=== PATIENT | female | born 1955 | race Caucasian/White ===

== ENCOUNTER → 2018-02-21 14:07 | Outpatient (CLI) | payer BC, SELFPAY ==
--- NOTE | 2018-02-21 14:10 | MM_ITS ---
MM Dig screening mamm BI w/CAD ORDERING PHYSICIAN : Mik Marin MD PATIENT AGE: 62 years GENDER: Female COMPARISON: January 2017, 2015, 2014 and October 2013 distal bowel mammogram studies. The INDICATION: ITS.REASON: SCREENING no hormones. No new complaints. Noncontributory family history. TECHNIQUE: Standard CC and MLO images were obtained. R2 CAD reviewed. FINDINGS: Moderate fibroglandular elements remaining throughout both breast .. Prior films are helpful and supportive stable appearance bilaterally with no significant new findings. Stable mild asymmetry. CAD computer review highlights no areas of significant concern either RIGHT BREAST:No new areas of concern. LEFT BREAST:. No new areas of significant concern. Asymmetric area of density at the far lateral left breast unchanged. IMPRESSION: Stable bilateral mammogram. Bilateral follow-up in one year recommended BI-RADS Category: 1 Negative RECOMMENDED FOLLOW-UP: 1YR 1 YEAR FOLLOW-UP (A letter has been sent to the patient regarding results of the study.)
== END ==
PROVIDERS: PCP Family Medicine; Visit Provider Family Medicine
DX: Z12.31 Encounter for screening mammogram for malignant neoplasm of breast (principal)
CPT/HCPCS: 77067

== ENCOUNTER → 2018-11-14 06:55 | Outpatient (CLI) | payer BC, SELFPAY ==
[2018-11-14 07:44] LABS: Basophils % 0.9 % (0.1-2.0); Eosinophils # 0.1 K/mm3 (0.0-0.4); Eosinophils % 2.4 % (0.1-12.0); Hematocrit 41.6 % (37.0-47.0); Hemoglobin 13.4 g/dL (12.2-16.2); Lymphocytes # 1.3 K/mm3 (0.7-4.5); Lymphocytes % 29.4 % (10-50); Mean Corpuscular HGB Conc 32.1 g/dL (31.8-35.4); Mean Corpuscular Hemoglobin 30.8 pg (27.0-31.2); Mean Corpuscular Volume 95.7 fl (81-99); Mean Platelet Volume 7.7 fl (7.4-10.4); Monocytes # 0.2 K/mm3 (0.1-1.0); Monocytes % 4.3 % (1.7-9.3); Neutrophils # 2.9 K/mm3 (1.8-7.8); Platelet Count 174 K/mm3 (142-424); Red Blood Count 4.35 M/mm3 (4.20-5.40); Red Cell Distribution Width 13.9 % (11.5-17.5); White Blood Count 4.6 K/mm3 (4.8-10.8)
[2018-11-14 08:46] LABS: Alanine Aminotransferase 20 U/L (12-78); Albumin Level 3.7 gm/dL (3.4-5.0); Albumin/Globulin Ratio 1.2 (1.1-1.8); Alkaline Phosphatase 57 U/L (46-116); Aspartate Amino Transferase 15 U/L (15-37); Bilirubin,Total 0.4 mg/dL (0.2-1.0); Blood Urea Nitrogen 13 mg/dL (7-18); Carbon Dioxide 31 mmol/L (21.0-32.0); Chloride 103 mmol/L (98-107); Chol/HDL Ratio 3.2 (1-3.5); Cholesterol 208 mg/dL (140-200); Estimated Glomerular Filt Rate 84 ml/min (>60); Ferritin 54 ng/mL (8-388); Free T4 (Free Thyroxine) 1.14 ng/dl (0.76-1.46); GFR (African American) 102 ML/MIN (>60); Globulin 3.2 gm/dl (1.3-3.2); Glucose 85 mg/dL (74-106); HDL Cholesterol 66 mg/dL (29-89); LDL Cholesterol 131 mg/dL (0-130); Sodium 141 mmol/L (136-145); Thyroid Stimulating Hormone 2.68 uIU/ml (0.358-3.740); Total Protein,Serum 6.9 gm/dL (6.4-8.2); Triglycerides 56 mg/dL (30-200); VLDL Cholesterol 11 mg/dL (0-40)
[2018-11-15 08:31] LABS: Iron 59 ug/dL (27-139); UIBC 209 ug/dL (118-369)
[2018-11-15 22:28] LABS: Iron Saturation 22 % (15-55)
== END ==
PROVIDERS: PCP Family Medicine; Visit Provider Family Medicine
DX: E03.9 Hypothyroidism, unspecified (principal); E78.5 Hyperlipidemia, unspecified; D50.8 Other iron deficiency anemias
CPT/HCPCS: 36415; 80053; 80061; 82728; 83540; 83550; 84439; 84443; 85025

== ENCOUNTER → 2019-01-13 10:10 | Outpatient (CLI) | payer BC, SELFPAY ==
--- NOTE | 2019-01-13 10:16 | XR_ITS ---
PROCEDURE: XR LUMBAR SPINE MIN 4V CLINICAL INDICATION: RT SIDED SCIATICA COMPARISON: No exams were available for comparison FINDINGS: There is severe degenerative disc disease at L4-5 with grade 2 spondylolisthesis of L4 of 17 mm with facet hypertrophic changes. No acute fracture or dislocation is evident. IMPRESSION: Grade 2 spondylolisthesis of L4 on L5 with severe degenerative disc disease at that level Dictated by: Delonte Mukherjee MD 01/13/2019 17:47 Electronically signed by Delonte Mukherjee MD in [place] 01/13/2019 17:47
--- NOTE | 2019-01-13 10:16 | XR_ITS ---
PROCEDURE: XR HIP RT 2-3V W/PELVIS CLINICAL INDICATION: RT HIP PAIN COMPARISON: No exams were available for comparison FINDINGS: There are mild osteoarthritic changes involving both hips with decrease in the joint space, osteosclerosis, and osteophyte formation along the inferior aspect of the acetabulum. No fracture or dislocation. No lytic or blastic change. IMPRESSION: Osteoarthritis of the hips Dictated by: Delonte Mukherjee MD 01/13/2019 17:48 Electronically signed by Delonte Mukherjee MD in [place] 01/13/2019 17:48
== END ==
PROVIDERS: PCP Family Medicine; Visit Provider Family Medicine
DX: M25.551 Pain in right hip (principal); M54.31 Sciatica, right side
CPT/HCPCS: 72110; 73502

== ENCOUNTER → 2019-01-30 13:23 | Outpatient (CLI) | payer BC, SELFPAY ==
--- NOTE | 2019-01-30 13:31 | MR_ITS ---
PROCEDURE: MR LUMBAR SPINE WO CON CLINICAL INDICATION: RIGHT SIDED SCIATICA, LUMBAR DDD Right lower extremity and right buttock pain, prior surgery COMPARISON: XR LUMBAR SPINE MIN 4V from 01/13/2019 TECHNIQUE: Standard multiplanar multiecho sequences are performed without contrast. 3-D MIP and myelographic images are also rendered and reviewed FINDINGS: The spinal cord ends at the L1 level. T11-T12: Degenerative disc disease. T12-L1: Mild degenerative disc disease. L1-L2: Unremarkable. L2-L3: Minimal bulging disc. L3-L4: Minimal bulging disc with mild facet and ligamentum hypertrophy with mild bilateral lateral recess narrowing from the facet and ligamentum hypertrophy. L4-5: There is 12 mm spondylolisthesis of L4 on L5 with severe degenerative disc disease at that level. A definite pars defect is not appreciated. There are facet arthritic changes at L4-L5 with severe canal stenosis at this level with the canal measuring approximately 5-6 mm. There is severe bilateral lateral recess and foraminal narrowing. At T1 and T2 hyperintensities noted in the L5 vertebral body at 16 mm. This remains hyperintense on the STIR images and is consistent with a hemangioma with only slight increased signal on the T1 weighted images. L5-S1: Facet ligamentum hypertrophy with mild left-sided foraminal narrowing No extruded herniated disc are evident. No acute fracture IMPRESSION: 1. L4-5: There is 12 mm spondylolisthesis of L4 on L5 with severe degenerative disc disease at that level. There are facet arthritic changes at L4-L5 with severe canal stenosis at this level with the canal measuring approximately 5-6 mm. There is severe bilateral lateral recess and foraminal narrowing. Hemangioma at L5. The 2. Other degenerative changes as described above. 3. No extruded herniated disc evident Dictated by: Delonte Mukherjee MD 01/31/2019 05:51 Electronically signed by Delonte Mukherjee MD in [place] 01/31/2019 05:51
== END ==
PROVIDERS: PCP Family Medicine; Visit Provider Family Medicine
DX: M54.31 Sciatica, right side (principal); M51.36 Other intervertebral disc degeneration, lumbar region; M43.16 Spondylolisthesis, lumbar region
CPT/HCPCS: 72148; 76376

== ENCOUNTER → 2019-03-02 13:43 | Outpatient (POV) | payer BC, SELFPAY ==
[2019-03-02 13:52] VITALS: BP 146/78; PULSE 78; RESP 18; O2SAT 99; BMI 25.8
--- NOTE | 2019-03-02 14:36 | HMH.PMCON ---
Assessment and Plan (1) Sacroiliitis Current visit: Yes Status: Chronic Category: Medical Code(s): M46.1 - Sacroiliitis, not elsewhere classified (2) Low back pain Current visit: Yes Status: Chronic Qualifiers: Chronicity: chronic Back pain laterality: bilateral Sciatica presence: with sciatica Category: Medical Code(s): M54.5 - Low back pain (3) Degenerative joint disease (DJD) of lumbar spine Current visit: Yes Status: Chronic Qualifiers: Spinal osteoarthritis complication: with radiculopathy Qualified Code(s): M47.26 - Other spondylosis with radiculopathy, lumbar region Category: Medical Code(s): M47.816 - Spondylosis without myelopathy or radiculopathy, lumbar region (4) Spinal stenosis Current visit: Yes Status: Chronic Qualifiers: Spinal region: lumbar Category: Medical Code(s): M48.00 - Spinal stenosis, site unspecified (5) Lumbar radiculopathy Current visit: Yes Status: Chronic Category: Medical Code(s): M54.16 - Radiculopathy, lumbar region (6) Facet arthropathy Current visit: Yes Status: Chronic Category: Medical Code(s): M47.819 - Spondylosis without myelopathy or radiculopathy, site unspecified - Assessment and plan all Dx Assessment and Plan for all problems:: The patient does have notable point tenderness over her right SI joint. She also has point tenderness over her right trochanteric bursa. Her symptoms and positive Ghada, Griffin's, compression, and distraction test, the patient would benefit from a right SI joint injection and a right trochanteric bursa injection. We will schedule her for the injections. The patient and I did discuss diclofenac gel, however, the patient says that she has not met her deductible and will not be able to afford medication at this time. She will continue, however, with a home stretching program. She is not interested in taking any type of oral anti-inflammatories. Patient's been instructed to contact clinic if she has any concerns before next point. Dr. Alcantara has reviewed this note and agrees with this plan of care. This note was dictated using voice recognition software and make contain errors or omissions. HPI - Data of Consult Patient: new to practice Consult date: 03/02/19 Requesting Physician: Carolina Lamb APRN Primary Care Provider: Mik Marin MD - Consult Narrative Reason for consult: Low back pain, right groin pain, right hip pain, right leg pain History of present illness: Ms. Leslie is a 63 year old female Patient is a pleasant 63-year-old white female who presents today for consultation for low back pain with lumbar radiculopathy symptoms, as well right groin pain and right hip pain. Patient reports that her pain has been ongoing for the last 3 months. She says the pain is worse with movement. The pain does improve with sitting. Patient says that her pain begins in her low back with radiation into her right groin area and right hip area. The pain does radiate to the medial thigh area and stops her knee. She rates her pain a 6 out of 10 today. She does admit that she does not take any type of oral medications. She does not like taking ibuprofen or any [id number] oral medications. Patient says that her mother developed severe reactions to oral medications and she will not take them as a result. She does, however, continue with home stretching program. Patient says that she exercises approximately 45 minutes every morning. Patient has undergone physical therapy as well. She tries ice and heat therapies but is gotten little to no relief. Patient says that she has had recent imaging of her lumbar spine. CC: Carolina Lamb APRN [facility] History I have reviewed the patient's past medical history: Yes Medical History: Denies:: Diabetes Mellitus Type 1, Diabetes Mellitus Type 2 *Have you ever received a pneumonia vaccine?: Yes *Have you received a flu vaccine this s
== END ==
PROVIDERS: PCP Family Medicine; Visit Provider Clinical Nurse Specialist Family Health
DX: M46.1 Sacroiliitis, not elsewhere classified (principal); M47.816 Spondylosis without myelopathy or radiculopathy, lumbar region; M48.00 Spinal stenosis, site unspecified; M54.16 Radiculopathy, lumbar region
CPT/HCPCS: 99202

== ENCOUNTER → 2019-03-05 10:08 | Outpatient (CLI) | payer BC, SELFPAY ==
--- NOTE | 2019-03-05 10:12 | MM_ITS ---
PROCEDURE: MM DIG SCREENING MAMM BI W/CAD Patient Age:63Y CLINICAL INDICATION: SCREENING 63-year-old no hormones previous total hysterectomy. No new complaints. No family history (patient adopted) COMPARISON: [facility] DIGITAL MAMM-SCREEN BILATERAL from 10/02/2010 [facility] DIGITAL MAMM-SCREEN BILATERAL from 10/03/2011 [id number] DIG MAMM-DX UNIL ADD VIEWS-RT from 10/26/2011 [facility] DIG MAMM-SCREEN [place] from 10/28/2012 [facility] DIG MAMM-SCREEN [place] from 11/10/2013 [facility] DIG MAMM-SCREEN [place] from 01/27/2015 [facility] DIG MAMM-SCREEN [place] from 01/30/2016 [facility] DIG MAMM-SCREEN [place] W/CAD from 01/31/2017 [facility] MM Dig screening mamm BI w/CAD from 02/21/2018 TECHNIQUE: . Standard CC and MLO images were obtained. R2 CAD reviewed. FINDINGS: Moderate density breast but no new suspicious or dominant mass but no suspicious calcifications. CAD highlights no areas of significant concern. No significant change since prior studies-stable mild asymmetry. Right breast stable with no new areas of concern. Small stable focal area of density, possible dilated duct vs overlapping tissue, lateral retroareolar region on CC view and again seen towards superior breast but this unchanged since 2016 and 2014. Can be followed safely. Left mammogram stable no new areas of concern . Left breast bilateral follow-up 1 year recommended IMPRESSION: Stable bilateral mammogram No new areas of of concern Bilateral follow-up 1 year recommended BI-RAD Category: 2 Benign Finding(s) FOLLOW-UP: 1YR 1 Year Follow-up (A letter has been sent to the patient regarding results of the study.) Complete Dictated by: Frank Vazquez MD 03/06/2019 09:03 Electronically signed by Frank Vazquez MD in [place] 03/06/2019 09:03
== END ==
PROVIDERS: PCP Family Medicine; Visit Provider Family Medicine
DX: Z12.31 Encounter for screening mammogram for malignant neoplasm of breast (principal)
CPT/HCPCS: 77067

== ENCOUNTER → 2019-04-14 10:41 | Outpatient (POV) | payer BC, SELFPAY ==
[2019-04-14 11:21] VITALS: BP 165/63; PULSE 70; RESP 18; O2SAT 98; BMI 25.8
--- NOTE | 2019-04-14 12:34 | P.CONS_ITS ---
[facility] Pain Management SOAP Note Subjective:: Patient is a pleasant 64-year-old white female who presents today for follow-up after a sacroiliac joint injection and a piriformis injection. Patient was doing well until recently but her pain pattern has changed. She is now having radiation down her legs along with muscle cramps. She rates her pain a 9 out of 10. Patient and I had discussed the potential epidural steroid injection I do believe this would be beneficial she is having low back and radiation now into her feet. Patient is not on any anticoagulation therapy. She is continuing a home stretching program. Patient is on anti-inflammatories. She has had pain for over 6 months. ROS General: no recent weight change, no fever, no sleep disturbances Respiratory: no cough, no shortness of air, no recurring pulmonary infections Cardiovascular/Peripheral Vascular: No chest pain, No palpitations, no edema, no shortness of breath. Gastrointestinal: no new onset incontinence, normal bowel movements reported Genitourinary: no new onset incontinence Musculoskeletal: Back pain, leg pain Psychiatric: normal mood/ affect, Neurological: [denies new onset weakness in extremities], [denies new onset balance issues] Objective:: Physical Exam General: Alert and oriented x3, no acute distress, pleasant and cooperative, [on room air] Lungs: Resps E/U, Symmetrical chest expansion, Eyes: PERRL Musculoskeletal: Flexion and extension of lumbar spine somewhat guarded secondary to pain, deep tendon reflexes normal, strength in upper and lower extremities [5/5], [abnormal gait noted] Neurological: speech clear, guest relations representative equal, no gross sensory deficits Assessment:: Degenerative disc disease lumbar spine with lumbar radiculopathy Plan:: We will plan L4-L5 lumbar epidural steroid injection for the patient given the symptomology I do believe it would be beneficial. She is been instructed to call the office if she has any issues prior to her next appointment. Patient will be reassessed after injection. Dr. Alcantara has reviewed this note and agrees with this plan of care. This note was dictated using voice recognition software and may contain errors or omissions [facility] History I have reviewed the patient's past medical history: Yes Medical History: Denies:: Cancer, Diabetes Mellitus Type 1, Diabetes Mellitus Type 2, MRSA, Seizures *Have you ever received a pneumonia vaccine?: Yes *Have you received a flu vaccine this season?: Yes Other Medical History: Reports: Thyroid Disease Laterality Cases: Right: Arthroscopy Knee, Bilateral: Tonsillectomy Other Surgeries: Yes: (X2), Hysterectomy-Total, Ureter Stent, Other (BUNION SURGERY) Amputation: No Fractures: No - *Social History Smoking Status: Never smoker Alcohol Intake: never *Occupational Status:: other Housing: house Household Members: spouse *Travel in the last 8 weeks: None Family Hx:: No significant family history
== END ==
PROVIDERS: PCP Family Medicine; Visit Provider Clinical Nurse Specialist Family Health
DX: M46.1 Sacroiliitis, not elsewhere classified (principal); M51.16 Intervertebral disc disorders with radiculopathy, lumbar region; Z87.39 Personal history of other diseases of the musculoskeletal system and connective tissue
CPT/HCPCS: 99212

== ENCOUNTER → 2019-05-11 08:45 | Outpatient (POV) | payer BC, SELFPAY ==
[2019-05-11 08:55] VITALS: BP 135/92; PULSE 70; RESP 18; O2SAT 99; BMI 25.8
--- NOTE | 2019-05-11 09:03 | HMH.PAINSOAP ---
[facility] Pain Management SOAP Note Subjective:: Patient is a very pleasant 64-year-old white female who presents today for follow-up after lumbar epidural steroid injection. She has had improved pain control since then. Patient rates her pain a 5 out of 10 today. She is also on vitamin C and D however she is weaning down on these doses. She is able to walk on the treadmill longer and at a higher incline. Patient I discussed an SI joint belt as well just to help her during her activity. She is quite active and works at her house and also works out at the gym. She is not on any anticoagulation therapy. She is continuing a stretching program. ROS General: no recent weight change, no fever, no sleep disturbances Respiratory: no cough, no shortness of air, no recurring pulmonary infections Cardiovascular/Peripheral Vascular: No chest pain, No palpitations, no edema, no shortness of breath. Gastrointestinal: no new onset incontinence, normal bowel movements reported Genitourinary: no new onset incontinence Musculoskeletal: Back pain, leg pain Psychiatric: normal mood/ affect Neurological: [denies new onset weakness in extremities], [denies new onset balance issues] Objective:: Physical Exam General: Alert and oriented x3, no acute distress, pleasant and cooperative, [on room air] Lungs: Resps E/U, Symmetrical chest expansion, Eyes: PERRL Musculoskeletal: Flexion and extension of lumbar spine somewhat guarded secondary to pain, deep tendon reflexes normal, strength in upper and lower extremities [5/5], normal gait noted Neurological: speech clear, line palletizer equal, no gross sensory deficits Assessment:: Degenerative disc disease lumbar spine with lumbar radiculopathy symptoms Plan:: We will do the patient for repeat L4-L5 lumbar epidural steroid injection given the efficacy of the last one. I will follow-up with the patient after this reassess her symptoms at that time she has been instructed to call the office if she has any issues prior to her next appointment. Dr. Alcantara has reviewed this note and agrees with this plan of care. This note was dictated using voice recognition software and may contain errors or omissions [facility] History I have reviewed the patient's past medical history: Yes Medical History: Denies:: Cancer, Diabetes Mellitus Type 1, Diabetes Mellitus Type 2, MRSA, Seizures *Have you ever received a pneumonia vaccine?: Yes *Have you received a flu vaccine this season?: Yes Other Medical History: Reports: Thyroid Disease Laterality Cases: Right: Arthroscopy Knee, Bilateral: Tonsillectomy Other Surgeries: Yes: (X2), Hysterectomy-Total, Ureter Stent, Other (BUNION SURGERY) Amputation: No Fractures: No - *Social History Smoking Status: Never smoker Alcohol Intake: never *Occupational Status:: other Housing: house Household Members: spouse *Travel in the last 8 weeks: None Family Hx:: No significant family history
== END ==
PROVIDERS: PCP Family Medicine; Visit Provider Clinical Nurse Specialist Family Health
DX: M51.16 Intervertebral disc disorders with radiculopathy, lumbar region (principal)
CPT/HCPCS: 99212

== ENCOUNTER → 2019-06-08 11:10 | Outpatient (POV) | payer BC, SELFPAY ==
[2019-06-08 12:13] VITALS: BP 129/78; PULSE 66; RESP 18; O2SAT 99; BMI 25.8
--- NOTE | 2019-06-08 12:22 | P.CONS_ITS ---
[facility] Pain Management SOAP Note Subjective:: Patient is a pleasant 64-year-old white female who we are treating for low back pain and leg pain. Patient is doing extremely well rating her pain a 3 out of 10. She is following up after lumbar epidural steroid injection. at this point patient is going to continue her stretching and her physical activity. ROS General: no recent weight change, no fever, no sleep disturbances Respiratory: no cough, no shortness of air, no recurring pulmonary infections Cardiovascular/Peripheral Vascular: No chest pain, No palpitations, no edema, no shortness of breath. Gastrointestinal: no new onset incontinence, normal bowel movements reported Genitourinary: no new onset incontinence Musculoskeletal: Back pain, leg pain Psychiatric: normal mood/ affect Neurological: [denies new onset weakness in extremities], [denies new onset balance issues] Objective:: Physical Exam General: Alert and oriented x3, no acute distress, pleasant and cooperative, [on room air] Lungs: Resps E/U, Symmetrical chest expansion, Eyes: PERRL Musculoskeletal: Flexion and extension of lumbar spine somewhat guarded secondary to pain, deep tendon reflexes normal, strength in upper and lower extremities [5/5], slightly antalgic gait noted Neurological: speech clear, community health planning director equal, no gross sensory deficits Assessment:: Degenerative disc disease lumbar spine with lumbar radiculopathy symptoms Plan:: We will see the patient back in 3 months reassess her symptoms at that time she has been instructed to call the office if she has any issues prior to her next appointment. Dr. Alcantara has reviewed this note and agrees with this plan of care. This note was dictated using voice recognition software and may contain errors or omissions [facility] History I have reviewed the patient's past medical history: Yes Medical History: Denies:: Cancer, Diabetes Mellitus Type 1, Diabetes Mellitus Type 2, MRSA, Seizures *Have you ever received a pneumonia vaccine?: Yes *Have you received a flu vaccine this season?: Yes Other Medical History: Reports: Thyroid Disease Laterality Cases: Right: Arthroscopy Knee, Bilateral: Tonsillectomy Other Surgeries: Yes: (X2), Hysterectomy-Total, Ureter Stent, Other (BUNION SURGERY) Amputation: No Fractures: No - *Social History Smoking Status: Never smoker Alcohol Intake: never *Occupational Status:: other Housing: house Household Members: spouse *Travel in the last 8 weeks: None Family Hx:: No significant family history
== END ==
PROVIDERS: PCP Family Medicine; Visit Provider Clinical Nurse Specialist Family Health
DX: M51.16 Intervertebral disc disorders with radiculopathy, lumbar region (principal)
CPT/HCPCS: 99212

== ENCOUNTER 2019-07-10 09:50 | Day surgery (SDC) | payer BC, SELFPAY ==
[2019-07-10 10:20] VITALS: BP 141/74; PULSE 84; RESP 18; TEMP 36.6; O2SAT 97; BMI 25.8
[2019-07-10 10:38] VITALS: BP 141/74; PULSE 84; RESP 18; TEMP 36.6; O2SAT 97; BMI 25.8
[2019-07-10 10:43] VITALS: BP 119/75; PULSE 76; RESP 18; TEMP 36.4; O2SAT 99
[2019-07-10 10:44] VITALS: BP 120/75; PULSE 77; RESP 18; TEMP 36.8; O2SAT 99
--- NOTE | 2019-07-10 10:52 | HMH.PMPROC ---
- Procedure Date: 07/10/19 Time: 10:52 Anesthesiologist:: Demar Alcantara MD Complications:: None Pre-procedure Diagnosis:: Degenerative disc disease of lumbar spine with lumbar radiculopathy symptoms Post-procedure Diagnosis:: Same Indications for Procedure:: This patient is a pleasant 64-year-old white female who we have been treating for low back pain with lumbar radiculopathy symptoms. She is done well with epidural steroid injections in the past. Her right side is much better. Now she is having some symptoms down her left side. She has difficulty with lifting her left leg. She is having some pain all the way down into her anterior thigh and foot. I believe she would benefit from a repeat lumbar epidural steroid injection concentrating on the left L4-L5 region. We will do this today. This pain is starting to affect her activities of daily living and functionality. We will do an injection today to keep her off oral opioids and out of the emergency room. Procedure Details:: Lumbar epidural steroid injection under fluoroscopy Informed consent was obtained and the risk and benefits of the procedure was explained to the patient. The patient was taken to the procedure room. The patient was placed prone on the procedure table. The patient was prepped and draped in sterile fashion. C-arm fluoroscopy was used to view the lumbar spine. Skin and subcutaneous tissues were anesthetized using lidocaine. I placed an 18-gauge epidural needle and advanced into the L4-L5 interspace using fluoroscopic guidance and [id number] to air. After confirmation of needle placement in the epidural space with dye I injected 2 mL of lidocaine 1.5% with Depo-Medrol 80 mg. Patient tolerated the procedure well with no complications. Plan and Disposition:: We will follow-up with her in 2 weeks. Will reevaluate her symptoms at that time. We will plan on a repeat lumbar epidural steroid injection if this helps. If this does not help she may benefit from facet joint injections to that side.
[2019-07-10 10:59] VITALS: BP 138/83; PULSE 71; RESP 18; O2SAT 97
== END 2019-07-10 11:01 | disposition home or self-care (01) ==
LOC: SC.PAINP 07-13 20:35
PROVIDERS: PCP Family Medicine; Visit Provider Anesthesiology
DX: M51.16 Intervertebral disc disorders with radiculopathy, lumbar region (principal)
CPT/HCPCS: 62323; 99212; J1040; Q9966

== ENCOUNTER → 2019-07-27 08:50 | Outpatient (POV) | payer BC, SELFPAY ==
--- NOTE | 2019-07-27 09:06 | HMH.VVPMSO ---
[facility] Virtual Visit SOAP Consent for virtual visit:: With the recent concerns about the COVID-19, we are trying to minimize exposure to you by shifting to telehealth appointments whenever possible. It restricts me from seeing you in person, but the trade off is protecting you during this pandemic. Can you see and hear me okay, and do you consent to this option? If not, I would be happy to see if we can reschedule your appointment in the future, when feasible. Has patient consented to this virtual visit?: Yes Subjective:: Patient is a 64-year-old white female we been treating for low back pain lumbar radiculopathy. She status post a lumbar epidural steroid injection which she has had 90% relief of her symptoms. Patient rates her pain a 1 out of 10. Patient's only complaint today is right sided knee pain. She like to see the orthopedic surgeon in regards to this. We will send her to the see if she potentially could do some injective therapy. ROS General: no recent weight change, no fever, no sleep disturbances Respiratory: no cough, no shortness of air, no recurring pulmonary infections Cardiovascular/Peripheral Vascular: No chest pain, No palpitations, no edema, no shortness of breath. Gastrointestinal: no new onset incontinence, normal bowel movements reported Genitourinary: no new onset incontinence Musculoskeletal: Back pain at times, right knee pain Psychiatric: normal mood/ affect, Neurological: [denies new onset weakness in extremities], [denies new onset balance issues] Objective:: Physical exam: Constitutional: Healthy appearing, well-developed, alert, in no acute distress Psychiatric: Judgment and insight intact, Alert and oriented x4 Mood and affect: Mood normal, affect appropriate Head and face: Inspection: Normocephalic atraumatic, extraocular movement intact Respiratory: Breathing nonlabored, nondyspneic Cardiovascular: No cyanosis, clubbing, or edema observed Skin: Head and neck: Skin with no lesions or rash observed Gait: Able to walk without assistive device: Able to heel and toe walk Neurologic: Sensation grossly intact per patient Musculoskeletal: Decreased range of motion right knee Assessment:: Degenerative disc disease lumbar spine with lumbar radiculopathy and right knee pain Plan:: We will see the patient back in 2 months reassess her symptoms at that time. This encounter was performed as a telemedicine visit via secure 2 way video and audio to minimize risk and transmission of Covid-19. The patient and we understand the limitations of a telemedicine visit including inability to check reflexes, possibly missing subtle findings on physical exam. Alternative options were presented to the patient and the patient elected to proceed with the visit. We specifically discussed risk factors for Covid-19 including age, heart or lung disease, diabetes, immunosuppression and travel. We also discussed that NSAIDs may worsen Covid-19 infection symptoms and that they should not be used to treat Covid-19 symptoms. Patient was also informed that corticosteroids in any form oral or injectable will decrease immune response and may increase risk of Covid-[address] Alcantara has reviewed this patient's chart and this note and agrees with plan of care. Patient has been instructed to call the office if they have any issues prior to the next appointment. Time In:: 09:00 Time Out:: 09:10 [facility] History I have reviewed the patient's past medical history: Yes Medical History: Denies:: Cancer, Diabetes Mellitus Type 1, Diabetes Mellitus Type 2, MRSA, Seizures *Have you ever received a pneumonia vaccine?: Yes *Have you received a flu vaccine this season?: Yes Other Medical History: Reports: Hypothyroidism, Thyroid Disease Laterality Cases: Right: Arthroscopy Knee, Bilateral: Tonsillectomy Other Surgeries: Yes: (X2), Hysterectomy-Total, Ureter Stent, Other (BUNION SURGERY) Amputation: No Fractures:
== END ==
PROVIDERS: Visit Provider Clinical Nurse Specialist Family Health
DX: M51.16 Intervertebral disc disorders with radiculopathy, lumbar region (principal); M25.561 Pain in right knee
CPT/HCPCS: 99212

== ENCOUNTER → 2019-08-07 09:03 | Outpatient (POV) | payer BC, SELFPAY ==
[2019-08-07 09:11] VITALS: BP 144/86; PULSE 80; RESP 18; TEMP 36.7; O2SAT 99; BMI 25.8
--- NOTE | 2019-08-07 09:58 | HMH.PAINSOAP ---
[facility] Pain Management SOAP Note Subjective:: This patient is a pleasant 64-year-old white female who we have been treating for low back pain with lumbar radiculopathy symptoms. She is done very well with all her previous injections. Now she has some residual pain in her right knee. She is scheduled to see Dr. Bojorquez next week. She may be a candidate for [employer] PCS stimulation. We will follow-up with her after she sees Dr. Bojorquez to go over her treatment plan and see if she may benefit from [employer] PCS stimulation of the femoral nerve. Objective:: Alert and oriented x3 in no acute distress. Patient does have an antalgic gait. There is some swelling of the right knee. Motor strength of the lower extremities is 5/5. There is no gross sensory deficit. Assessment:: Degenerative disc disease of lumbar spine with lumbar radiculopathy symptoms with chronic right knee pain. Plan:: She is scheduled to see Dr. Bojorquez next week. We will follow-up with her after her appointment Dr. Bojorquez. We will go over her treatment plan. And she may be a candidate for [employer] PCS stimulation of the femoral nerve if she is not an operative candidate. [facility] History Medical History: Denies:: Cancer, Diabetes Mellitus Type 1, Diabetes Mellitus Type 2, MRSA, Seizures *Have you ever received a pneumonia vaccine?: No *Have you received a flu vaccine this season?: No Other Medical History: Reports: Hypothyroidism, Thyroid Disease Laterality Cases: Right: Arthroscopy Knee, Bilateral: Tonsillectomy Other Surgeries: Yes: (X2), Hysterectomy-Total, Ureter Stent, Other (BUNION SURGERY) Amputation: No Fractures: No - *Social History Smoking Status: Never smoker Alcohol Intake: never *Occupational Status:: retired Housing: house Household Members: spouse *Travel in the last 8 weeks: None Family Hx:: No significant family history
[2019-08-07 10:13] VITALS: BP 144/86; PULSE 80; RESP 20; TEMP 36.7; O2SAT 99; BMI 25.8
== END ==
PROVIDERS: PCP Family Medicine; Visit Provider Anesthesiology
DX: M51.16 Intervertebral disc disorders with radiculopathy, lumbar region (principal); M25.561 Pain in right knee; G89.29 Other chronic pain
CPT/HCPCS: 99212

== ENCOUNTER → 2019-08-13 09:50 | Outpatient (CLI) | payer BC, SELFPAY ==
--- NOTE | 2019-08-13 09:58 | XR_ITS ---
PROCEDURE: XR KNEE RT 4V CLINICAL INDICATION: knee pain COMPARISON: No exams were available for comparison FINDINGS: No fracture or dislocation. No lytic or blastic change. There is normal mineralization. Moderate to severe osteoarthritic changes are present at the medial compartment and patellofemoral joint. There are numerous rounded areas of calcification in the popliteal region, suprapatellar region, and anterior knee joint consistent with synovial osteochondromatosis. Suprapatellar effusion is noted. Other findings:None. 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
== END ==
PROVIDERS: PCP Family Medicine; Visit Provider Orthopaedic Surgery
DX: M25.561 Pain in right knee (principal)
CPT/HCPCS: 73564

== ENCOUNTER → 2019-09-21 12:48 | Outpatient (CLI) | payer BC, SELFPAY ==
--- NOTE | 2019-09-21 12:50 | XR_ITS ---
PROCEDURE: XR KNEE LT 4V CLINICAL INDICATION: left knee pain COMPARISON: XR KNEE RT 4V from 08/13/2019 FINDINGS: There are [id number] osteoarthritic changes of the left knee involving all 3 compartments greatest at the medial compartment and patellofemoral joint. There is decrease in the joint space along with osteophyte formation. Osteophytes are present at the intercondylar region of the distal femur and at the tibial spines. Suspect small suprapatellar effusion. Other findings:None. IMPRESSION: Osteoarthritis Dictated by: Delonte Mukherjee MD 09/21/2019 13:30 Electronically signed by Delonte Mukherjee MD in [place] 09/21/2019 13:30
== END ==
PROVIDERS: PCP Family Medicine; Visit Provider Orthopaedic Surgery
DX: M25.562 Pain in left knee (principal)
CPT/HCPCS: 73564

== ENCOUNTER → 2019-11-18 09:23 | Outpatient (CLI) | payer BC, SELFPAY ==
--- NOTE | 2019-11-18 09:26 | XR_ITS ---
PROCEDURE: XR DEXA AXIAL SKELETON CLINICAL HISTORY: POST MENOPAPUSAL COMPARISON: No exams were available for comparison FINDINGS: The right hip BMD is 0.784 with a T-score of -1.3. The left hip BMD is 0.803 with a T-score of -1.1. The lumbar spine BMD is 1.000 with a T-score of -0.4. IMPRESSION: This patient is considered osteopenic according to the World Health Organization criteria. Bone density is between 10 and 25 percent below young normal. Fracture risk is moderate. Treatment is advised. Based on these results a follow-up exam is recommended in 2 year. Dictated by: Delonte Mukherjee MD 11/18/2019 21:14 Delonte Mukherjee MD in [place] 11/19/2019 06:47
== END ==
PROVIDERS: PCP Family Medicine; Visit Provider Family Medicine
DX: Z13.820 Encounter for screening for osteoporosis (principal)
CPT/HCPCS: 77080

== ENCOUNTER → 2020-03-22 09:13 | Outpatient (CLI) | payer BC, SELFPAY ==
--- NOTE | 2020-03-22 09:19 | MM_ITS ---
PROCEDURE: MM DIG SCREENING MAMM BI W/CAD Digital Breast Tomosynthesis Included CLINICAL INDICATION: SCREENING There is no personal or family history of breast cancer. COMPARISON: MG DMSB DIG MAMM-SCREEN [place] W/CAD from 01/31/2017 MG SCBI MM Dig screening mamm BI w/CAD from 02/21/2018 MG MM DIG SCREENING MAMM BI W/CAD from 03/05/2019 TECHNIQUE: Standard CC and MLO images and 3D Tomosynthesis was obtained. R2 CAD reviewed. FINDINGS: Moderate diffuse fibroglandular densities are seen throughout both breasts and the findings are fairly symmetrical bilaterally. There is a mole marker right breast and there is a benign-appearing calcification right breast. There is no suspicious lesion in either breast and no suspicious microcalcifications. IMPRESSION: Stable exam with moderate breast density BI-RAD Category: 2 Benign Finding(s) FOLLOW-UP: 1YR 1 Year Follow-up (A letter has been sent to the patient regarding results of the study.) Dictated by: Dr. Teo Mcelroy MD 03/26/2020 09:36 Dr. Teo Mcelroy MD in [place] 03/26/2020 09:36
== END ==
PROVIDERS: PCP Family Medicine; Visit Provider Family Medicine
DX: Z12.31 Encounter for screening mammogram for malignant neoplasm of breast (principal)
CPT/HCPCS: 77063; 77067

== ENCOUNTER → 2020-04-04 10:31 | Outpatient (POV) | payer BC, SELFPAY ==
--- NOTE | 2020-04-04 11:06 | P.CONS_ITS ---
[facility] Pain Management SOAP Note Subjective:: Patient is a 65-year-old white female who we have been treating for low back pain with lumbar radiculopathy symptoms. She is done well in the past with lumbar epidural steroid injections. Patient rates her pain today a 5 out of 10. Patient has not been seen in our office for 8 months. Her pain is beginning to return. She would like to move forward with another lumbar epidural steroid injection. She is not on any anticoagulation therapy. She got up to 80% relief of her symptomology for several months. ROS General: no recent weight change, no fever, no sleep disturbances Respiratory: no cough, no shortness of air, no recurring pulmonary infections Cardiovascular/Peripheral Vascular: No chest pain, No palpitations, no edema, no shortness of breath. Gastrointestinal: no new onset incontinence, normal bowel movements reported Genitourinary: no new onset incontinence Musculoskeletal: Back pain, leg pain Psychiatric: normal mood/ affect Neurological: [denies new onset weakness in extremities], [denies new onset balance issues] Objective:: Physical Exam General: Alert and oriented x3, no acute distress, pleasant and cooperative, [on room air] Lungs: Resps E/U, Symmetrical chest expansion, Eyes: PERRL Musculoskeletal: Flexion and extension of lumbar spine somewhat guarded secondary to pain, deep tendon reflexes normal, strength in upper and lower extremities [5/5], slightly antalgic gait noted Neurological: speech clear, machine striper equal, no gross sensory deficits Assessment:: Degenerative disc disease lumbar spine lumbar radiculopathy Plan:: We will schedule an L4-L5 lumbar epidural steroid injection for the patient. Given the efficacy of this in the past I do believe it would benefit her. Patient's been instructed to call the office if she has any issues prior to her next appointment. She is continuing heat and ice therapy along with home stretching program. She has failed anti-inflammatories. I will follow-up with her after her injection reassess her symptoms at that time she has been instructed to call the office if she has any issues prior to her next appointment. Dr. Alcantara has reviewed this note and agrees with this plan of care. This note was dictated using voice recognition software and may contain errors or omissions [facility] History I have reviewed the patient's past medical history: Yes Medical History: Denies:: Cancer, Diabetes Mellitus Type 1, Diabetes Mellitus Type 2, MRSA, Seizures *Have you ever received a pneumonia vaccine?: Yes *Have you received a flu vaccine this season?: Yes Other Medical History: Reports: Hypothyroidism, Thyroid Disease Laterality Cases: Right: Arthroscopy Knee, Bilateral: Tonsillectomy Other Surgeries: Yes: Appendectomy, Colonoscopy, , Hysterectomy-Total, Ureter Stent, Other Amputation: No Fractures: No - *Social History Smoking Status: Never smoker Alcohol Intake: never *Occupational Status:: employed Housing: house Household Members: spouse *Travel in the last 8 weeks: None Family Hx:: No significant family history
[2020-04-04 11:10] VITALS: BP 138/85; PULSE 74; RESP 18; TEMP 36.8; O2SAT 99; BMI 25.8
== END ==
PROVIDERS: PCP Family Medicine; Visit Provider Clinical Nurse Specialist Family Health
DX: M51.16 Intervertebral disc disorders with radiculopathy, lumbar region (principal)
CPT/HCPCS: 99212; G0463

== ENCOUNTER 2020-04-08 10:55 | Day surgery (SDC) | payer BC, SELFPAY ==
[2020-04-08 11:24] VITALS: BP 153/69; PULSE 70; RESP 18; TEMP 36; O2SAT 99; BMI 25.8
[2020-04-08 11:41] VITALS: BP 159/69; PULSE 72; RESP 18; O2SAT 99
[2020-04-08 11:42] VITALS: BP 160/70; PULSE 74; RESP 18; O2SAT 99
--- NOTE | 2020-04-08 11:58 | HMH.PMPROC ---
- Procedure Date: 04/08/20 Time: 11:58 Anesthesiologist:: Demar Alcantara MD Complications:: None Pre-procedure Diagnosis:: Degenerative disc disease of lumbar spine with lumbar radiculopathy symptoms Post-procedure Diagnosis:: Same Indications for Procedure:: This patient pleasant 65-year-old white female who we are treating for low back pain with lumbar radiculopathy symptoms. She is done well in the past with previous lumbar epidural steroid injections. Pain is starting to return. Her last injection was approximately a month ago she was 80% better. We will do a repeat lumbar epidural steroid injections today to help her with her returning pain symptoms. Procedure Details:: Lumbar epidural steroid injection under fluoroscopy Informed consent was obtained and the risk and benefits of the procedure was explained to the patient. The patient was taken to the procedure room. The patient was placed prone on the procedure table. The patient was prepped and draped in sterile fashion. C-arm fluoroscopy was used to view the lumbar spine. Skin and subcutaneous tissues were anesthetized using lidocaine. I placed an 18-gauge epidural needle and advanced into the L4-L5 interspace using fluoroscopic guidance and [id number] to air. After confirmation of needle placement in the epidural space with dye I injected 2 mL of lidocaine 1.5% with Depo-Medrol 80 mg. Patient tolerated the procedure well with no complications. Plan and Disposition:: We will follow-up with her in 2 weeks. Will reevaluate her symptoms at that time.
[2020-04-08 12:19] VITALS: BP 125/76; PULSE 70; RESP 20; O2SAT 99
== END 2020-04-08 12:20 | disposition home or self-care (01) ==
LOC: SC.PAINP 10:56
PROVIDERS: PCP Family Medicine; Visit Provider Anesthesiology
DX: M51.16 Intervertebral disc disorders with radiculopathy, lumbar region (principal); E03.9 Hypothyroidism, unspecified
CPT/HCPCS: 62323; J1040; Q9966

== ENCOUNTER → 2020-04-11 14:05 | Outpatient (CLI) | payer BC, SELFPAY ==
--- NOTE | 2020-04-11 14:08 | XR_ITS ---
PROCEDURE: XR HIP RT 2-3V W/PELVIS CLINICAL INDICATION: RT hip Right hip pain COMPARISON: CR XR HIP RT 2-3V W/PELVIS from 01/13/2019 FINDINGS: [id number] osteoarthritic changes are present involving the right hip. Subchondral cystic changes are present involving the femoral head. Osteophyte is present along the inferior aspect of the acetabulum with a separate calcific density at this region measuring 12 mm and may be due to a osteophyte or loose body. IMPRESSION: Moderate osteoarthritic changes of the right hip with subchondral cystic changes with osteophyte versus loose body along the inferior and lateral aspect of the acetabulum CT may better differentiate between the 2 if clinically desired Dictated by: Delonte Mukherjee MD 04/11/2020 16:32 Delonte Mukherjee MD in [place] 04/11/2020 16:32
== END ==
PROVIDERS: PCP Family Medicine; Visit Provider Orthopaedic Surgery
DX: M25.551 Pain in right hip (principal)
CPT/HCPCS: 73502

== ENCOUNTER → 2020-04-18 12:31 | Outpatient (CLI) | payer BC, SELFPAY ==
--- NOTE | 2020-04-18 12:36 | XR_ITS ---
PROCEDURE: XR FOOT WT BEARING RT 3V CLINICAL INDICATION: pain COMPARISON: No exams were available for comparison FINDINGS: There is a cortical screw in the mid to distal shaft of the 1st metatarsal. Severe osteoarthritic changes are present at the 1st metatarsophalangeal joint. There is 5 mm medial displacement of the proximal phalanx of the great toe. There also appears to be postsurgical changes with surgical defect along the medial aspect of the 1st interphalangeal joint. There are mild osteoarthritic changes of the tarsometatarsal junction and midfoot with mild pes planus. Small calcaneal spur noted. IMPRESSION: Postsurgical and degenerative changes as described above Dictated by: Delonte Mukherjee MD 04/18/2020 14:56 Delonte Mukherjee MD in [facility] 04/18/2020 14:56
--- NOTE | 2020-04-18 12:36 | XR_ITS ---
PROCEDURE: XR FOOT WT BEARING LT 3V CLINICAL INDICATION: Pain COMPARISON: No exams were available for comparison FINDINGS: There has been prior fusion at the 2nd PIP joint. There is a cortical screw in the mid to distal shaft of the 1st metatarsal and a pin in the midshaft of the 1st metatarsal. There has been prior bunionectomy of the distal aspect of the 1st metatarsal. Osteoarthritic changes are present at the 1st 2nd 3rd and 4th metatarsal tarsal junction. There is pes planus. Small calcaneal spurs noted. There are mild osteoarthritic changes at the talonavicular and navicular cuneiform joint. IMPRESSION: Postsurgical and degenerative changes with pes planus as described above Dictated by: Delonte Mukherjee MD 04/18/2020 14:55 Delonte Mukherjee MD in [place] 04/18/2020 14:55
== END ==
PROVIDERS: PCP Family Medicine; Visit Provider Podiatrist
DX: M79.672 Pain in left foot (principal); M79.671 Pain in right foot
CPT/HCPCS: 73630

== ENCOUNTER → 2020-05-12 09:50 | Outpatient (POV) | payer BC, SELFPAY ==
[2020-05-12 12:37] VITALS: BP 125/55; PULSE 72; RESP 18; O2SAT 98; BMI 25.8
--- NOTE | 2020-05-12 12:58 | HMH.PAINSOAP ---
[facility] Pain Management SOAP Note Subjective:: Patient is a pleasant 65-year-old white female who presents today for follow-up after a lumbar epidural steroid injection. Patient is complaining of right low back pain with radiation into her right buttock, right groin and right hip. She also says the pain is radiating into her right knee. Patient says that she is scheduled for an appointment with Dr. Bojorquez tomorrow. She says that it is likely she will need to have surgery with Dr. Bojorquez. She does have tenderness noted over her right SI joint as well as pain into her hip and groin, however, she and I did discuss we would need to postpone any type of injective therapy at this time until the patient discusses possibility of surgery with Dr. Bojorquez. She is in agreement. She does rate her pain a 5 out of 10 today. Review of Systems General: No recent weight changes, no fever, no sleep disturbances Respiratory: No cough, no shortness of air, no recurring pulmonary infections Cardiovascular/peripheral vascular: No chest pain, no palpitations, no edema, no shortness of breath Gastrointestinal: No new onset incontinence, normal bowel movements reported Genitourinary: No new onset incontinence Musculoskeletal: Low back pain right side radiating into the right groin right buttock and right hip. Pain also radiating to right knee Psychiatric: Normal mood/affect Neurological: [Denies weakness in extremities], [denies balance issues] Objective:: Physical exam General: Alert and oriented x3, no acute distress, pleasant and cooperative, [on room air] Lungs: Respirations even and unlabored, symmetrical chest expansion Eyes: PERRL Musculoskeletal: Flexion and extension of lumbar spine somewhat guarded secondary to pain, deep tendon reflexes normal, strength in upper and lower extremities [5/5], [abnormal gait note, positive distraction test, positive compression test, positive Griffin's test Neurological: Speech clear, sewer head equal, no gross sensory deficit Assessment:: Sacroiliitis right side Plan:: Patient I did discuss a right SI joint injection. She is tender over her right SI joint. She is, however, scheduled for an appointment with Dr. Bojorquez tomorrow. We will postpone any type of injective therapy until she discusses plan of care with Dr. Bojorquez. If she does not plan on surgical intervention with Dr. Bojorquez, we can plan for a right SI joint injection. She will contact the clinic to let us know. The patient and I specifically discussed risk factors for COVID19. These risks include, but are not limited to age greater than 60, heart or lung disease, diabetes, immunosuppression, and travel. We also discussed NSAIDs may worsen COVID19 infection or symptoms. Patient should not use NSAIDs to treat COVID19 signs or symptoms. Patient was also informed that any type of corticosteroid of any form (oral or injection) will decrease the patient's immune system response and may increase the likelihood of COVID19 [address] Alcantara has reviewed this note and agrees with this plan of care. This note was dictated using voice recognition software and make contain errors or omissions. [facility] History I have reviewed the patient's past medical history: Yes Medical History: Denies:: Cancer, Diabetes Mellitus Type 1, Diabetes Mellitus Type 2, MRSA, Seizures *Have you ever received a pneumonia vaccine?: Yes *Have you received a flu vaccine this season?: Yes Other Medical History: Reports: Hypothyroidism, Thyroid Disease Laterality Cases: Right: Arthroscopy Knee, Bilateral: Tonsillectomy Other Surgeries: Yes: Appendectomy, Colonoscopy, , Hysterectomy-Total, Ureter Stent, Other Amputation: No Fractures: No - *Social History Smoking Status: Never smoker Alcohol Intake: never *Occupational Status:: employed Housing: house Household Members: spouse *Travel in the last 8 weeks: None Family Hx:: No significant family h
== END ==
PROVIDERS: PCP Family Medicine; Visit Provider Clinical Nurse Specialist Family Health
DX: M46.1 Sacroiliitis, not elsewhere classified (principal)
CPT/HCPCS: 99212; G0463

== ENCOUNTER 2020-05-20 09:04 | Day surgery (SDC) | payer BC, SELFPAY ==
[2020-05-20 09:28] VITALS: BP 136/66; BP 143/70; PULSE 65; PULSE 72; RESP 12; RESP 14; TEMP 36.9; TEMP 37.1; O2SAT 100; O2SAT 99; BMI 25.8
[2020-05-20 09:48] VITALS: BP 135/74; PULSE 74; RESP 18
[2020-05-20 09:49] VITALS: BP 138/74; PULSE 71; RESP 18; O2SAT 98
--- NOTE | 2020-05-20 09:52 | P.PCN_ITS ---
- Procedure Date: 05/20/20 Time: 09:52 Anesthesiologist:: Demar Alcantara MD Complications:: None Pre-procedure Diagnosis:: Sacroiliitis Post-procedure Diagnosis:: Same Indications for Procedure:: This patient is a pleasant 65-year-old white female who we are treating for bilateral hip pain. More pain is on the right side. She says Dr. Bojorquez is good to hold off on surgery to see if she responds to our injections. She is tender over both SI joints. She does have a positive Griffin's test bilaterally. She has a positive Ghada test bilaterally. She does have a positive SI joint compression test bilaterally. She has a positive distraction test bilaterally. We will plan on bilateral SI joint injections under fluoroscopy today to see if this will help with her pain symptoms. Procedure Details:: B/L SI joint injection under fluoroscopy Informed consent was obtained and the risks and benefits of the procedure was explained to the patient. The patient was taken to the procedure room and placed prone on the procedure table. The patient was prepped using ChloraPrep. The skin and subcutaneous tissues overlying the SI joints were anesthetized us ing lidocaine. I placed a 22-gauge needle first in the left SI joint and second in the right SI joint. Needle placement was confirmed with dye. After this we injected 5 mL bupivacaine 0.25% and Depo-Medrol 40 mg into each SI joint. Patient tolerated the procedure well with no complication. Plan and Disposition:: We will follow-up with her in 2 weeks. Will reevaluate symptoms at that time.
== END 2020-05-20 09:55 | disposition home or self-care (01) ==
LOC: SC.PAINP 09:05
PROVIDERS: PCP Family Medicine; Visit Provider Anesthesiology
DX: M46.1 Sacroiliitis, not elsewhere classified (principal); E03.9 Hypothyroidism, unspecified; Z88.5 Allergy status to narcotic agent; Z88.0 Allergy status to penicillin; Z87.59 Personal history of other complications of pregnancy, childbirth and the puerperium
CPT/HCPCS: 27096; G0260; J1030; Q9966

== ENCOUNTER → 2020-06-06 10:06 | Outpatient (POV) | payer BC, SELFPAY ==
[2020-06-06 10:44] VITALS: BP 121/74; PULSE 69; RESP 18; O2SAT 98; BMI 25.8
--- NOTE | 2020-06-06 12:41 | P.CONS_ITS ---
[facility] Pain Management SOAP Note Subjective:: Patient is a pleasant 65-year-old white female presents today for follow-up after bilateral SI joint injections. Patient is doing extremely well. Patient rates her pain a 2 out of 10. At this time she feels she is in a good place and does not need any additional injection therapy. She would like to return on an as-needed basis. ROS General: no recent weight change, no fever, no sleep disturbances Respiratory: no cough, no shortness of air, no recurring pulmonary infections Cardiovascular/Peripheral Vascular: No chest pain, No palpitations, no edema, no shortness of breath. Gastrointestinal: no new onset incontinence, normal bowel movements reported Genitourinary: no new onset incontinence Musculoskeletal: SI joint pain at times, knee pain Psychiatric: normal mood/ affect Neurological: [denies new onset weakness in extremities], [denies new onset balance issues] Objective:: Physical Exam General: Alert and oriented x3, no acute distress, pleasant and cooperative, [on room air] Lungs: Resps E/U, Symmetrical chest expansion, Eyes: PERRL Musculoskeletal: Flexion and extension of lumbar spine somewhat guarded secondary to pain, deep tendon reflexes normal, strength in upper and lower extremities [5/5], antalgic gait noted Neurological: speech clear, sample stitcher equal, no gross sensory deficits Assessment:: Sacroiliitis, knee pain Plan:: We will see the patient back on an as-needed basis she has been instructed to call the office if she begins to have pain return. Dr. Alcantara has reviewed this note and agrees with this plan of care. This note was dictated using voice recognition software and may contain errors or omissions [facility] History I have reviewed the patient's past medical history: Yes Medical History: Denies:: Cancer, Diabetes Mellitus Type 1, Diabetes Mellitus Type 2, MRSA, Seizures *Have you ever received a pneumonia vaccine?: No *Have you received a flu vaccine this season?: No Other Medical History: Reports: Hypothyroidism, Thyroid Disease. Denies: Blood Transfusion Reaction Laterality Cases: Right: Arthroscopy Knee, Bilateral: Tonsillectomy Other Surgeries: Yes: Appendectomy, Colonoscopy, , Hysterectomy-Total, Ureter Stent, Other (bladder surgery) Amputation: No Fractures: No - *Social History Smoking Status: Never smoker Alcohol Intake: never *Occupational Status:: other Housing: house Household Members: spouse *Travel in the last 8 weeks: None Family Hx:: No significant family history
== END ==
PROVIDERS: PCP Family Medicine; Visit Provider Clinical Nurse Specialist Family Health
DX: M46.1 Sacroiliitis, not elsewhere classified (principal); M25.569 Pain in unspecified knee
CPT/HCPCS: 99212; G0463

== ENCOUNTER → 2020-07-05 10:55 | Outpatient (CLI) | payer BC, SELFPAY ==
[2020-07-05 11:00] LABS: Microscopic, Urine URINE MICROSCOPIC (MICROSCOPIC)
--- NOTE | 2020-07-05 11:17 | XR_ITS ---
PROCEDURE: XR CHEST 2V CLINICAL HISTORY: PREOPERTATIVE COMPARISON: CT CTAC CTA-CHEST from 04/16/2016 CR CXR1 CHEST-PORTABLE from 04/16/2016 FINDINGS: The cardiomediastinal silhouette and pulmonary vascularity are within normal limits. The lungs are clear without infiltrates, suspicious nodules, or pleural effusions. No acute bony abnormalities. There are mild degenerate changes lower thoracic spine. IMPRESSION: No acute findings. Dictated by: Dr. Teo Mcelroy MD 07/05/2020 11:32 Dr. Teo Mcelroy MD in [place] 07/05/2020 11:32
[2020-07-05 11:26] LABS: Appearance,Urine CLEAR (Clear); Bilirubin,Urine Negative (Negative); Blood, Urine TRACE-L (Negative); Color,Urine YELLOW (Yellow); Glucose,Urine (UA) Negative (Negative); Ketones,Urine Negative (Negative); Leukocyte Esterase,Urine Negative (Negative); Nitrate,Urine Negative (Negative); Protein,Urine Negative (Negative); Specific Gravity, Urine <= 1.005 (1.005-1.030); Urobilinogen,Urine 0.2 EU/dl (0.2)
[2020-07-05 11:33] LABS: Basophils % 0.7 % (0.1-2.0); Eosinophils # 0.1 K/mm3 (0.0-0.4); Eosinophils % 0.8 % (0.1-12.0); Hematocrit 38.4 % (37.0-47.0); Hemoglobin 12.7 g/dL (12.2-16.2); Lymphocytes # 1.5 K/mm3 (0.7-4.5); Lymphocytes % 25.4 % (10-50); Mean Corpuscular HGB Conc 33.1 g/dL (31.8-35.4); Mean Corpuscular Hemoglobin 30.2 pg (27.0-31.2); Mean Corpuscular Volume 91.3 fl (81-99); Mean Platelet Volume 7.8 fl (7.4-10.4); Monocytes # 0.3 K/mm3 (0.1-1.0); Monocytes % 5.4 % (1.7-9.3); Neutrophils # 3.9 K/mm3 (1.8-7.8); Neutrophils % 67.6 % (37.0-80.0); Platelet Count 224 K/mm3 (142-424); Red Cell Distribution Width 13.3 % (11.5-17.5); White Blood Count 5.7 K/mm3 (4.8-10.8)
[2020-07-05 11:48] LABS: Chloride 101 mmol/L (98-107); Potassium 3.6 mmoL/L (3.5-5.1); Sodium 137 mmol/L (136-145)
[2020-07-05 11:50] LABS: Blood Urea Nitrogen 7 mg/dl (7-17); Estimated Glomerular Filt Rate 123 ml/min (>60); GFR (African American) 149 ML/MIN (>60)
[2020-07-05 11:51] LABS: Alanine Aminotransferase 13 U/L (12-78); Albumin Level 4.3 g/dl (3.5-5.0); Albumin/Globulin Ratio 1.5 (1.1-1.8); Alkaline Phosphatase 58 U/L (38-126); Anion Gap 10.6 mEq/L (5-15); Aspartate Amino Transferase 21 U/L (14-36); Bilirubin,Total 0.7 mg/dl (0.2-1.3); Calcium 9.5 mg/dl (8.4-10.2); Carbon Dioxide 29 mmol/L (22.0-30.0); Globulin 2.8 g/dL (1.3-3.2); Glucose 102 mg/dl (74-100); Total Protein,Serum 7.1 g/dl (6.3-8.2)
[2020-07-05 12:07] LABS: Activated Partial Thrombo Time 27.1 seconds (22.8-30.6); INR 0.93 (0.9-1.1)
== END ==
PROVIDERS: Visit Provider Family Medicine
DX: Z01.818 Encounter for other preprocedural examination (principal)
CPT/HCPCS: 36415; 71046; 80053; 81001; 83036; 85025; 85610; 85730

== ENCOUNTER → 2020-07-06 10:39 | Outpatient (CLI) | payer BC, SELFPAY ==
[2020-07-06 10:46] LABS: Adenovirus F 40/41, stool Not Detected (NotDetected); Astrovirus Not Detected (NotDetected); Campylobacter Not Detected (NotDetected); Clostridium Difficile A/B, PCR Not Detected (NotDetected); Cryptosporidium Not Detected (NotDetected); Cyclospora Cayetanesis Not Detected (NotDetected); Entamoeba histolytica Not Detected (NotDetected); Enteroaggregative E coli Not Detected (NotDetected); Enteropathogenic E coli Not Detected (NotDetected); Enterotoxigenic E coli Not Detected (NotDetected); Giardia lamblia Not Detected (NotDetected); Norovirus Not Detected (NotDetected); Plesimonas Shigalloides, PCR Not Detected (NotDetected); Rotavirus A Not Detected (NotDetected); Salmonella, PCR Not Detected (NotDetected); Sapovirus Not Detected (NotDetected); Shiga-like toxin E coli Not Detected (NotDetected); Shigella Enterovasive E coli Not Detected (NotDetected); Vibrio Cholerae Not Detected (NotDetected); Vibrio, PCR Not Detected (NotDetected); Yersinia Entercolitica, PCR Not Detected (NotDetected)
== END ==
PROVIDERS: Visit Provider Family Medicine
DX: R19.7 Diarrhea, unspecified (principal)
CPT/HCPCS: 87507

== ENCOUNTER → 2020-07-13 14:05 | Outpatient (CLI) | payer BC, SELFPAY ==
--- NOTE | 2020-07-13 14:20 | ECG_ITS ---
APPROVED REPORT Exam: Resting ECG HR:74 bpm ECG Measurements Heart Rate 74 AXES [place] 150 P 77 QRSd 82 QRS 54 QT 392 T 56 QTc 435 Conclusion Normal sinus rhythm Cannot rule out Anterior infarct, age undetermined Abnormal ECG Electronically signed by : Jacky Tadeo, 07/14/2020 21:18:49
== END ==
PROVIDERS: PCP Family Medicine; Visit Provider Family Medicine
DX: Z01.818 Encounter for other preprocedural examination (principal)
CPT/HCPCS: 93005

== ENCOUNTER 2020-07-17 18:00 | Emergency (ER) | payer BC, SELFPAY ==
[2020-07-17 18:01] VITALS: BP 152/94; PULSE 77; RESP 18; TEMP 36.7; O2SAT 96; BMI 25.0
--- NOTE | 2020-07-17 18:04 | PC.NURSE ---
Poison control contacted and advised of the pt ingestion of tylenol and benadryl. PC states for the tylenol that pt can develop wide QRS complex, agitation, tachycardia, seizures the management of this is supportive care for 6 hours, ekg, charcoal, post ingestion tylenol level 4 hours post ingestion. For the benadryl just to watch the pt for 6 hours for drowsiness and if ok after 6 hours is ok to DC home. If she still had symptoms after the 6 hours it was advised to admit pt for observation overnight. aware.
--- NOTE | 2020-07-17 18:04 | PC.NURSE ---
Ryan Fuller RN calling poison control
--- NOTE | 2020-07-17 18:12 | ECG_ITS ---
APPROVED REPORT Exam: Resting ECG HR:78 bpm ECG Measurements Heart Rate 78 AXES [place] 164 P 54 QRSd 82 QRS -21 QT 400 T 47 QTc 456 Conclusion Normal sinus rhythm Nonspecific ST abnormality Abnormal ECG Electronically signed by : Jacky Tadeo, 07/19/2020 08:51:04
--- NOTE | 2020-07-17 18:17 | XR_ITS ---
PROCEDURE INFORMATION: Exam: XR Chest Exam date and time: 07/17/2020 6:17 PM Age: 65 years old Clinical indication: Patient HX: PT took too much tylenol and benadryl. Dizzy; Additional info: Cough TECHNIQUE: Imaging protocol: XR of the chest. Views: 1 view. COMPARISON: CR XR CHEST 2V 07/05/2020 11:19 AM FINDINGS: Lungs: Ground-glass and patchy airspace opacities in the right lung base/right infrahilar region. Remainder of the lungs are clear. Pleural spaces: Unremarkable. No pleural effusion. No pneumothorax. Heart/Mediastinum: Unremarkable. No cardiomegaly. Bones/joints: No acute skeletal abnormality or aggressive osseous lesion. IMPRESSION: 1. Findings in the right lung base/right infrahilar region may be related to crowding of structures versus acute developing airspace disease. 2. No other acute thoracic pathology is identified. 3. Negative for acute thoracic pathology.
[2020-07-17 18:30] VITALS: BP 147/91; PULSE 83; RESP 15; O2SAT 100
[2020-07-17 18:34] LABS: Basophils # 0.1 K/mm3 (0-0.2); Basophils % 0.9 % (0.1-2.0); Eosinophils # 0.1 K/mm3 (0.0-0.4); Eosinophils % 0.8 % (0.1-12.0); Hematocrit 38.1 % (37.0-47.0); Hemoglobin 12.5 g/dL (12.2-16.2); Lymphocytes # 1.5 K/mm3 (0.7-4.5); Lymphocytes % 26.1 % (10-50); Mean Corpuscular HGB Conc 32.9 g/dL (31.8-35.4); Mean Corpuscular Hemoglobin 29.6 pg (27.0-31.2); Mean Corpuscular Volume 89.8 fl (81-99); Mean Platelet Volume 7.2 fl (7.4-10.4); Monocytes # 0.3 K/mm3 (0.1-1.0); Neutrophils # 3.8 K/mm3 (1.8-7.8); Neutrophils % 67.2 % (37.0-80.0); Platelet Count 219 K/mm3 (142-424); Red Blood Count 4.24 M/mm3 (4.20-5.40); Red Cell Distribution Width 13.4 % (11.5-17.5); White Blood Count 5.7 K/mm3 (4.8-10.8)
--- NOTE | 2020-07-17 18:39 | PC.NURSE ---
PT FINISHED HER CHARCOAL AT BEDSIDE
[2020-07-17 18:40] LABS: Acetaminophen 101 ug/ml (10-30); Alanine Aminotransferase 11 U/L (12-78); Albumin Level 4.3 g/dl (3.5-5.0); Albumin/Globulin Ratio 1.4 (1.1-1.8); Alkaline Phosphatase 90 U/L (38-126); Aspartate Amino Transferase 22 U/L (14-36); Bilirubin,Total 0.5 mg/dl (0.2-1.3); Blood Urea Nitrogen 7 mg/dl (7-17); Calcium 9.2 mg/dl (8.4-10.2); Carbon Dioxide 27 mmol/L (22.0-30.0); Chloride 100 mmol/L (98-107); Creatinine Clearance Estimated 63 mL/min (50-200); Estimated Glomerular Filt Rate 123 ml/min (>60); GFR (African American) 149 ML/MIN (>60); Globulin 3.1 g/dL (1.3-3.2); Glucose 90 mg/dl (74-100); Lipase 59 U/L (23-300); Sodium 135 mmol/L (136-145); Total Protein,Serum 7.4 g/dl (6.3-8.2)
[2020-07-17 18:42] LABS: Ethyl Alcohol < 10 mg/dl (0-10); Salicylate < 1.0 mg/dL (2.0-20.0)
[2020-07-17 18:53] LABS: VBG Base Excess 2.5 mmol/L (-2.4-2.3); VBG HCO3 26.8 mmol/L (23-30); VBG Oxygen Saturation 95.4 % (50-70); VBG PCO2 41.5 mmol/L (35-51); VBG PH 7.43 mmol/L (7.31-7.41); VBG PO2 73.8 mmol/L (28-40); VBG Total CO2 28.1 mmol/L (23-27)
[2020-07-17 19:00] VITALS: BP 139/81; PULSE 69; RESP 17; O2SAT 99
[2020-07-17 19:10] LABS: Thyroid Stimulating Hormone 2.59 uIU/mL (0.465-4.68)
--- NOTE | 2020-07-17 19:10 | HMH.EDGENADL ---
ED Disposition Condition on Discharge: Fair - Critical Care Critical Care Time: No <Cristopher Collins - Last Filed: 07/17/20 19:40> <Oumar Wilson - Last Filed: 07/17/20 22:04> Clinical Impression: Accidental acetaminophen overdose Qualifiers: Encounter type: initial encounter Qualified Code(s): T39.1X1A - Poisoning by 4-Aminophenol derivatives, accidental (unintentional), initial encounter Disposition: Home, Self-Care Instructions: DI for Acetaminophen Poisoning Additional Instructions: resume prev orders Referrals: Mik Marin MD [Primary Care Provider] - Attestation: On 07/17/20, the high probability of a clinically significant, sudden or life threatening deterioration of the following system(s) required my full and direct attention, intervention and personal management. The time I documented below is in addition to time spent performing reported procedures but includes the following listed in this critical care notation. Medical Decision Making - Medical Records Medical records reviewed: Yes: I reviewed the patient's medical records. - Kulwinder Inquiry Pt receiving controlled substance: No - Lab Data Result diagrams: 07/17/20 18:15 07/17/20 18:15 - Radiology Data #1 Image(s): Chest Image Reviewed: Yes I reviewed the patient's radiology results, Yes I reviewed the patient's radiology image, Yes I discussed the image results w/the radiologist - ECG Data Tracing #1 ECG initial impression date: 07/17/20 ECG initial impression time: 18:14 - Reevaluation(s) Time: 19:40 <Cristopher Collins - Last Filed: 07/17/20 19:40> - Lab Data Lab results reviewed: Yes: I reviewed the patient's lab results. Result diagrams: 07/17/20 18:15 07/17/20 18:15 <Oumar Wilson - Last Filed: 07/17/20 22:04> Vital Signs: 07/17/20 18:01 07/17/20 18:30 07/17/20 19:00 Temperature 98.0 F Temperature Source Oral Pulse Rate 83 69 Pulse Rate [Left Radial] 77 Respiratory Rate 18 15 17 Blood Pressure 147/91 H 139/81 Blood Pressure [Right Arm] 152/94 H Blood Pressure Mean [Right Arm] 113 Blood Pressure Source [Right Arm] Automatic Cuff Blood Pressure Position [Right Arm] Sitting 02 Sat by Pulse Oximetry 96 100 99 Oxygen Delivery Method Room Air - Lab Data Lab Results 07/17/20 18:15: WBC 5.7, RBC 4.24, Hgb 12.5, Hct 38.1, MCV 89.8, MCH 29.6, MCHC 32.9, RDW 13.4, Plt Count 219, MPV 7.2 L, Neut % (Auto) 67.2, Lymph % (Auto) 26.1, Yancey % (Auto) 5.0, Eos % (Auto) 0.8, Baso % (Auto) 0.9, Neut # (Auto) 3.8, Lymph # (Auto) 1.5, Yancey # (Auto) 0.3, Eos # (Auto) 0.1, Baso # (Auto) 0.1 07/17/20 18:15: Sodium 135 L, Potassium 3.0 L, Chloride 100, Carbon Dioxide 27, Anion Gap 11.0, BUN 7, Creatinine 0.50 L, Estimated Creat Clear 63, Estimated GFR 123, Est GFR ( Amer) 149, Glucose 90, Calcium 9.2, Total Bilirubin 0.5, AST 22, ALT 11 L, Alkaline Phosphatase 90, Total Protein 7.4, Albumin 4.3, Globulin 3.1, Albumin/Globulin Ratio 1.4, TSH 2.59, Salicylates < 1.0 L, Acetaminophen 101 H 07/17/20 18:15: Lipase 59 07/17/20 18:15: Plasma/Serum Alcohol < 10 07/17/20 18:17: VBG pH 7.43 H, VBG pCO2 41.5, VBG pO2 73.8 H, VBG HCO3 26.8, VBG Total CO2 28.1 H, VBG O2 Saturation 95.4 H, VBG Base Excess 2.5 H 07/17/20 19:19: Urine Color Yellow, Urine Appearance Clear, Urine pH 7.0, Ur Specific [place] 1.010, Urine Protein Negative, Urine Glucose (UA) Negative, Urine Ketones Negative, Urine Blood Negative, Urine Nitrate Negative, Urine Bilirubin Negative, Urine Urobilinogen 0.2, Ur Leukocyte Esterase Negative, Urine RBC None, Urine WBC 3-5, Ur Squamous Epith Cells None, Urine Bacteria None 07/17/20 19:19: Urine Opiates Screen Negative, Urine Methadone Screen Negative, Ur Barbituates Screen Negative, Ur Phencyclidine Scrn Negative, Ur Amphetamines Screen Negative, U Benzodiazepines Scrn Negative, Urine Cocaine Screen Negative, U Marijuana (THC) Screen Negative 07/17/20 20:52: Acetaminophen 57 H Orders (T
--- NOTE | 2020-07-17 19:16 | PC.NURSE ---
pt up to restroom with assistance from
[2020-07-17 19:25] LABS: Microscopic, Urine URINE MICROSCOPIC (MICROSCOPIC)
[2020-07-17 19:29] LABS: Appearance,Urine CLEAR (Clear); Bilirubin,Urine Negative (Negative); Blood, Urine Negative (Negative); Color,Urine YELLOW (Yellow); Glucose,Urine (UA) Negative (Negative); Ketones,Urine Negative (Negative); Leukocyte Esterase,Urine Negative (Negative); Nitrate,Urine Negative (Negative); Protein,Urine Negative (Negative); Urobilinogen,Urine 0.2 EU/dl (0.2)
[2020-07-17 19:38] LABS: Amphetamine/Metha Screen,Urine Negative ng/ml (<1000); Barbiturates Screen,Urine Negative ng/ml (<200)
[2020-07-17 19:39] LABS: Benzodiazepines Screen,Urine Negative ng/ml (<200)
[2020-07-17 19:40] LABS: Cocaine Screen,Urine Negative ng/ml (<300)
[2020-07-17 19:41] LABS: Methadone Screen,Urine Negative ng/ml (<300); Phencyclidine Screen,Urine Negative ng/ml (<25)
[2020-07-17 19:42] LABS: Opiate Screen,Urine Negative ng/ml (<300)
[2020-07-17 19:51] LABS: Cannabinoid Screen,Urine Negative ng/ml (<50)
--- NOTE | 2020-07-17 20:39 | PC.NURSE ---
Addendum entered by Flori Servin RN 07/17/20 22:05: Sigrid reported that is the level was < 150 and pt VS still stable, pt could be d/c. Original Note: s/w Sigrid at Poison Control, updated on pt labs and VS. She suggested a 4hr post ingestion Acetaminophen level (9pm) to be drawn.
[2020-07-17 21:14] LABS: Acetaminophen 57 ug/ml (10-30)
[2020-07-17 22:27] VITALS: BP 134/66; PULSE 80; RESP 18; TEMP 36.7; O2SAT 100
--- NOTE | 2020-07-17 23:06 | PC.NURSE ---
s/w Diya with Poison control and updated on 4hr post Acetaminophen level result.
== END 2020-07-17 22:30 | disposition home or self-care (01) ==
PROVIDERS: Emergency Medicine; Emergency Provider Emergency Medicine; PCP Family Medicine
DX: T39.1X1A Poisoning by 4-Aminophenol derivatives, accidental (unintentional), initial encounter (principal); E03.9 Hypothyroidism, unspecified; Z79.899 Other long term (current) drug therapy; Z88.0 Allergy status to penicillin; Z88.5 Allergy status to narcotic agent
CPT/HCPCS: 36415; 71045; 80053; 80305; 80329; 81001; 82803; 83690; 84443; 85025; 93005; 96365; 99283

== ENCOUNTER → 2020-09-09 10:29 | Outpatient (CLI) | payer BC, SELFPAY ==
[2020-09-09 11:13] LABS: Blood Urea Nitrogen 10 mg/dl (7-17); Estimated Glomerular Filt Rate 123 ml/min (>60); GFR (African American) 149 ML/MIN (>60)
== END ==
PROVIDERS: PCP Family Medicine; Visit Provider Family Medicine
DX: R41.3 Other amnesia (principal)
CPT/HCPCS: 36415; 82565; 84520

== ENCOUNTER → 2020-10-07 09:42 | Outpatient (CLI) | payer BC, SELFPAY ==
[2020-10-07 10:14] LABS: Blood Urea Nitrogen 8 mg/dl (7-17); Estimated Glomerular Filt Rate 123 ml/min (>60); GFR (African American) 149 ML/MIN (>60)
[2020-10-07 10:31] LABS: Uric Acid 4.8 mg/dl (2.5-6.2)
[2020-10-07 10:36] LABS: C-Reactive Protein 1.2 mg/L (0-4)
[2020-10-07 12:12] LABS: Erythrocyte Sedimentation Rate 35 mm/hr (0-30)
--- NOTE | 2020-10-07 13:01 | MR_ITS ---
PROCEDURE: MR HEAD/BRAIN WO/W CON CLINICAL INDICATION: MEMORY LOSS COMPARISON: No exams were available for comparison TECHNIQUE: Multiplanar, multisequence MRI brain performed with both pre- and post-contrast imaging. Contrast: 14 mL of ProHance. FINDINGS: No restricted diffusion is present to suggest an acute infarct.There is no space-occupying or enhancing mass lesion and no abnormal fluid collection.There is no abnormal post-contrast enhancement.There is no evidence of hemorrhage. Ventricles: The Ventricles are within noraml limits for size, configuration, and symmetry. Volume: There is mild parenchymal volume loss. Multiple periventricular and deep white matter signal changes are present bilaterally, which likely represent chronic microvascular ischemic diasease. There is extensive periventricular and subcortical confluent and non confluent T2 and FLAIR hyperintensities are noted, worse in the bilateral parieto-occipital subcortical white matter. There are some pericallosal T2 and FLAIR hyperintensities. No abnormal enhancement is noted. No focal enhancing lesions. There is minor asymmetry with prominence of the temporal horn of the right lateral ventricle. Mild atrophy of the medial temporal lobe is noted on the right. No abnormal signal intensity is noted. Osseous: Osseous structures are unremarkable. Sinuses: The paranasal sinuses are clear bilaterally. Mastoids: Mastoid air cells are clear. IMPRESSION: Extensive confluent non confluent periventricular and subcortical white matter T2 and FLAIR hyperintensities are noted bilaterally, worse in the posterior parietal/occipital lobes. The differential diagnosis would demyelinating and dysmyelinating disorders including multiple sclerosis, progressive reversible encephalopathy syndrome, other metabolic causes. Microvascular changes should be considered. No abnormal enhancement is noted. Close follow-up is recommended. Minor asymmetry of the right medial temporal lobe. No abnormal signal intensity or enhancement is noted Dictated by: Milana Boyer 10/07/2020 15:41 Milana Boyer in [place] 10/07/2020 15:41
[2020-10-08 08:16] LABS: RA Latex Turbid. <10.0 IU/mL (0.0-13.9)
[2020-10-09 16:08] LABS: Antinuclear Antibodies, IFA Negative (.)
[2020-10-16 14:02] LABS: Antinuclear Antibodies (ANA) NEGATIVE
== END ==
PROVIDERS: Nurse Practitioner Family; PCP Family Medicine; Visit Provider Family Medicine
DX: R41.3 Other amnesia (principal); H50.51 Esophoria; M19.90 Unspecified osteoarthritis, unspecified site
CPT/HCPCS: 36415; 70553; 82565; 84520; 84550; 85651; 86038; 86140; 86225; 86235; 86431; A9576

== ENCOUNTER → 2020-11-02 09:04 | Outpatient (CLI) | payer BC, SELFPAY ==
[2020-11-03 10:27] LABS: HIV Screen 4th Generation wRfx Non Reactive (Non Reactive); Rapid Plasma Reagin Ab Titer Non Reactive (NonRea<1:1)
== END ==
PROVIDERS: Visit Provider Specialist
DX: R41.3 Other amnesia (principal); R47.89 Other speech disturbances; Z11.4 Encounter for screening for human immunodeficiency virus [HIV]
CPT/HCPCS: 36415; 86592; 86618; 86703; 95816; 95819; G0432

== ENCOUNTER → 2021-03-24 08:17 | Outpatient (CLI) | payer BC, SELFPAY ==
--- NOTE | 2021-03-24 08:24 | MM_ITS ---
PROCEDURE INFORMATION: Exam: MG Bilateral Screening 3D Mammography Exam date and time: 03/24/2021 8:24 AM Age: 66 years old Clinical indication: Encounter for screening mammogram for malignant neoplasm of breast TECHNIQUE: Imaging protocol: Bilateral screening tomosynthesis and 2D mammography including computer-aided detection (CAD) when performed. COMPARISON: 1. MG MM DIG SCREENING MAMM BI W/CAD 03/22/2020 9:46 AM 2. MG MM DIG SCREENING MAMM BI W/CAD 03/05/2019 10:37 AM FINDINGS: MAMMOGRAPHY: Breast composition: The breast tissue is composed of scattered areas of fibroglandular density. Mass: None. Architectural distortion: None. Calcifications: No suspicious calcifications. Asymmetric density: None. Skin thickening: None. Axillary adenopathy: None. IMPRESSION: No mammographic evidence of malignancy. Annual screening is recommended unless otherwise clinically indicated. ASSESSMENT: BI-RADS Category 1: Negative
== END ==
PROVIDERS: PCP Family Medicine; Visit Provider Family Medicine
DX: Z12.31 Encounter for screening mammogram for malignant neoplasm of breast (principal)
CPT/HCPCS: 77063; 77067

== ENCOUNTER → 2021-05-30 10:32 | Outpatient (CLI) | payer MEDICARE, SELFPAY ==
--- NOTE | 2021-05-30 10:44 | XR_ITS ---
FINAL REPORT CLINICAL HISTORY: PAIN COMPARISON: April 18, 2020 FINDINGS: 3 views of the left foot were obtained. There is no acute fracture or dislocation. There is postoperative change involving the 1st metatarsal. There is fusion of the 2nd PIP joint with a wire present. There are mild degenerative changes. A plantar calcaneal spur is seen. IMPRESSION: Postoperative and degenerative changes. Reviewed, Interpreted and Dictated by Gordo Cheung III, MD Transcribed by Antoni Winters Authenticated by Gordo Cheung III, MD on 05/30/2021 01:03:[address] [facility]
--- NOTE | 2021-05-30 10:44 | XR_ITS ---
FINAL REPORT CLINICAL HISTORY: PAIN COMPARISON: April 18, 2020 FINDINGS: RIGHT FOOT: Three views of the right foot were obtained. There is no acute fracture or dislocation. There is postoperative change involving the distal 1st metatarsal. There is severe degenerative change of the 1st MTP joint. There is medial subluxation of the 1st proximal phalanx relative to the 1st metatarsal. There is a small plantar calcaneal spur. IMPRESSION: Postoperative and degenerative changes. Reviewed, Interpreted and Dictated by Gordo Cheung III, MD Transcribed by Antoni Winters Authenticated by Gordo Cheung III, MD on 05/30/2021 01:03:12 PM [facility]
== END ==
PROVIDERS: PCP Family Medicine; Visit Provider Podiatrist
DX: M19.071 Primary osteoarthritis, right ankle and foot (principal); M19.072 Primary osteoarthritis, left ankle and foot; M89.8X7 Other specified disorders of bone, ankle and foot; M79.671 Pain in right foot; M79.672 Pain in left foot
CPT/HCPCS: 73630

== ENCOUNTER 2021-08-03 10:00 | Outpatient (RCR) | payer BC, MEDICARE, SELFPAY ==
--- NOTE | 2021-02-22 11:24 | HMH.SLAPHASI ---
Speech & Language Evaluation Speech/Language Aphasia Evaluation Start: 02/22/21 09:09 Freq: once Status: Complete Protocol: Document 02/22/21 10:53 HIRAMGABRIELA (Rec: 02/22/21 11:24 ALYSSIA [id number]) Aphasia Assessment/Goals/Plan Assessment Date of Evaluation: 02/22/21 Evaluation Type Initial Certification Assessment/Problems Primary Progressive Aphasia Does Patient Qualify for Service Yes Qualify/Failure Comment Based on the results of today' s evaluation. Plan Pt will be seen # times/week 1 for # weeks 12 Anticipate reaching STG in # weeks 8 Anticipate reaching LTG in # weeks 12 Pt/Guardian verbally ack understanding Yes of dx/prognosis/goals Pt/Guardian verbally ack understanding Yes of/consent to tx prog G -code Required No STG-Verbal Expressive Language Sentence Completion 80 Word Naming 80 STG-Divergent Thinking Inductive Reasoning 80 Senior Living Goals Increase verbal expression skills to Yes communicate w/family & friends. Increase cognitive skills to communicate Yes w/family & friends Education Instructions provided Preliminary assessment results, POC, goals. Pt/Caregiver Able to Recall Information Unable to ind. 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 Pt/Caregiver Concerns Word finding difficulty was noted 6-12 months prior to the COVID-19 outbreak. Rehab Services Assessed Speech therapy Is this evaluation r/t stroke? No Language [place] Lang/Spoken in Home Moroccan Accent Affect Communication? No Education/Learning/Family Last School Grade Completed Master's in Music Education Therapy History Seen by other [facility] therapists No Other Specialists? No Aphasia Evaluations Communication Speech Intelligibility 100% to an unfamiliar speaker in a non-fixed context. Auditory Comprehension Yes: Following Directions Conversation Reading Comprehension Yes: Word Naming Verbal Expressive Language Yes: Repetition Abilities Word Level Naming No: Completing Sentences Naming Actions/Objects MANUEL Comment Sigrid accurately formulated 33% of sentences presented to her
== END 2021-08-03 10:05 | disposition home or self-care (01) ==
LOC: ST 10:00
PROVIDERS: PCP Family Medicine; Visit Provider Specialist
DX: R47.01 Aphasia (principal)
CPT/HCPCS: 92507; 92523

== ENCOUNTER → 2022-03-27 11:00 | Outpatient (CLI) | payer MEDICARE, SELFPAY ==
--- NOTE | 2022-03-27 11:07 | XR_ITS ---
FINAL REPORT CLINICAL HISTORY: knee pain COMPARISON: September 21, 2019 FINDINGS: LEFT KNEE 3 views of the left knee were obtained. There is no acute fracture or dislocation. Visualized joint spaces are normally aligned. There are moderate degenerative changes. Soft tissues are unremarkable. IMPRESSION: Moderate degenerative changes, stable. No acute bony abnormality. Reviewed, Interpreted and Dictated by Gordo Cheung III, MD Transcribed by Lulú Walsh Authenticated and [facility]
--- NOTE | 2022-03-27 11:07 | XR_ITS ---
FINAL REPORT CLINICAL HISTORY: knee pain FINDINGS: RIGHT KNEE Three views of the right knee reveal no evidence of fracture or dislocation. The bony alignment is normal. There are moderate degenerative changes. There is no evidence of joint effusion. There are multiple loose bodies measuring up to 22 mm. IMPRESSION: Moderate degenerative changes with multiple loose bodies as above. Reviewed, Interpreted and Dictated by Gordo Cheung III, MD Transcribed by Lulú Walsh Authenticated and [facility]
== END ==
PROVIDERS: PCP Family Medicine; Visit Provider Orthopaedic Surgery
DX: M25.561 Pain in right knee (principal); M25.562 Pain in left knee
CPT/HCPCS: 73562

== ENCOUNTER → 2022-04-18 15:23 | Outpatient (CLI) | payer MEDICARE, SELFPAY ==
--- NOTE | 2022-04-18 15:25 | MM_ITS ---
PROCEDURE INFORMATION: Exam: MG Bilateral Screening 3D Mammography Exam date and time: 04/18/2022 3:15 PM Age: 67 years old Clinical indication: Screening examination TECHNIQUE: Imaging protocol: Bilateral Screening tomosynthesis and 2D mammography including computer-aided detection (CAD) when performed. COMPARISON: 1. MG MM DIG SCREENING MAMM BI W/CAD 03/24/2021 8:25 AM 2. MG MM DIG SCREENING MAMM BI W/CAD 03/22/2020 9:46 AM FINDINGS: MAMMOGRAPHY: Breast composition: There are scattered areas of fibroglandular density. Mass: None. Architectural distortion: None. Calcifications: No suspicious calcifications. Asymmetric density: None. Skin thickening: None. Axillary adenopathy: None. IMPRESSION: No mammographic evidence of malignancy. Annual screening is recommended unless otherwise clinically indicated. ASSESSMENT: BI-RADS Category 1: Negative
== END ==
PROVIDERS: PCP Family Medicine; Visit Provider Family Medicine
DX: Z12.31 Encounter for screening mammogram for malignant neoplasm of breast (principal)
CPT/HCPCS: 77063; 77067

== ENCOUNTER → 2022-10-29 16:02 | Outpatient (CLI) | payer MEDICARE, SELFPAY | PROVIDERS: PCP Family Medicine; Visit Provider Nurse Practitioner Family | DX: R41.3 Other amnesia (principal); F02.80 Dementia in other diseases classified elsewhere, unspecified severity, without behavioral disturbance, psychotic disturbance, mood disturbance, and anxiety | CPT/HCPCS: 94762 ==

== ENCOUNTER 2024-02-22 15:34 | Emergency (ER) | payer MEDICARE, SELFPAY ==
[2024-02-22 15:35] VITALS: BP 139/82; PULSE 61; RESP 16; TEMP 36.4; O2SAT 98; BMI 20.1
--- NOTE | 2024-02-22 15:40 | ECG_ITS ---
APPROVED REPORT Exam: Resting ECG HR:63 bpm ECG Measurements Heart Rate 63 AXES NH 173 P 80 QRSd 98 QRS 11 QT 421 T 70 QTc 428 Conclusion SINUS RHYTHM LEFT VENTRICULAR HYPERTROPHY AND ST-T CHANGE [VOLTAGE CRITERIA PLUS ST/T ABNORMALITY] ABNORMAL ECG UNCONFIRMED REPORT Electronically signed by : MARI TRENT, 02/25/2024 06:42:33
--- NOTE | 2024-02-22 15:57 | CT_ITS ---
PROCEDURE INFORMATION: Exam: CT Pelvis Without Contrast, Skeleton Exam date and time: 02/22/2024 5:42 PM Age: 68 years old Clinical indication: Injury or trauma; Fall; Blunt trauma (contusions or hematomas); Bilateral; Pelvic region TECHNIQUE: Imaging protocol: Computed tomography of the pelvis without contrast. Exam focused on the skeleton. Total images: 905 Radiation optimization: All CT scans at this facility use at least one of these dose optimization techniques: automated exposure control; mA and/or kV adjustment per patient size (includes targeted exams where dose is matched to clinical indication); or iterative reconstruction. COMPARISON: CR XR HIP RT 2-3V W/PELVIS 04/11/2020 2:22 PM FINDINGS: Intestine: Occluded small bowel is unremarkable. Moderate colonic and rectal stool burden. Poorly assessed mild rectal wall thickening likely from incomplete distension. Vasculature: Mild atherosclerotic vascular disease. Reproductive: Status post hysterectomy. No pelvic mass. Bones/joints: Osteopenia. Status post right total hip arthroplasty. No hardware loosening. No acute fracture or joint dislocation. Pelvic ring is preserved. No widening of the pubic symphysis or sacroiliac joints. Mild degenerative change left hip. Benign-appearing 18 mm lucent bone lesion in the L5 vertebral body resembling hemangioma. Severe degenerative disc disease L4-L5 with grade 2 anterior spondylolisthesis and severe acquired spinal canal stenosis. Severe degenerate facet joint spondylosis L4-L5. Unremarkable sacrococcygeal alignment. Soft tissues: Unremarkable soft tissues. IMPRESSION: 1. No acute pelvic or hip fracture. 2. Severe degenerative disc disease and facet joint spondylosis at L4-L5 with grade 2 anterior spondylolisthesis and severe acquired spinal canal stenosis. 3. Status post right total hip arthroplasty. 4. Moderate colonic and rectal stool burden. 5. Nonspecific rectal wall thickening, likely from incomplete distension. Correlate for proctitis.
--- NOTE | 2024-02-22 15:57 | CT_ITS ---
PROCEDURE INFORMATION: Exam: CT Cervical Spine Without Contrast Exam date and time: 02/22/2024 5:40 PM Age: 68 years old Clinical indication: Injury or trauma; Fall; Blunt trauma; Additional info: Unwittnessed fall TECHNIQUE: Imaging protocol: Computed tomography of the cervical spine without contrast. Radiation optimization: All CT scans at this facility use at least one of these dose optimization techniques: automated exposure control; mA and/or kV adjustment per patient size (includes targeted exams where dose is matched to clinical indication); or iterative reconstruction. COMPARISON: CT HEAD/BRAIN WO CON 02/22/2024 5:38 PM FINDINGS: Bones: No acute fracture or traumatic subluxation. No spondylolisthesis. The atlantooccipital and atlantoaxial articulations are intact. Occipital condyles are intact. Facet joint alignments are maintained. Age-related degenerative disc disease. Multilevel degenerative changes of the cervical spine. Prevertebral and retropharyngeal spaces: No prevertebral soft tissue swelling. Lungs: Lung apices are normal. Soft tissues: Unremarkable. IMPRESSION: No acute fracture or traumatic subluxation.
--- NOTE | 2024-02-22 15:57 | CT_ITS ---
PROCEDURE INFORMATION: Exam: CT Head Without Contrast Exam date and time: 02/22/2024 5:38 PM Age: 68 years old Clinical indication: Injury or trauma; Fall; Blunt trauma (contusions or hematomas); Additional info: Unwitnessed fall TECHNIQUE: Imaging protocol: Computed tomography of the head without contrast. Radiation optimization: All CT scans at this facility use at least one of these dose optimization techniques: automated exposure control; mA and/or kV adjustment per patient size (includes targeted exams where dose is matched to clinical indication); or iterative reconstruction. COMPARISON: MR HEAD/BRAIN WO/W CON 10/07/2020 1:22 PM FINDINGS: Brain: Age-related involutional changes and chronic microvascular ischemic disease. No evidence for acute transcortical infarct. No mass effect or midline shift. No extra-axial collection. No acute intracranial hemorrhage. Basal cisterns are patent. Cerebral ventricles: No ventriculomegaly. Paranasal sinuses: Visualized sinuses are unremarkable. No fluid levels. Mastoid air cells: Visualized mastoid air cells are well aerated. Bones: Unremarkable. No acute fracture. Soft tissues: Unremarkable. IMPRESSION: No evidence for acute transcortical infarct, acute intracranial hemorrhage, or mass effect.
--- NOTE | 2024-02-22 15:58 | XR_ITS ---
PROCEDURE INFORMATION: Exam: XR Chest Exam date and time: 02/22/2024 5:41 PM Age: 68 years old Clinical indication: Injury or trauma; Fall; Blunt trauma (contusions or hematomas) TECHNIQUE: Imaging protocol: Radiologic exam of the chest. Views: 1 view. Total images: 1 COMPARISON: CR XR CHEST PORTABLE 07/17/2020 6:27 PM FINDINGS: Tubes, catheters and devices: EKG leads are present. Lungs: Unremarkable. No consolidation. No pulmonary vascular congestion or edema. Pleural spaces: Unremarkable. No pleural effusion. No pneumothorax. Heart/Mediastinum: Unremarkable. No cardiomegaly. No mediastinal widening or hilar enlargement. Bones/joints: Mild osteopenia. Partially visualized mild degenerative changes lower thoracic spine. Mild degenerative changes bilateral AC joints. IMPRESSION: No radiographically acute cardiopulmonary process.
[2024-02-22] MEDS: ACETAMINOPHEN 1,000MG/100ML VIAL 1000 MG IV (16:07)
[2024-02-22 16:09] LABS: Basophils % 0.7 % (0.1-2.0); Eosinophils % 0.7 % (0.1-12.0); Hematocrit 36.8 % (37.0-47.0); Hemoglobin 12.4 g/dL (12.2-16.2); Lymphocytes # 1.5 K/mm3 (0.7-4.5); Lymphocytes % 23.7 % (10-50); Mean Corpuscular HGB Conc 33.8 g/dL (31.8-35.4); Mean Corpuscular Hemoglobin 31.2 pg (27.0-31.2); Mean Corpuscular Volume 92.3 fl (81-99); Mean Platelet Volume 7.7 fl (7.4-10.4); Monocytes # 0.3 K/mm3 (0.1-1.0); Monocytes % 5.2 % (1.7-9.3); Neutrophils # 4.4 K/mm3 (1.8-7.8); Neutrophils % 69.6 % (37.0-80.0); Platelet Count 176 K/mm3 (142-424); Red Blood Count 3.98 M/mm3 (4.20-5.40); Red Cell Distribution Width 14.1 % (11.5-17.5); White Blood Count 6.3 K/mm3 (4.8-10.8)
[2024-02-22 16:10] LABS: Albumin Level 4.2 g/dl (3.5-5.0); Chloride 99 mmol/L (98-107); Potassium 3.6 mmoL/L (3.5-5.1); Sodium 132 mmol/L (136-145)
[2024-02-22 16:13] LABS: Alanine Aminotransferase 26 U/L (12-78); Albumin/Globulin Ratio 1.6 (1.1-1.8); Alkaline Phosphatase 60 U/L (38-126); Anion Gap 7.6 mEq/L (5-15); Aspartate Amino Transferase 33 U/L (14-36); Bilirubin,Total 0.6 mg/dl (0.2-1.3); Blood Urea Nitrogen 20 mg/dl (7-17); Carbon Dioxide 29 mmol/L (22.0-30.0); Creatinine Clearance Estimated 47 mL/min (50-200); Estimated Glomerular Filt Rate 71 ml/min (>60); GFR (African American) 86 ML/MIN (>60); Globulin 2.6 g/dL (1.3-3.2); Total Protein,Serum 6.8 g/dl (6.3-8.2)
[2024-02-22 16:14] LABS: Activated Partial Thrombo Time 24.2 seconds (22.8-30.6); Calcium 9.1 mg/dl (8.4-10.2); Glucose 106 mg/dl (74-100); INR 0.94 (0.9-1.1); Prothrombin Time 10.6 seconds (10.1-12.5)
--- NOTE | 2024-02-22 16:23 | ED_ITS ---
<Statement entered by David Downs MD - 02/22/24 23:08> I was consulted by the KIMBERLI, and we discussed the complexity of the problems being addressed. I approved the treatment and management plan for this patient's care in the emergency department, thus performing a substantive portion of the medical decision making. David Downs MD, MARIAH, FACEP Discharge Plan Disposition Patient Disposition: Home, Self-Care Condition: Good Prescriptions Prescriptions: No Action Slow Fe 142 mg (45 mg iron) tablet extended release 142 mg PO DAILY Probiotic (B. coagulans) 10 billion cell capsule,delayed release(DR/EC) PO magnesium gluconate [Mag-G] 27 mg magnesium (500 mg) tablet 27 mg PO DAILY calcium carb, citrate-vit D3 [Citracal-D3 Slow Release] 600 mg-12.5 mcg (500 unit) tablet extended release See Rx Instructions PO .COMPLEX Rx Instructions: PO one tab daily; cholecalciferol (vitamin D3) 50 mcg (2,000 unit) capsule 4,000 unit PO DAILY fluticasone propionate 50 mcg/actuation spray,suspension 2 spray intranasal DAILY Rx Instructions: administer into each nostril levothyroxine 88 mcg tablet 88 mcg PO DAILY multivitamin Tablet 1 tab PO DAILY liothyronine 5 mcg tablet PO Patient Comments: TAKE 1 TABLET BY MOUTH TWICE DAILY ON AN EMPTY STOMACH memantine 10 mg tablet 10 mg PO BID 90 Days Qty: 180 3RF rivastigmine 9.5 mg/24 hour patch 24 hour 9.5 mg transdermal DAILY Qty: 30 3RF Referrals Follow up/Referrals: Provider,Referral, [Referring] - See instructions Activity Restrictions/Add. Instructions Additional Instructions/Restrictions: Please follow-up with Dr. Marin. Also rajeev will have to be removed in 10 days from left side of scalp. If you have any problems or concerns please return to the ED or return to PCP. Clinical Impressions Clinical Impression: Fall, Expressive aphasia, Laceration, Acute pain of right hip Instructions Patient Instructions: DI for Chronic Pain -- Adult, How to Prevent Falls Print Language Print Language: Paragu[place] Discharge ED Provider: David Downs General Adult HPI General Chief complaint: Fall Stated complaint: FALL Time Seen by Provider: 02/22/24 15:49 Mode of Arrival: EMS Source of Information: EMS Limitations: No Limitations Description of Symptoms (Recalled from ER Triage Doc. by RN): pt presents to ED for unwitnessed fall at home. spouse reports that he was taking off his jacket from being outside. pt has expressive aphasia and is unable to give complete description of events. History of Present Illness HPI narrative: This is a 68-year-old female who presents to the ED via EMS after an unwitnessed fall while has been with outside fixing a dryer vent. She has expressive aphasia and has difficulty giving a description of what happened. She does complain of pain in her right hip when she lifts her right leg. She has no neck pain or back pain. Denies chest pain or shortness of breath at this time. No abdominal pain. is at bedside with events, medical answers. He also advised me that she had a recent MRI at [place] that showed microbleeds . He just wanted me to know since we are scanning her head. She also fell on Saturday and hit her head and hip on the toilet. Related Data Home Medications ?Medication ?Instructions ?Recorded ?Confirmed Bacillus coagulans 10 billion cell cell PO 10/03/20 01/09/24 capsule,delayed release (Probiotic (B. coagulans)) calcium ER 600 mg (as carb,cit)-D3 See Rx Instructions PO .COMPLEX 10/03/20 01/09/24 12.5 mcg (500 unit) tablet, ext.rel (Citracal-D3 Slow Release) ferrous sulfate 142 mg (45 mg 142 mg PO DAILY 10/03/20 01/09/24 iron) tablet,extended release (Slow Fe) magnesium gluconate 27 mg 27 mg PO DAILY 10/03/20 01/09/24 magnesium (500 mg) tablet (Mag-G) multivitamin 1 tab PO DAILY 10/27/20 01/09/24 cholecalciferol (vitamin D3) 50 4,000 unit PO DAILY 10/09/22 01/09/24 mcg (2,000 unit) capsule fluticasone propionate 50 2 spray intranasal DAILY 04/03/23 01/09/24 mcg/actuation nasal spray,suspension levothyroxine 88 mcg tablet 88 mcg PO DAILY 04/03/23 01/09/24 liothyronine 5 mcg tablet mcg PO 11/12/23 01/09/24 Previous Rx's ?Medication ?Instructions ?Recorded memantine 10 mg tablet 10 mg PO BID 90 days #180 tabs 01/15/24 rivastigmine 9.5 mg/24 hour 9.5 mg transdermal DAILY Memory 01/23/24 transdermal patch loss #30 ea Allergies Allergy/AdvReac Type Severity Reaction Status Date / Time meperidine (From DEMEROL) Allergy Intermediate I-HIVES Verified 01/09/24 11:18 midazolam (From VERSED) Allergy Intermediate I-HIVES Verified 01/09/24 11:18 Penicillins (PENICILLINS) Allergy Intermediate I-HIVES Verified 01/09/24 11:18 [facility] Disclaimer: The information contained in this section may have been updated after the patient was seen, as this information can be updated by other users. Medical History Osteoarthritis of left knee Osteoarthritis of right knee Surgical History History of hysterectomy History of hip replacement Social History Smoking Status: Never smoker alcohol intake: current alcohol intake frequency: holidays/special occasions only substance use type: denies use current occupational status: retired Travel in the last 8 weeks: Inside the [place] household members: spouse housing: house current occupational exposures/hazards: No caffeine: Yes Other Medical History Have you received the Flu Vaccine for this season: No Have you received the Pneumonia Vaccine: Yes ROS Obtained: Yes Systems reviewed as appropriate & no additional complaints except as documented Constitutional Constitutional: Reports as per HPI Physical Exam General General appearance: alert and other (Left side of head with blood and laceration) Head Head exam: normocephalic and other (Left-sided head laceration) Eye Eye exam: Present normal appearance, PERRL and EOMI ENT ENT exam: Present normal exam, normal oropharynx and mucous membranes moist Neck Neck exam: Present normal inspection and trachea midline Respiratory Respiratory exam: Present normal lung sounds bilaterally Cardiovascular Cardiovascular exam: Present regular rate, normal rhythm, normal heart sounds, +S1 and +S2 Abdominal Exam Abdominal exam: Present soft and normal bowel sounds Extremities Exam Extremities exam: Present normal inspection, full ROM and normal capillary refill Back Exam Back exam: Present normal inspection and other (Hip tenderness on right) Neurological Exam Neurological exam: Present alert and other (Patient has expressive aphasia/normal for her) Skin Skin exam: Present warm, dry and other (Laceration to left side of head) Medical Decision Making Medical Records Screening: Per USPSTF and CDC recommendations, given the prevalence of disease in our region, it is our hospital?s policy to screen for HIV and viral Hepatitis for all patients aged 18 and over and those with ongoing risk factors. Kulwinder Inquiry Pt receiving controlled substance: No Kulwinder was queried for this patient: No Vital Signs: 02/22/24 15:35 02/22/24 18:00 02/22/24 18:30 Temperature 97.6 F Temperature Source Oral Pulse Rate 70 68 Pulse Rate [Left Radial] 61 Respiratory Rate 16 18 20 Blood Pressure 144/81 H 144/77 H Blood Pressure [Right Arm] 139/82 Blood Pressure Mean [Right Arm] 101 02 Sat by Pulse Oximetry 98 98 100 Oxygen Delivery Method Room Air Room Air Room Air 02/22/24 19:00 02/22/24 19:30 Temperature Temperature Source Pulse Rate 65 75 Pulse Rate [Left Radial] Respiratory Rate 16 18 Blood Pressure 144/79 H 143/80 H Blood Pressure [Right Arm] Blood Pressure Mean [Right Arm] 02 Sat by Pulse Oximetry 100 100 Oxygen Delivery Method Room Air Lab Data Lab Results 02/22/24 15:41: WBC 6.3, RBC 3.98 L, Hgb 12.4, Hct 36.8 L, MCV 92.3, MCH 31.2, MCHC 33.8, RDW 14.1, Plt Count 176, MPV 7.7, Neut % (Auto) 69.6, Lymph % (Auto) 23.7, [facility] % (Auto) 5.2, Eos % (Auto) 0.7, Baso % (Auto) 0.7, Neut # (Auto) 4.4, Lymph # (Auto) 1.5, [facility] # (Auto) 0.3, Eos # (Auto) 0.0, Baso # (Auto) 0.0, PT 10.6, INR 0.94, APTT 24.2, Sodium 132 L, Potassium 3.6, Chloride 99, Carbon Dioxide 29, Anion Gap 7.6, BUN 20 H, Creatinine 0.80, Estimated Creat Clear 47, Estimated GFR 71, Est GFR ( Amer) 86, Glucose 106 H, Calcium 9.1, Total Bilirubin 0.6, AST 33, ALT 26, Alkaline Phosphatase 60, Troponin I < 0.01, Total Protein 6.8, Albumin 4.2, Globulin 2.6, Albumin/Globulin Ratio 1.6 02/22/24 16:09: Urine Color Yellow, Urine Appearance Clear, Urine pH 7.0, Ur Specific [place] 1.025, Urine Protein Trace, Urine Glucose (UA) Negative, Urine Ketones Negative, Urine Blood Negative, Urine Nitrate Negative, Urine Bilirubin Negative, Urine Urobilinogen 0.2, Ur Leukocyte Esterase Negative, Urine RBC None, Urine WBC 3-5, Ur Squamous Epith Cells 3-5 02/22/24 19:10: Troponin I < 0.01 02/22/24 15:41 02/22/24 15:41 Orders (Tests/Meds): ED MEDICATIONS Generic Name Dose Route Start Last Admin Trade Name Freq PRN Reason Stop Dose Admin Sodium Chloride 10 ml 02/22/24 15:57 Sodium Chloride 0.9% 10ml Flush Syringe IV 03/23/24 15:56 NEEDED PRN Maintain IV Site Discontinued Medications Generic Name Dose Route Start Last Admin Trade Name Freq PRN Reason Stop Dose Admin Acetaminophen 1,000 mg 02/22/24 15:57 02/22/24 16:07 Acetaminophen 1,000mg/100ml Vial IV 02/22/24 15:58 1,000 mg ONCE ONE Administration Azithromycin 500 mg/ Sodium 250 mls @ 250 mls/hr 02/22/24 19:30 02/22/24 19:37 Chloride IV 03/03/24 19:29 Not Given Q24H ROMAN Miscellaneous 1 each 02/22/24 19:30 02/22/24 19:37 Vancomycin Consult Request NOTAPPLIC 03/23/24 19:29 Not Given CONSULT PHARMACY ROMAN ORDERS Category Date Time Status CT bony pelvis Stat Cat Scan 02/22/24 15:[address] cervical spine wo con Stat Cat Scan 02/22/24 15:[address] head/brain wo con Stat Cat Scan 02/22/24 15:57 Completed XR chest portable Stat Exams 02/22/24 15:58 Completed Activated Partial Thrombo Time Stat Lab 02/22/24 15:41 Completed Complete Blood Count Auto Diff Stat Lab 02/22/24 15:41 Completed Comprehensive Metabolic Panel Stat Lab 02/22/24 15:41 Completed HIV (1&2) Antibody Rapid Stat Lab 02/22/24 15:49 Ordered Hep C Ab with Reflex to RNA Stat Lab 02/22/24 15:49 Ordered Prothrombin Time INR Stat Lab 02/22/24 15:41 Completed Troponin I Q3H Lab 02/22/24 19:10 Completed Troponin I Q3H Lab 02/22/24 22:00 Ordered Troponin I Stat Lab 02/22/24 15:41 Completed UA [Urinalysis and Microscopic] Stat Lab 02/22/24 16:09 Completed Medical Decision Narrative: Insert review patient is a 68-year-old female presenting to the emergency department for evaluation of unwitnessed fall prior to arrival. Patient was brought in via EMS with a laceration to the left side of her head. Patient has expressive aphasia so has difficulty telling us what is going on. She is on no blood thinners. Patient is hemodynamically stable and nontoxic-appearing upon arrival, afebrile. Differential diagnosis includes trauma fractures, hip fracture, syncopal episode among others. Workup will be conducted with hematologic labs, specific imaging including CT of head, neck and pelvis along with chest x-ray to rule out pneumonia as a possible reason for fall. Initial inventions include crystalloid bolus, analgesics. Initial workup reviewed by me hematologic labs are remarkable for nothing acute. Patient's urine and labs are unremarkable. Imaging informally interpreted by me and remarkable for no acute fractures or bony abnormalities. Formal imaging read remarkable for no acute bony abnormalities or pneumonia. Upon repeat evaluation patient's pain is improved, appears better perfused. Discussed with . Also discussed with that she needs to follow-up with her PCP. It is likely that this was a fall over something rather than a syncopal episode as patient fell last week as well over the seat in the bathroom. Critical Care Critical Care Time Critical Care Time: No
[2024-02-22 16:40] LABS: Microscopic, Urine URINE MICROSCOPIC (MICROSCOPIC)
--- NOTE | 2024-02-22 16:41 | PC.NURSE ---
cleaned lac to expose for view
[2024-02-22 16:45] LABS: Troponin I < 0.01 ng/ml (0.00-0.034)
[2024-02-22 16:46] LABS: Appearance,Urine CLEAR (Clear); Bilirubin,Urine Negative (Negative); Blood, Urine Negative (Negative); Color,Urine YELLOW (Yellow); Glucose,Urine (UA) Negative (Negative); Ketones,Urine Negative (Negative); Leukocyte Esterase,Urine Negative (Negative); Nitrate,Urine Negative (Negative); Protein,Urine TRACE (Negative); Specific Gravity, Urine 1.025 (1.005-1.030); Urobilinogen,Urine 0.2 EU/dl (0.2)
[2024-02-22 18:00] VITALS: BP 144/81; PULSE 70; RESP 18; O2SAT 98
[2024-02-22 18:30] VITALS: BP 144/77; PULSE 68; RESP 20; O2SAT 100
[2024-02-22 19:00] VITALS: BP 144/79; PULSE 65; RESP 16; O2SAT 100
[2024-02-22 19:30] VITALS: BP 143/80; PULSE 75; RESP 18; O2SAT 100
[2024-02-22 19:52] LABS: Troponin I < 0.01 ng/ml (0.00-0.034)
[2024-02-22 20:39] VITALS: BP 152/89; PULSE 80; RESP 14; TEMP 36.6; O2SAT 99
--- NOTE | 2024-02-22 20:41 | PC.NURSE ---
IV removed. Catheter tip intact. Bleeding stopped prior to departure.
== END 2024-02-22 20:58 | disposition home or self-care (01) ==
PROVIDERS: Nurse Practitioner; Emergency Provider Student in an Organized Health Care Education/Training Program; PCP Family Medicine
DX: S01.01XA Laceration without foreign body of scalp, initial encounter (principal); M25.551 Pain in right hip; R47.01 Aphasia; W18.30XA Fall on same level, unspecified, initial encounter; Y93.89 Activity, other specified; Y92.008 Other place in unspecified non-institutional (private) residence as the place of occurrence of the external cause
CPT/HCPCS: 70450; 71045; 72125; 72192; 80053; 81001; 84484; 85025; 85610; 85730; 93005; 96374; 99285; J0131

== ENCOUNTER 2024-05-09 16:27 | Outpatient (CLI) | payer MEDICARE, SELFPAY | END 2024-05-09 23:59 | disposition home or self-care (01) | LOC: LAB.DROPOF 05-12 16:10 | PROVIDERS: PCP Nurse Practitioner Family; Visit Provider Nurse Practitioner Family | DX: R35.0 Frequency of micturition (principal); M54.50 Low back pain, unspecified | CPT/HCPCS: 87086 ==

== ENCOUNTER 2024-06-23 13:07 | Emergency (ER) | payer MEDICARE, SELFPAY ==
--- NOTE | 2024-06-23 13:17 | ECG_ITS ---
APPROVED REPORT Exam: Resting ECG HR:72 bpm ECG Measurements Heart Rate 72 AXES HI 174 P 83 QRSd 100 QRS 52 QT 404 T 35 QTc 429 Conclusion SINUS RHYTHM INCOMPLETE RIGHT BUNDLE BRANCH BLOCK [90+ ms QRS DURATION, TERMINAL R IN V1/V2, 40+ ms S IN I/aVL/V4/V5/V6] SEPTAL MYOCARDIAL INFARCTION , OF INDETERMINATE AGE [40+ ms Q WAVE IN V1/V2] No STEMI Electronically signed by : NICO CHU, 06/24/2024 06:24:35
--- NOTE | 2024-06-23 13:22 | XR_ITS ---
FINAL REPORT CLINICAL HISTORY: fall / r shoulder pain / decreased ROM COMPARISON: None FINDINGS: Four views of the right shoulder show a comminuted fracture of the humeral head and neck involving the greater and lesser tuberosities. There is up to 4 mm of displacement. There is no evidence of dislocation. The acromioclavicular joint demonstrates mild degenerative change. IMPRESSION: Mildly displaced comminuted fracture humeral head and neck. Reviewed, Interpreted and Dictated by Idris Aj MD Transcribed by Fatou Joseph Authenticated and [facility]
--- NOTE | 2024-06-23 13:22 | XR_ITS ---
FINAL REPORT CLINICAL HISTORY: syncope COMPARISON: 02/22/2024 FINDINGS: No acute pulmonary opacity is present. There is no evidence of effusion or pneumothorax. Mediastinum is unremarkable. Heart size is normal. IMPRESSION: No acute abnormality. Reviewed, Interpreted and Dictated by Idris Aj MD Transcribed by Fatou Joseph Authenticated and [facility]
[2024-06-23 13:23] VITALS: BP 143/71; PULSE 68; RESP 18; TEMP 36.6; O2SAT 99; BMI 20.3
--- NOTE | 2024-06-23 13:26 | CT_ITS ---
FINAL REPORT TECHNIQUE: Noncontrast exam This study was performed with techniques to keep radiation doses as low as reasonably achievable, (ALARA). Individualized dose reduction techniques using automated exposure control or adjustment of mA and/or kV according to the patient''s size were employed. CLINICAL HISTORY: Fall / AMS COMPARISON: 02/22/2024 FINDINGS: Moderate atrophy and chronic ischemic white matter changes are noted. No cortical edema is present. There is no mass or hemorrhage. Ventricles are normal. Bone windows show no skull fracture or obvious obstructive lesion. IMPRESSION: 1. No acute intracranial abnormality or obvious mass. 2. Atrophy and chronic ischemic white matter changes as above. Reviewed, Interpreted and Dictated by Idris Aj MD Transcribed by Machelle Anderson Authenticated and [facility]
--- NOTE | 2024-06-23 13:26 | CT_ITS ---
FINAL REPORT TECHNIQUE: Thin section axial CT with sagittal reconstruction without contrast This study was performed with techniques to keep radiation doses as low as reasonably achievable, (ALARA). Individualized dose reduction techniques using automated exposure control or adjustment of mA and/or kV according to the patient''s size were employed. CLINICAL HISTORY: Neck pain after a fall COMPARISON: 02/22/2024 FINDINGS: No fracture is seen. Alignment is normal. There is moderate multilevel degenerative disc disease and facet arthropathy. There is bony neuroforaminal narrowing at C4-5, C5-6, and C6-7. IMPRESSION: Degenerative changes with no acute bony abnormality. Reviewed, Interpreted and Dictated by Idris Aj MD Transcribed by Machelle Anderson Authenticated and [facility]
[2024-06-23 13:30] VITALS: BP 123/73; PULSE 62; RESP 25; O2SAT 95
--- NOTE | 2024-06-23 13:39 | ED_ITS ---
<Statement entered by Leeann Ramos DO - 06/23/24 15:26> I was consulted by the KIMBERLI, and we discussed the complexity of the problems being addressed. I approved the treatment and management plan for this patient's care in the emergency department, thus performing a substantive portion of the medical decision making. Leeann Ramos DO Discharge Plan Disposition Patient Disposition: Home, Self-Care Prescriptions Prescriptions: No Action Slow Fe 142 mg (45 mg iron) tablet extended release 142 mg PO DAILY Probiotic (B. coagulans) 10 billion cell capsule,delayed release(DR/EC) PO magnesium gluconate [Mag-G] 27 mg magnesium (500 mg) tablet 27 mg PO DAILY calcium carb, citrate-vit D3 [Citracal-D3 Slow Release] 600 mg-12.5 mcg (500 unit) tablet extended release See Rx Instructions PO .COMPLEX Rx Instructions: PO one tab daily; cholecalciferol (vitamin D3) 50 mcg (2,000 unit) capsule 4,000 unit PO DAILY levothyroxine 88 mcg tablet 88 mcg PO DAILY fluticasone propionate 50 mcg/actuation spray,suspension 2 spray intranasal DAILY PRN Rx Instructions: administer into each nostril lactulose [Constulose] 10 gram/15 mL solution 15 ml PO DAILY Patient Comments: TAKE 15ML BY MOUTH ONCE DAILY NEEDED multivitamin Tablet 1 tab PO DAILY liothyronine 5 mcg tablet 5 mcg PO BID Patient Comments: TAKE 1 TABLET BY MOUTH TWICE DAILY ON AN EMPTY STOMACH memantine 10 mg tablet 10 mg PO BID 90 Days Qty: 180 3RF rivastigmine 9.5 mg/24 hour patch 24 hour 9.5 mg transdermal DAILY Qty: 30 3RF Referrals Follow up/Referrals: Mik Marin MD [Primary Care Provider] - See instructions Brandon Lainez DO [Staff Physician] - See instructions Activity Restrictions/Add. Instructions Additional Instructions/Restrictions: Today, you were evaluated in the emergency department and diagnosed with a right humeral head fracture. Please wear the sling as directed until you are able to see Ortho. Please call orthopedics for follow-up. You may take acetaminophen (Tylenol) 500 mg tablets, 1000 mg twice daily for the first 48 hours and then decrease dose to 500 mg. Please follow-up. Please return to the ED for worsening of condition. Clinical Impressions Clinical Impression: Fracture of humeral head Qualifiers: Encounter type: initial encounter Fracture type: closed Laterality: right Q ualified Code(s): S42.291A - Other displaced fracture of upper end of right humerus, initial encounter for closed fracture Fall Qualifiers: Encounter type: initial encounter Qualified Code(s): W19.XXXA - Unspecified fall, initial encounter Instructions Patient Instructions: DI for Shoulder Pain Print Language Print Language: Icelandic Discharge ED Provider: Leeann Ramos General Adult HPI <Kati Beasley APRN - Last Filed: 06/23/24 16:25> General Chief complaint: Extremity Injury, Upper Stated complaint: AO Fall 1200 right shoulder pain fanting Time Seen by Provider: 06/23/24 13:12 Mode of Arrival: Wheelchair Source of Information: Patient Description of Symptoms (Recalled from ER Triage Doc. by RN): Pt presents from home with spouse for evaluation of shoulder injury affter falling from the top of the stairs when she was walking up. Per spouse pt was with her caretaker resort, pt did not have loc and did not hit her head. Pt is not on blood thinners. Pt has swelling to her right shoulder and pain with movement History of Present Illness HPI narrative: patient is a 69-year-old female PMHx dementia, hypothyroidism, expressive aphasia who presents to the ED with her spouse after tripping on the top stair and falling forward and landing on her right shoulder. Patient's says that after she tripped she was altered for approximately 5 minutes. Related Data Home Medications ?Medication ?Instructions ?Recorded ?Confirmed Bacillus coagulans 10 billion cell cell PO 10/03/20 06/17/24 capsule,delayed release (Probiotic (B. coagulans)) calcium ER 600 mg (as carb,cit)-D3 See Rx Instructions PO .COMPLEX 10/03/20 06/17/24 12.5 mcg (500 unit) tablet, ext.rel (Citracal-D3 Slow Release) ferrous sulfate 142 mg (45 mg 142 mg PO DAILY 10/03/20 06/17/24 iron) tablet,extended release (Slow Fe) magnesium gluconate 27 mg 27 mg PO DAILY 10/03/20 06/17/24 magnesium (500 mg) tablet (Mag-G) multivitamin 1 tab PO DAILY 10/27/20 06/17/24 cholecalciferol (vitamin D3) 50 4,000 unit PO DAILY 10/09/22 06/17/24 mcg (2,000 unit) capsule levothyroxine 88 mcg tablet 88 mcg PO DAILY 04/03/23 06/17/24 fluticasone propionate 50 2 spray intranasal DAILY PRN 03/04/24 06/17/24 mcg/actuation nasal spray,suspension lactulose 10 gram/15 mL oral 15 ml PO DAILY 03/04/24 06/17/24 solution (Constulose) liothyronine 5 mcg tablet 5 mcg PO BID 03/04/24 06/17/24 Previous Rx's ?Medication ?Instructions ?Recorded memantine 10 mg tablet 10 mg PO BID 90 days #180 tabs 03/24/24 rivastigmine 9.5 mg/24 hour 9.5 mg transdermal DAILY Memory 03/24/24 transdermal patch loss #30 ea Allergies Allergy/AdvReac Type Severity Reaction Status Date / Time meperidine (From DEMEROL) Allergy Intermediate I-HIVES Verified 06/17/24 10:23 midazolam (From VERSED) Allergy Intermediate I-HIVES Verified 06/17/24 10:23 Penicillins (PENICILLINS) Allergy Intermediate I-HIVES Verified 06/17/24 10:23 PFSH <Kati Beasley APRN - Last Filed: 06/23/24 16:25> PFS Disclaimer: The information contained in this section may have been updated after the patient was seen, as this information can be updated by other users. Medical History Dementia Osteoarthritis of left knee Osteoarthritis of right knee Surgical History History of hysterectomy History of hip replacement Social History Smoking Status: Never smoker alcohol intake: current alcohol intake frequency: holidays/special occasions only substance use type: denies use current occupational status: retired Travel in the last 8 weeks: Inside the [place] household members: spouse housing: house current occupational exposures/hazards: No caffeine: Yes Other Medical History Have you received the Flu Vaccine for this season: No Have you received the Pneumonia Vaccine: Yes <Kati Beasley APRN - Last Filed: 06/23/24 16:25> ROS Obtained: Yes Systems reviewed as appropriate & no additional complaints except as documented Physical Exam <Kati Beasley APRN - Last Filed: 06/23/24 16:25> General General appearance: alert and in no apparent distress Head Head exam: atraumatic and normocephalic Eye Eye exam: Present normal appearance and PERRL ENT ENT exam: Present normal exam Neck Neck exam: Present normal inspection Chest Chest inspection: Present normal inspection and symmetric chest wall rise; Absent tenderness Respiratory Respiratory exam: Present normal lung sounds bilaterally Cardiovascular Cardiovascular exam: Present regular rate Abdominal Exam Abdominal exam: Present soft and normal bowel sounds; Absent tenderness Extremities Exam Extremities exam: Present other (Right shoulder anterior and lateral tenderness, decreased ROM, difficulty with abduction, sensation and pulses intact) Back Exam Back exam: Present normal inspection and full ROM Neurological Exam Neurological exam: Present alert and oriented X3 Psychiatric Psychiatric exam: Present normal affect and normal mood Skin Skin exam: Present warm and dry Medical Decision Making <Kati Beasley APRN - Last Filed: 06/23/24 16:25> Medical Records Screening: Per USPSTF and CDC recommendations, given the prevalence of disease in our region, it is our hospital?s policy to screen for HIV and viral Hepatitis for all patients aged 18 and over and those with ongoing risk factors. [place] Inquiry Pt receiving controlled substance: No Vital Signs: 06/23/24 13:23 06/23/24 13:30 06/23/24 14:00 Temperature 97.9 F Temperature Source Oral Pulse Rate 62 65 Pulse Rate [Right] 68 Respiratory Rate 18 25 H 20 Blood Pressure 123/73 142/77 H Blood Pressure [Right Arm] 143/71 H Blood Pressure Mean [Right Arm] 95 Blood Pressure Source Blood Pressure Source [Right Arm] Automatic Cuff Blood Pressure Position Blood Pressure Position [Right Arm] Sitting 02 Sat by Pulse Oximetry 99 95 99 Oxygen Delivery Method Room Air Room Air Room Air 06/23/24 15:40 Temperature 98.0 F Temperature Source Pulse Rate 83 Pulse Rate [Right] Respiratory Rate 18 Blood Pressure 146/79 H Blood Pressure [Right Arm] Blood Pressure Mean [Right Arm] Blood Pressure Source Automatic Cuff Blood Pressure Source [Right Arm] Blood Pressure Position Sitting Blood Pressure Position [Right Arm] 02 Sat by Pulse Oximetry Oxygen Delivery Method Room Air Lab Data Lab Results 06/23/24 13:23: WBC 5.5, RBC 4.05 L, Hgb 12.7, Hct 37.0, MCV 91.4, MCH 31.4 H, MCHC 34.3, RDW 12.9, Plt Count 185, MPV 10.1, Neut % (Auto) 74.4, Lymph % (Auto) 18.2, [place] % (Auto) 5.8, Eos % (Auto) 0.9, Baso % (Auto) 0.5, Neut # (Auto) 4.1, Lymph # (Auto) 1.0, [place] # (Auto) 0.3, Eos # (Auto) 0.1, Baso # (Auto) 0.0, S odium 130 L, Potassium 3.8, Chloride 93 L, Carbon Dioxide 28, Anion Gap 12.8, BUN 15, Creatinine 0.70, Estimated Creat Clear 48, Estimated GFR 82, Est GFR ( Amer) 100, Glucose 114 H, Calcium 9.1, Total Bilirubin 0.9, AST 27, ALT 22, Alkaline Phosphatase 63, Troponin I < 0.01, NT-Pro-B Natriuret Pep 367 H, Total Protein 7.3, Albumin 4.2, Globulin 3.1, Albumin/Globulin Ratio 1.4 06/23/24 13:23 06/23/24 13:23 Orders (Tests/Meds): ED MEDICATIONS Discontinued Medications Generic Name Dose Route Start Last Admin Trade Name Freq PRN Reason Stop Dose Admin Acetaminophen 1,000 mg 06/23/24 15:07 06/23/24 15:15 Acetaminophen 500mg Tab PO 06/23/24 15:08 1,000 mg ONCE ONE Administration ORDERS Category Date Time Status CT cervical spine wo con Stat Cat Scan 06/23/24 13:[address] head/brain wo con Stat Cat Scan 06/23/24 13:26 Completed CXR --portable [XR chest portable] Stat Exams 06/23/24 13:22 Completed Shoulder XR right miminum 2 views [XR shoulder RT min Exams 06/23/24 13:22 Completed 2V] Stat BNP [NT Pro Brain Natriuretic Pep.] Stat Lab 06/23/24 13:23 Completed CBC w/Auto Diff [Complete Blood Count Auto Diff] Stat Lab 06/23/24 13:23 Completed CMP [Comprehensive Metabolic Panel] Stat Lab 06/23/24 13:23 Completed Trop I [Troponin I] Stat Lab 06/23/24 13:23 Completed Medical Decision Narrative: In summary, patient is a 69-year-old female PMHx dementia, hypothyroidism, expressive aphasia who presents to the ED with her spouse after tripping on the top stair and falling forward and landing on her right shoulder. Patient's says that after she tripped she was altered for approximately 5 minutes. He states that she did not hit her head and did not lose consciousness that he is aware of. He states that over the past month patient has had increased difficulty with her gait being unsteady. He states after the event patient was ambulatory and recalled the events that occurred prior to the fall. Patient denies any symptoms prior to the fall. Patient denies any additional symptoms besides right shoulder pain and decreased ROM of right shoulder. Denies fever, chills, headache, visual disturbances, chest pain, shortness of breath, abdominal pain, nausea, vomiting, dysuria. Upon initial evaluation patient is alert and oriented to situation, affect is flat. states that patient appears to be at her baseline other than the right shoulder pain. She is hemodynamically stable. Her physical exam is remarkable for anterior and lateral right shoulder pain, decreased ROM, difficulty with abduction of right upper extremity. Patient symptomatically managed with acetaminophen 1000 mg PO for pain. Discussed with patient and spouse we will proceed with CT of the head, CT of the C-spine, chest x-ray and lab. CBC unremarkable for any leukocytosis, stable H&H. CMP remarkable for sodium 130, BMP 367, troponin < 0.01. BNP 367. CT of the head unremarkable for any acute intracranial process, final read noted to have atrophy and chronic ischemic white matter changes. Final read of the CT C-spine remarkable for degenerative changes with no acute bony abnormality. Right shoulder x-ray remarkable for a mildly displaced comminuted fracture humeral head and neck. Patient was placed in a cuff and collar sling. I advised him to call orthopedics office today and make a follow-up appointment. We discussed pain management, patient is already taking NSAIDs so I discussed the use of acetaminophen. Patient's spouse will be with her at home and assist with her care. We discussed return precautions to the ED and patient spouse verbalized understanding. <Leeann Ramos, DO - Last Filed: 06/23/24 14:51> Vital Signs: 06/23/24 13:23 06/23/24 13:30 06/23/24 14:00 Temperature 97.9 F Temperature Source Oral Pulse Rate 62 65 Pulse Rate [Right] 68 Respiratory Rate 18 25 H 20 Blood Pressure 123/73 142/77 H Blood Pressure [Right Arm] 143/71 H Blood Pressure Mean [Right Arm] 95 Blood Pressure Source Blood Pressure Source [Right Arm] Automatic Cuff Blood Pressure Position Blood Pressure Position [Right Arm] Sitting 02 Sat by Pulse Oximetry 99 95 99 Oxygen Delivery Method Room Air Room Air Room Air 06/23/24 15:40 Temperature 98.0 F Temperature Source Pulse Rate 83 Pulse Rate [Right] Respiratory Rate 18 Blood Pressure 146/79 H Blood Pressure [Right Arm] Blood Pressure Mean [Right Arm] Blood Pressure Source Automatic Cuff Blood Pressure Source [Right Arm] Blood Pressure Position Sitting Blood Pressure Position [Right Arm] 02 Sat by Pulse Oximetry Oxygen Delivery Method Room Air Lab Data Lab Results 06/23/24 13:23: WBC 5.5, RBC 4.05 L, Hgb 12.7, Hct 37.0, MCV 91.4, MCH 31.4 H, MCHC 34.3, RDW 12.9, Plt Count 185, MPV 10.1, Neut % (Auto) 74.4, Lymph % (Auto) 18.2, [place] % (Auto) 5.8, Eos % (Auto) 0.9, Baso % (Auto) 0.5, Neut # (Auto) 4.1, Lymph # (Auto) 1.0, [place] # (Auto) 0.3, Eos # (Auto) 0.1, Baso # (Auto) 0.0, S odium 130 L, Potassium 3.8, Chloride 93 L, Carbon Dioxide 28, Anion Gap 12.8, BUN 15, Creatinine 0.70, Estimated Creat Clear 48, Estimated GFR 82, Est GFR ( Amer) 100, Glucose 114 H, Calcium 9.1, Total Bilirubin 0.9, AST 27, ALT 22, Alkaline Phosphatase 63, Troponin I < 0.01, NT-Pro-B Natriuret Pep 367 H, Total Protein 7.3, Albumin 4.2, Globulin 3.1, Albumin/Globulin Ratio 1.4 Orders (Tests/Meds): ED MEDICATIONS Discontinued Medications Generic Name Dose Route Start Last Admin Trade Name Freq PRN Reason Stop Dose Admin Acetaminophen 1,000 mg 06/23/24 15:07 06/23/24 15:15 Acetaminophen 500mg Tab PO 06/23/24 15:08 1,000 mg ONCE ONE Administration ORDERS Category Date Time Status CT cervical spine wo con Stat Cat Scan 06/23/24 13:[address] head/brain wo con Stat Cat Scan 06/23/24 13:26 Completed CXR --portable [XR chest portable] Stat Exams 06/23/24 13:22 Completed Shoulder XR right miminum 2 views [XR shoulder RT min Exams 06/23/24 13:22 Completed 2V] Stat BNP [NT Pro Brain Natriuretic Pep.] Stat Lab 06/23/24 13:23 Completed CBC w/Auto Diff [Complete Blood Count Auto Diff] Stat Lab 06/23/24 13:23 Completed CMP [Comprehensive Metabolic Panel] Stat Lab 06/23/24 13:23 Completed Trop I [Troponin I] Stat Lab 06/23/24 13:23 Completed ECG Data Tracing #1: I reviewed this ECG and interpreted as documented below: Normal sinus rhythm with a ventricular rate of 72 bpm. Incomplete right bundle branch block. No acute ST changes concerning for ischemia. ECG initial impression date: 06/23/24 ECG initial impression time: 13:21 Critical Care <Kati Beasley APRN - Last Filed: 06/23/24 16:25> Critical Care Time Critical Care Time: No
[2024-06-23 13:44] LABS: Alanine Aminotransferase 22 U/L (12-78); Albumin Level 4.2 g/dl (3.5-5.0); Albumin/Globulin Ratio 1.4 (1.1-1.8); Alkaline Phosphatase 63 U/L (38-126); Anion Gap 12.8 mEq/L (5-15); Aspartate Amino Transferase 27 U/L (14-36); Bilirubin,Total 0.9 mg/dl (0.2-1.3); Blood Urea Nitrogen 15 mg/dl (7-17); Calcium 9.1 mg/dl (8.4-10.2); Carbon Dioxide 28 mmol/L (22.0-30.0); Chloride 93 mmol/L (98-107); Creatinine Clearance Estimated 48 mL/min (50-200); Estimated Glomerular Filt Rate 82 ml/min (>60); GFR (African American) 100 ML/MIN (>60); Globulin 3.1 g/dL (1.3-3.2); Glucose 114 mg/dl (74-100); Potassium 3.8 mmoL/L (3.5-5.1); Sodium 130 mmol/L (136-145); Total Protein,Serum 7.3 g/dl (6.3-8.2)
[2024-06-23 13:56] LABS: NT Pro Brain Natriuretic Pep. 367 pg/mL (0-125)
[2024-06-23 14:00] VITALS: BP 142/77; PULSE 65; RESP 20; O2SAT 99
[2024-06-23 14:00] LABS: Troponin I < 0.01 ng/ml (0.00-0.034)
[2024-06-23 14:17] LABS: Basophils % 0.5 % (0.1-2.0); Eosinophils # 0.1 K/mm3 (0.0-0.4); Eosinophils % 0.9 % (0.1-12.0); Hemoglobin 12.7 g/dL (12.2-16.2); Lymphocytes % 18.2 % (10-50); Mean Corpuscular HGB Conc 34.3 g/dL (31.8-35.4); Mean Corpuscular Hemoglobin 31.4 pg (27.0-31.2); Mean Corpuscular Volume 91.4 fl (81-99); Mean Platelet Volume 10.1 fl (7.4-10.4); Monocytes # 0.3 K/mm3 (0.1-1.0); Monocytes % 5.8 % (1.7-9.3); Neutrophils # 4.1 K/mm3 (1.8-7.8); Neutrophils % 74.4 % (37.0-80.0); Platelet Count 185 K/mm3 (142-424); Red Blood Count 4.05 M/mm3 (4.20-5.40); Red Cell Distribution Width 12.9 % (11.5-17.5); White Blood Count 5.5 K/mm3 (4.8-10.8)
[2024-06-23] MEDS: ACETAMINOPHEN 500MG TAB 1000 MG PO (15:15)
[2024-06-23 15:40] VITALS: BP 146/79; PULSE 83; RESP 18; TEMP 36.7; O2SAT 100
== END 2024-06-23 15:41 | disposition home or self-care (01) ==
PROVIDERS: Nurse Practitioner; Emergency Provider Emergency Medicine; PCP Family Medicine
DX: S42.291A Other displaced fracture of upper end of right humerus, initial encounter for closed fracture (principal); M25.511 Pain in right shoulder; R41.82 Altered mental status, unspecified; F03.90 Unspecified dementia, unspecified severity, without behavioral disturbance, psychotic disturbance, mood disturbance, and anxiety; W10.8XXA Fall (on) (from) other stairs and steps, initial encounter; Y93.89 Activity, other specified; Y92.008 Other place in unspecified non-institutional (private) residence as the place of occurrence of the external cause
CPT/HCPCS: 70450; 71045; 72125; 73030; 80053; 83880; 84484; 85025; 93005; 99284

== ENCOUNTER 2024-06-24 11:16 | Emergency (ER) | payer MEDICARE, SELFPAY ==
[2024-06-24 11:25] VITALS: BP 119/71; PULSE 72; RESP 20; TEMP 36.6; O2SAT 100; BMI 20.3
--- NOTE | 2024-06-24 11:25 | CT_ITS ---
FINAL REPORT TECHNIQUE: Noncontrast exam This study was performed with techniques to keep radiation doses as low as reasonably achievable, (ALARA). Individualized dose reduction techniques using automated exposure control or adjustment of mA and/or kV according to the patient''s size were employed. CLINICAL HISTORY: possible stroke ams, syncope COMPARISON: 06/23/2024 FINDINGS: Moderate atrophy and advanced chronic ischemic white matter changes are noted. No cortical edema is present. There is no mass or hemorrhage. Ventricles are normal. Bone windows show no skull fracture or obvious obstructive lesion. IMPRESSION: 1. No acute intracranial abnormality or obvious mass. 2. Atrophy and chronic ischemic white matter changes as above. Reviewed, Interpreted and Dictated by Idris Aj MD Transcribed by Machelle Anderson Authenticated and [facility]
--- NOTE | 2024-06-24 11:25 | ECG_ITS ---
APPROVED REPORT Exam: Resting ECG HR:64 bpm ECG Measurements Heart Rate 64 AXES VA 179 P 81 QRSd 102 QRS 41 QT 397 T 238 QTc 406 Conclusion SINUS RHYTHM No STEMI Electronically signed by : WANG BARR, 06/24/2024 15:38:32
--- NOTE | 2024-06-24 11:25 | CT_ITS ---
FINAL REPORT CLINICAL HISTORY: possible stroke FINDINGS: CTA HEAD TECHNIQUE: Thin section axial CT with contrast with 3D MIP reconstruction This study was performed with techniques to keep radiation doses as low as reasonably achievable, (ALARA). Individualized dose reduction techniques using automated exposure control or adjustment of mA and/or kV according to the patient''s size were employed. FINDINGS: No aneurysm is seen. Major intracranial vessels are patent without significant stenosis. . IMPRESSION: Unremarkable Reviewed, Interpreted and Dictated by Idris Aj MD Transcribed by Machelle Anderson Authenticated and [facility]
--- NOTE | 2024-06-24 11:25 | CT_ITS ---
FINAL REPORT CLINICAL HISTORY: possible stroke FINDINGS: CT NECK ANGIO, WITHOUT AND WITH CONTRAST TECHNIQUE: Thin section axial CT with contrast with multiplanar 3D MIP reconstruction. This study was performed with techniques to keep radiation doses as low as reasonably achievable, (ALARA). Individualized dose reduction techniques using automated exposure control or adjustment of mA and/or kV according to the patient's size were employed. NASCET criteria and technique was utilized during interpretation. FINDINGS: Aortic arch: Arch shows no significant narrowing. Great vessel origins are widely patent. Right carotid: No significant stenosis is seen of the cervical common or internal carotid artery. Left carotid: No significant stenosis is seen of the cervical common or internal carotid artery. Vertebrals: The vertebral arteries are codominant. No significant stenosis is present. IMPRESSION: No significant stenosis of the cervical carotid arteries Reviewed, Interpreted and Dictated by Idris Aj MD Transcribed by Machelle Anderson Authenticated and [facility]
--- NOTE | 2024-06-24 11:25 | CT_ITS ---
FINAL REPORT TECHNIQUE: Thin section axial CT with contrast with multiplanar reconstruction This study was performed with techniques to keep radiation doses as low as reasonably achievable, (ALARA). Individualized dose reduction techniques using automated exposure control or adjustment of mA and/or kV according to the patient''s size were employed. CLINICAL HISTORY: syncopal episode ams FINDINGS: Pulmonary vessels enhance in normal fashion without evidence of embolism. Thoracic aorta shows no dissection or aneurysm. No pulmonary mass or infiltrate is present. There is no evidence of hemothorax or pneumothorax. There is no significant pleural effusion. There is no significant pericardial effusion. No mediastinal or hilar adenopathy is present. No rib fractures identified. Incidental note is made of a mildly displaced proximal right humeral fracture. IMPRESSION: 1. No evidence of pulmonary embolism. 2. No acute pulmonary abnormality. Reviewed, Interpreted and Dictated by Idris Aj MD Transcribed by Machelle Anderson Authenticated and [facility]
--- NOTE | 2024-06-24 11:27 | CT_ITS ---
FINAL REPORT TECHNIQUE: IV contrast enhanced exam This study was performed with techniques to keep radiation doses as low as reasonably achievable, (ALARA). Individualized dose reduction techniques using automated exposure control or adjustment of mA and/or kV according to the patient''s size were employed. CLINICAL HISTORY: abd pain, syncope, AMS FINDINGS: Abdomen: No acute density is seen within the lung bases. The gallbladder is unremarkable. There is a small cyst in the spleen. The remaining solid abdominal organs are unremarkable. No bowel obstruction is present. There is no free air. No fluid collection is seen. There is no adenopathy. There is moderate fecal impaction. Pelvis: The appendix is not visualized. There is fluid-filled small bowel in a pattern compatible with ileus. Patient is status post hysterectomy. There is no free fluid. No pelvic mass is seen. There is grade 2 spondylolisthesis of L4 on 5. IMPRESSION: No acute findings. Reviewed, Interpreted and Dictated by Idris Aj MD Transcribed by Cesilia Renteria Authenticated and [facility]
--- NOTE | 2024-06-24 11:28 | HMH.EDGENADL ---
Discharge Plan Disposition Patient Disposition: Home, Self-Care Condition: Good Prescriptions Prescriptions: No Action Slow Fe 142 mg (45 mg iron) tablet extended release 142 mg PO DAILY Probiotic (B. coagulans) 10 billion cell capsule,delayed release(DR/EC) PO magnesium gluconate [Mag-G] 27 mg magnesium (500 mg) tablet 27 mg PO DAILY calcium carb, citrate-vit D3 [Citracal-D3 Slow Release] 600 mg-12.5 mcg (500 unit) tablet extended release See Rx Instructions PO .COMPLEX Rx Instructions: PO one tab daily; cholecalciferol (vitamin D3) 50 mcg (2,000 unit) capsule 4,000 unit PO DAILY levothyroxine 88 mcg tablet 88 mcg PO DAILY fluticasone propionate 50 mcg/actuation spray,suspension 2 spray intranasal DAILY PRN Rx Instructions: administer into each nostril lactulose [Constulose] 10 gram/15 mL solution 15 ml PO DAILY Patient Comments: TAKE 15ML BY MOUTH ONCE DAILY NEEDED multivitamin Tablet 1 tab PO DAILY liothyronine 5 mcg tablet 5 mcg PO BID Patient Comments: TAKE 1 TABLET BY MOUTH TWICE DAILY ON AN EMPTY STOMACH memantine 10 mg tablet 10 mg PO BID 90 Days Qty: 180 3RF rivastigmine 9.5 mg/24 hour patch 24 hour 9.5 mg transdermal DAILY Qty: 30 3RF Referrals Follow up/Referrals: Mik Marin MD [Primary Care Provider] - See instructions Johnathan Miller MD [Staff Physician] - See instructions Paul Abad MD [Staff Physician] - See instructions Activity Restrictions/Add. Instructions Additional Instructions/Restrictions: You were evaluated in the emergency department today. At this time, your workup is very reassuring with the exception of mild hyponatremia, or low sodium. Please follow-up closely outpatient with your primary care provider for her other evaluation and management of this. Your symptoms of altered mental status that are transient and concern for possible loss of consciousness/fainting are concerning, so I recommend very close follow-up with cardiology as well as with your neurologist. Return to the emergency department for new or worsening symptoms. Clinical Impressions Clinical Impression: Transient alteration of awareness, Hyponatremia Instructions Patient Instructions: DI for Syncope in Adults (Fainting), DI for Altered Mental Status Print Language Print Language: Sami Discharge ED Provider: Leeann Rmaos General Adult HPI General Chief complaint: Altered Mental Status Stated complaint: Altered Mental Status Time Seen by Provider: 06/24/24 11:25 History of Present Illness HPI narrative: This patient is a 69-year-old female with a history of dementia and hypothyroidism presenting to the emergency department for evaluation with concern for altered mental status. According to the patient's , the patient was evaluated here yesterday after a fall with right shoulder injury. She had a fracture of the right humerus was placed in cuff and collar, and she was discharged with plan to follow-up with orthopedics today. He notes that last night, she was in her usual state of health and they went and ate dinner out together. Today, they had breakfast together and then [facility] [employer] [facility] activities. Around 10 10 in the morning this morning while at [facility], she developed acute alteration of mental status. He notes that it seemed like she was asleep, and he thought maybe she was and out of consciousness. She was very slow to respond, noncommunicative and altered. He is not sure if she fainted or what may have happened. Patient does not contribute to history given altered mental status. She is awake and follows commands, but she has word finding difficulty and is unable to communicate what is going on. He notes that at baseline, she is very communicative but is not ever alert to time at all. He states she is complained of some abdominal discomfort lately, but typically that is before she has a bowel movement, so he attributed to that. No other acute concerns or complaints as of late. Patient arrives by EMS who noted that she was hemodynamically stable en route with a normal fingerstick blood glucose. Related Data Home Medications ?Medication ?Instructions ?Recorded ?Confirmed Bacillus coagulans 10 billion cell cell PO 10/03/20 06/17/24 capsule,delayed release (Probiotic (B. coagulans)) calcium ER 600 mg (as carb,cit)-D3 See Rx Instructions PO .COMPLEX 10/03/20 06/17/24 12.5 mcg (500 unit) tablet, ext.rel (Citracal-D3 Slow Release) ferrous sulfate 142 mg (45 mg 142 mg PO DAILY 10/03/20 06/17/24 iron) tablet,extended release (Slow Fe) magnesium gluconate 27 mg 27 mg PO DAILY 10/03/20 06/17/24 magnesium (500 mg) tablet (Mag-G) multivitamin 1 tab PO DAILY 10/27/20 06/17/24 cholecalciferol (vitamin D3) 50 4,000 unit PO DAILY 10/09/22 06/17/24 mcg (2,000 unit) capsule levothyroxine 88 mcg tablet 88 mcg PO DAILY 04/03/23 06/17/24 fluticasone propionate 50 2 spray intranasal DAILY PRN 03/04/24 06/17/24 mcg/actuation nasal spray,suspension lactulose 10 gram/15 mL oral 15 ml PO DAILY 03/04/24 06/17/24 solution (Constulose) liothyronine 5 mcg tablet 5 mcg PO BID 03/04/24 06/17/24 Previous Rx's ?Medication ?Instructions ?Recorded memantine 10 mg tablet 10 mg PO BID 90 days #180 tabs 03/24/24 rivastigmine 9.5 mg/24 hour 9.5 mg transdermal DAILY Memory 03/24/24 transdermal patch loss #30 ea Allergies Allergy/AdvReac Type Severity Reaction Status Date / Time meperidine (From DEMEROL) Allergy Intermediate I-HIVES Verified 06/17/24 10:23 midazolam (From VERSED) Allergy Intermediate I-HIVES Verified 06/17/24 10:23 Penicillins (PENICILLINS) Allergy Intermediate I-HIVES Verified 06/17/24 10:23 [facility] Disclaimer: The information contained in this section may have been updated after the patient was seen, as this information can be updated by other users. Medical History Dementia Osteoarthritis of left knee Osteoarthritis of right knee Surgical History History of hysterectomy History of hip replacement Social History Smoking Status: Never smoker alcohol intake: current alcohol intake frequency: holidays/special occasions only substance use type: denies use current occupational status: retired Travel in the last 8 weeks: Inside the [place] household members: spouse housing: house current occupational exposures/hazards: No caffeine: Yes Other Medical History Have you received the Flu Vaccine for this season: No Have you received the Pneumonia Vaccine: Yes ROS Obtained: Yes All systems reviewed & no additional complaints except as documented Physical Exam General General appearance: alert and in no apparent distress Head Head exam: atraumatic and normocephalic Eye Eye exam: Present normal appearance, PERRL and EOMI ENT ENT exam: Present normal exam, normal oropharynx, mucous membranes moist and normal external ear exam Neck Neck exam: Present normal inspection, full ROM and trachea midline; Absent tenderness Chest Chest inspection: Present normal inspection and symmetric chest wall rise; Absent tenderness Respiratory Respiratory exam: Present normal lung sounds bilaterally; Absent respiratory distress, wheezes, stridor or accessory muscle use Cardiovascular Cardiovascular exam: Present regular rate and normal rhythm Abdominal Exam Abdominal exam: Present soft; Absent distention, tenderness or guarding Extremities Exam Extremities exam: Present tenderness, normal capillary refill and other (Limited range of motion of the right upper extremity secondary to known proximal humerus fracture. Neurovascularly intact distally.); Absent full ROM or edema Back Exam Back exam: Present normal inspection and full ROM; Absent tenderness Neurological Exam Neurological exam: Present alert, CN II-XII intact and other (Significant word finding difficulty. Patient is oriented to person but not place or time.); Absent oriented X3 or motor sensory deficit Psychiatric Psychiatric exam: Present flat affect Skin Skin exam: Present warm and dry Medical Decision Making Medical Records Medical records reviewed: Yes I reviewed the patient's medical records. Screening: Per USPSTF and CDC recommendations, given the prevalence of disease in our region, it is our hospital?s policy to screen for HIV and viral Hepatitis for all patients aged 18 and over and those with ongoing risk factors. [place] Inquiry Pt receiving controlled substance: No Vital Signs: 06/24/24 11:25 06/24/24 11:30 06/24/24 12:16 Temperature 97.8 F Temperature Source Oral Pulse Rate 87 75 Pulse Rate [Left Radial] 72 Respiratory Rate 20 18 17 Blood Pressure 124/65 134/74 Blood Pressure [Right Arm] 119/71 Blood Pressure Mean 86 94 Blood Pressure Mean [Right Arm] 87 02 Sat by Pulse Oximetry 100 97 100 Oxygen Delivery Method Room Air 06/24/24 12:30 06/24/24 13:00 Temperature Temperature Source Pulse Rate 76 75 Pulse Rate [Left Radial] Respiratory Rate 21 11 L Blood Pressure 137/76 134/74 Blood Pressure [Right Arm] Blood Pressure Mean 88 89 Blood Pressure Mean [Right Arm] 02 Sat by Pulse Oximetry 99 99 Oxygen Delivery Method Lab Data Lab results reviewed: Yes I reviewed the patient's lab results. Lab Results 06/24/24 11:05: Urine Opiates Screen Negative, Urine Methadone Screen Negative, Ur Barbituates Screen Negative, Ur Phencyclidine Scrn Negative, Ur Amphetamines Screen Negative, U Benzodiazepines Scrn Negative, Urine Cocaine Screen Negative, U Marijuana (THC) Screen Negative 06/24/24 11:22: WBC 8.0 D, RBC 3.69 L, Hgb 11.5 L, Hct 33.6 L, MCV 91.1, MCH 31.2, MCHC 34.2, RDW 12.8, Plt Count 161, MPV 10.0, Neut % (Auto) 82.8 H, Lymph % (Auto) 9.2 L, [place] % (Auto) 7.7, Eos % (Auto) 0.1, Baso % (Auto) 0.1, Neut # (Auto) 6.6, Lymph # (Auto) 0.7, [place] # (Auto) 0.6, Eos # (Auto) 0.0, Baso # (Auto) 0.0, PT 10.7, INR 0.95, APTT 26.3, Sodium 130 L, Potassium 3.6, Chloride 95 L, Carbon Dioxide 29, Anion Gap 9.6, BUN 16, Creatinine 0.60, Estimated Creat Clear 48, Estimated GFR 99, Est GFR ( Amer) 119, Glucose 108 H, Calcium 9.0, Total Bilirubin 1.2, AST 31, ALT 20, Alkaline Phosphatase 51, Troponin I < 0.01, Total Protein 6.6, Albumin 3.9, Globulin 2.7, Albumin/Globulin Ratio 1.4, Triglycerides 98, Cholesterol 172, LDL Cholesterol Direct 66.01 L, VLDL Cholesterol 20, HDL Cholesterol 79 H, Cholesterol/HDL Ratio 2.2, TSH 0.88, Thyroxine (T4) 10.3, Plasma/Serum Alcohol < 10 06/24/24 11:26: VBG pH 7.39, VBG pCO2 48.8, VBG pO2 48.6 H, VBG HCO3 28.6, VBG Total CO2 30.1 H, VBG O2 Saturation 85.4 H, VBG Base Excess 3.6 H, VBG Lactic Acid 1.9 06/24/24 12:05: Urine Color Yellow, Urine Appearance Clear, Urine pH 7.5, Ur Specific [place] 1.010, Urine Protein Negative, Urine Glucose (UA) Negative, Urine Ketones Negative, Urine Blood Negative, Urine Nitrate Negative, Urine Bilirubin Negative, Urine Urobilinogen 0.2, Ur Leukocyte Esterase Negative, Urine RBC None, Urine WBC None, Ur Squamous Epith Cells 3-5 06/24/24 13:29: Troponin I < 0.01 06/24/24 11:22 06/24/24 11:22 Orders (Tests/Meds): ED MEDICATIONS Generic Name Dose Route Start Last Admin Trade Name Freq PRN Reason Stop Dose Admin Sodium Chloride 10 ml 06/24/24 11:25 Sodium Chloride 0.9% 10ml Flush Syringe IV 07/24/24 11:24 NEEDED PRN Maintain IV Site Discontinued Medications Generic Name Dose Route Start Last Admin Trade Name Freq PRN Reason Stop Dose Admin Sodium Chloride 1,000 mls @ 999 mls/hr 06/24/24 12:10 06/24/24 12:17 Sod Chlor 0.9% 1000ml Bag IV 06/24/24 13:10 999 mls/hr .Q1H1M ONE Administration Iopamidol 160 ml 06/24/24 11:39 06/24/24 11:40 Iopamidol-370 (76%);100ml Bottle IV 06/24/24 11:40 160 ml ONCE ONE Administration Sodium Chloride 10 ml 06/24/24 11:39 06/24/24 11:40 Sodium Chloride 0.9% 10ml Syr (Rad Only) IV 06/24/24 11:40 10 ml ONCE ONE Administration Sodium Chloride 50 ml 06/24/24 11:39 06/24/24 11:40 0.9 % Sodium Chloride 50 Ml Vial IV 06/24/24 11:40 50 ml ONCE ONE Administration Sodium Chloride 50 ml 06/24/24 11:40 06/24/24 11:40 0.9 % Sodium Chloride 50 Ml Vial IV 06/24/24 11:41 50 ml ONCE ONE Administration ORDERS Category Date Time Status CT abdomen pelvis w con Stat Cat Scan 06/24/24 11:[address] angio chest PE protocol Stat Cat Scan 06/24/24 11:[address] angio head Stat Cat Scan 06/24/24 11:[address] angio neck Stat Cat Scan 06/24/24 11:[address] head/brain wo con Stat Cat Scan 06/24/24 11:25 Completed Activated Partial Thrombo Time Stat Lab 06/24/24 11:22 Completed Complete Blood Count Auto Diff Stat Lab 06/24/24 11:22 Completed Comprehensive Metabolic Panel Stat Lab 06/24/24 11:22 Completed Drug Screen,Urine Stat Lab 06/24/24 11:05 Completed Ethyl Alcohol Stat Lab 06/24/24 11:22 Completed Lipid Panel Stat Lab 06/24/24 11:22 Completed Prothrombin Time INR Stat Lab 06/24/24 11:22 Completed T4 (Thyroxine) Stat Lab 06/24/24 11:22 Completed TSH [Thyroid Stimulating Hormone] Stat Lab 06/24/24 11:22 Completed Troponin I Q3H Lab 06/24/24 13:29 Completed Troponin I Q3H Lab 06/24/24 17:30 Ordered Troponin I Stat Lab 06/24/24 11:22 Completed Urinalysis and Microscopic Stat Lab 06/24/24 12:05 Completed VBG [Venous Blood Gas] Stat RT 06/24/24 11:26 Completed ECG Data Tracing #1: I reviewed this ECG and interpreted as documented below: Normal sinus rhythm with a ventricular of [address] changes concerning for STEMI. Normal intervals. ECG initial impression date: 06/24/24 ECG initial impression time: 11:30 Medical Decision Narrative: In summary, this patient is a 69-year-old female presenting to the Emergency Department for evaluation of acute alteration mental status that started at 1010 this morning [facility] [employer]. She has significant word finding difficulty and was reportedly in and out of consciousness. Differential diagnoses considered include but are not limited to CVA, intracranial hemorrhage, urinary tract infection, metabolic encephalopathy, hypothyroid. Ruling out the most morbid conditions drove assessment. It should be noted patient's history includes dementia and hypothyroidism which may not be at goal therapy. This complicates all aspects of care by increasing patient's risk for morbidity. I reviewed patient's past medical records and noted patient here yesterday for right shoulder injury after mechanical ground-level fall. Basic labs were obtained that demonstrated mild hyponatremia but otherwise reassuring. CT scans of the head and C-spine were obtained which were negative for any acute traumatic injury. She had a right proximal humerus fracture for which she was discharged with plan for follow-up with orthopedics.. On exam, the patient is lying in bed in no acute distress. She is alert, follows commands, and does not have any obvious focal deficits with the exception of significant word finding difficulty and alteration of mental status. LKW 1010am today, NIHSS 4 for AMS and word finding issues. She does have a baseline history of dementia, but her reports that she is typically communicative. Given acute onset of symptoms, patient was taken emergently to CT scan for stroke protocol. Given her syncope, poor historian, and some reported complaints of recent abdominal pain, I elected to obtain CTA PE protocol and CT abdomen pelvis with IV contrast as well. Workup included broad lab evaluation to evaluate for infectious, metabolic, cardiac derangements as well. EKG obtained is reassuring with no acute STEMI. I independently interpreted CT scan prior to the radiologist read and noted no large intracranial hemorrhage, no large vessel occlusion, no large PE, no intra-abdominal infection. Please see their read for final interpretation. Labs were obtained that demonstrated reassuring CBC with no significant leukocytosis, she does have mild anemia but no indication for transfusion. Chemistry demonstrates continued hyponatremia with a sodium of 130. On reassessment, patient had resolution of symptoms. She is now speaking normally and at her neurologic baseline according to her . She is still disoriented, but he states this is normal for her with her dementia. He notes that she seems to be back to normal as of 12 PM. I considered tPA/thrombolytics, however given that she has had resolution of symptoms I do not feel this is indicated as is likely to do more harm than good. I considered thrombectomy, however patient has no large vessel occlusion. I confirmed this via [employer] kiara after power check with [facility]. Remainder of scans are reassuring, labs are reassuring with the exception of mild hyponatremia. Troponins x 2 are negative. Patient had no recurrence of symptoms while in the emergency department and had normal vitals on cardiac telemetry. I considered admission for continued monitoring with concern for possible syncopal episodes versus TIA versus other causes, however after discussion family would prefer to go home with close follow-up with PCP. I did call and discussed the case with Dr. Marin who will help arrange close outpatient follow-up. Strict return precautions were given and the patient was discharged after all questions were answered. Critical Care Critical Care Time Critical Care Time: Yes Attestation: On 06/24/24, the high probability of a clinically significant, sudden or life threatening deterioration of the following system(s) required my full and direct attention, intervention and personal management. The time I documented below is in addition to time spent performing reported procedures but includes the following listed in this critical care notation. Total Time Total Critical Care Time: 45
[2024-06-24 11:30] VITALS: BP 124/65; PULSE 87; RESP 18; O2SAT 97
[2024-06-24 11:35] LABS: Basophils % 0.1 % (0.1-2.0); Eosinophils % 0.1 % (0.1-12.0); Hematocrit 33.6 % (37.0-47.0); Hemoglobin 11.5 g/dL (12.2-16.2); Lymphocytes # 0.7 K/mm3 (0.7-4.5); Lymphocytes % 9.2 % (10-50); Mean Corpuscular HGB Conc 34.2 g/dL (31.8-35.4); Mean Corpuscular Hemoglobin 31.2 pg (27.0-31.2); Mean Corpuscular Volume 91.1 fl (81-99); Monocytes # 0.6 K/mm3 (0.1-1.0); Monocytes % 7.7 % (1.7-9.3); Neutrophils # 6.6 K/mm3 (1.8-7.8); Neutrophils % 82.8 % (37.0-80.0); Platelet Count 161 K/mm3 (142-424); Red Blood Count 3.69 M/mm3 (4.20-5.40); Red Cell Distribution Width 12.8 % (11.5-17.5)
[2024-06-24] MEDS: IOPAMIDOL-370 (76%);100ML BOTTLE 160 ML IV (11:40)
[2024-06-24] MEDS: SODIUM CHLORIDE 0.9% 10ML SYR (RAD ONLY) 10 ML IV (11:40)
[2024-06-24] MEDS: 0.9 % SODIUM CHLORIDE 50 ML VIAL IV ×2 (11:40)
[2024-06-24 11:42] LABS: Albumin Level 3.9 g/dl (3.5-5.0); Chloride 95 mmol/L (98-107); Sodium 130 mmol/L (136-145)
[2024-06-24 11:43] LABS: Potassium 3.6 mmoL/L (3.5-5.1)
[2024-06-24 11:45] LABS: Alanine Aminotransferase 20 U/L (12-78); Albumin/Globulin Ratio 1.4 (1.1-1.8); Alkaline Phosphatase 51 U/L (38-126); Anion Gap 9.6 mEq/L (5-15); Aspartate Amino Transferase 31 U/L (14-36); Bilirubin,Total 1.2 mg/dl (0.2-1.3); Blood Urea Nitrogen 16 mg/dl (7-17); Carbon Dioxide 29 mmol/L (22.0-30.0); Creatinine Clearance Estimated 48 mL/min (50-200); Estimated Glomerular Filt Rate 99 ml/min (>60); GFR (African American) 119 ML/MIN (>60); Globulin 2.7 g/dL (1.3-3.2); Total Protein,Serum 6.6 g/dl (6.3-8.2)
[2024-06-24 11:46] LABS: Chol/HDL Ratio 2.2 (1-3.5); Cholesterol 172 mg/dl (140-200); Ethyl Alcohol < 10 mg/dl (0-10); Glucose 108 mg/dl (74-100); HDL Cholesterol 79 mg/dl (40-60); Triglycerides 98 mg/dl (30-150); VLDL Cholesterol 20 mg/dL (0-40)
[2024-06-24 11:47] LABS: Activated Partial Thrombo Time 26.3 seconds (22.8-30.6); INR 0.95 (0.9-1.1); Prothrombin Time 10.7 seconds (10.1-12.5)
[2024-06-24 11:53] LABS: Lactate Venous 1.9 mmol/L (0.4-2.0); VBG Base Excess 3.6 mmol/L (-2.4-2.3); VBG HCO3 28.6 mmol/L (23-30); VBG Oxygen Saturation 85.4 % (50-70); VBG PCO2 48.8 mmol/L (35-51); VBG PH 7.39 mmol/L (7.31-7.41); VBG PO2 48.6 mmol/L (28-40); VBG Total CO2 30.1 mmol/L (23-27)
[2024-06-24 11:57] LABS: Direct LDL Cholesterol 66.01 mg/dL (100-129)
[2024-06-24 12:01] LABS: Troponin I < 0.01 ng/ml (0.00-0.034)
[2024-06-24 12:03] LABS: T4 (Thyroxine) 10.3 ug/dl (5.53-11.0)
[2024-06-24 12:10] LABS: Microscopic, Urine URINE MICROSCOPIC (MICROSCOPIC)
[2024-06-24 12:14] LABS: Appearance,Urine CLEAR (Clear); Bilirubin,Urine Negative (Negative); Blood, Urine Negative (Negative); Color,Urine YELLOW (Yellow); Glucose,Urine (UA) Negative (Negative); Ketones,Urine Negative (Negative); Leukocyte Esterase,Urine Negative (Negative); Nitrate,Urine Negative (Negative); PH,Urine 7.5 (5.0-8.5); Protein,Urine Negative (Negative); Urobilinogen,Urine 0.2 EU/dl (0.2)
[2024-06-24 12:16] VITALS: BP 134/74; PULSE 75; RESP 17; O2SAT 100
[2024-06-24 12:16] LABS: Thyroid Stimulating Hormone 0.88 uIU/mL (0.465-4.68)
[2024-06-24] MEDS: 0.9 % SODIUM CHLORIDE 1000ML 1,000 ML 999 ML IV (12:17)
[2024-06-24 12:29] LABS: Benzodiazepines Screen,Urine Negative ng/ml (<200)
[2024-06-24 12:30] VITALS: BP 137/76; PULSE 76; RESP 21; O2SAT 99
[2024-06-24 12:30] LABS: Amphetamine/Metha Screen,Urine Negative ng/ml (<1000); Barbiturates Screen,Urine Negative ng/ml (<200)
[2024-06-24 12:31] LABS: Cannabinoid Screen,Urine Negative ng/ml (<50)
[2024-06-24 12:32] LABS: Cocaine Screen,Urine Negative ng/ml (<300); Methadone Screen,Urine Negative ng/ml (<300)
[2024-06-24 12:33] LABS: Opiate Screen,Urine Negative ng/ml (<300)
[2024-06-24 12:34] LABS: Phencyclidine Screen,Urine Negative ng/ml (<25)
[2024-06-24 13:00] VITALS: BP 134/74; PULSE 75; RESP 11; O2SAT 99
--- NOTE | 2024-06-24 13:25 | PC.NURSE ---
Called orthopedics to check on rescheduling appt from today to later this afternoon or tomorrow. They were able to reschedule pt to tomorrow at 2:15pm. Dr Ramos and pt's aware of the changes.
[2024-06-24 14:41] LABS: Troponin I < 0.01 ng/ml (0.00-0.034)
[2024-06-24 15:45] VITALS: BP 137/72; PULSE 83; RESP 20; TEMP 36.8; O2SAT 100
== END 2024-06-24 15:47 | disposition home or self-care (01) ==
PROVIDERS: Emergency Provider Emergency Medicine; PCP Family Medicine
DX: R40.4 Transient alteration of awareness (principal); E87.1 Hypo-osmolality and hyponatremia; F03.90 Unspecified dementia, unspecified severity, without behavioral disturbance, psychotic disturbance, mood disturbance, and anxiety
CPT/HCPCS: 96360; 99291; 70450; 70496; 70498; 71275; 74177; 80053; 80061; 80307; 80320; 81001; 82803; 84436; 84443; 84484; 85025; 85610; 85730; 93005; J7030; Q9967

== ENCOUNTER 2024-06-26 12:52 | Outpatient (CLI) | payer MEDICARE, SELFPAY | END 2024-06-26 23:59 | disposition home or self-care (01) | LOC: RT 12:54 | PROVIDERS: PCP Family Medicine; Visit Provider Family Medicine | DX: R55 Syncope and collapse (principal); I45.10 Unspecified right bundle-branch block | CPT/HCPCS: 93270 ==

== ENCOUNTER 2024-07-07 13:07 | Outpatient (CLI) | payer MEDICARE, SELFPAY ==
--- NOTE | 2024-07-07 13:11 | XR_ITS ---
FINAL REPORT CLINICAL HISTORY: right shoulder pain from humeral head fracture x 2 weeks ago COMPARISON: None FINDINGS: RIGHT SHOULDER Two views demonstrate a transverse mildly impacted fracture of the surgical neck of the humerus. Fracture line extends into the surgical neck. The visualized joint spaces are normally aligned. The soft tissues are unremarkable. IMPRESSION: Humerus fracture as above. Reviewed, Interpreted and Dictated by Thee Linder MD Transcribed by Fatou Joseph Authenticated and [facility]
[2024-07-07 14:12] LABS: Anion Gap 10.3 mEq/L (5-15); Blood Urea Nitrogen 14 mg/dl (7-17); Calcium 9.4 mg/dl (8.4-10.2); Carbon Dioxide 31 mmol/L (22.0-30.0); Chloride 99 mmol/L (98-107); Estimated Glomerular Filt Rate 99 ml/min (>60); GFR (African American) 119 ML/MIN (>60); Glucose 94 mg/dl (74-100); Potassium 4.3 mmoL/L (3.5-5.1); Sodium 136 mmol/L (136-145)
== END 2024-07-07 23:59 | disposition home or self-care (01) ==
PROVIDERS: PCP Family Medicine; Visit Provider Physician Assistant Surgical
DX: M25.511 Pain in right shoulder (principal); E87.1 Hypo-osmolality and hyponatremia
CPT/HCPCS: 36415; 73030; 80048

== ENCOUNTER 2024-07-21 13:51 | Outpatient (CLI) | payer MEDICARE, SELFPAY ==
--- NOTE | 2024-07-21 13:57 | XR_ITS ---
FINAL REPORT TECHNIQUE: AP and axillary views of the right shoulder CLINICAL HISTORY: right shoulder fx f/u humeral head fx about a month ago COMPARISON: 07/07/2024 FINDINGS: 2 views of the right shoulder were obtained. There has been some interval healing of the humeral neck fracture since the prior exam of June. The joint space is preserved. Soft tissues are unremarkable. IMPRESSION: Some interval healing is present of the humeral neck fracture since prior exam of June. Reviewed, Interpreted and Dictated by Denise Buitrago MD Transcribed by Cindi Cassidy Authenticated and [facility]
== END 2024-07-21 23:59 | disposition home or self-care (01) ==
LOC: RAD 13:52
PROVIDERS: PCP Family Medicine; Visit Provider Physician Assistant Surgical
DX: S42.211A Unspecified displaced fracture of surgical neck of right humerus, initial encounter for closed fracture (principal)
CPT/HCPCS: 73030

== ENCOUNTER 2024-08-11 13:49 | Outpatient (CLI) | payer MEDICARE, SELFPAY ==
--- NOTE | 2024-08-11 13:52 | XR_ITS ---
FINAL REPORT CLINICAL HISTORY: Fracture f/u COMPARISON: Shoulder x-ray dated 07/21/2024 FINDINGS: RIGHT HUMERUS Two views of the right humerus were obtained. There is a mildly impacted transverse fracture through the surgical neck of the humerus. There is progressive callus formation at the lateral fracture margin consistent with continued healing. The fracture line is less visible than on prior exam. IMPRESSION: Continued healing transverse fracture through the surgical neck of the humerus. Reviewed, Interpreted and Dictated by Thee Linder MD Transcribed by Nette Bains Authenticated and [facility]
== END 2024-08-11 23:59 | disposition home or self-care (01) ==
LOC: RAD 13:50
PROVIDERS: PCP Family Medicine; Visit Provider Physician Assistant Surgical
DX: S42.211A Unspecified displaced fracture of surgical neck of right humerus, initial encounter for closed fracture (principal)
CPT/HCPCS: 73060

== ENCOUNTER 2024-09-17 13:42 | Outpatient (CLI) | payer MEDICARE, SELFPAY ==
--- OUTSIDE RECORDS SUMMARY | 2024-03-05 06:30 | XMS_ITS ---
Author Organization [facility] Address [address] [facility] [address] [place] [address] [place] [phone] Care Team Providers Care Manager Code Name Role Phone Sterling ForestPaloma clineian Primary Care Provider Allergies Allergen (clinical [...] Encounter Location Date Provider Diagnosis [facility] [address] [phone] 03/05/2024 Mik Marin Acquired hypothyroid ism E03.9 [...] * EDNAGABRIELLE CARDENASBIANCAOB: 4 (69 yo F)Acc No.[id number]:03/05/2024 Physical Patient: KEENAN TRINIDAD Provider: Paul Marin M.D. :1955 A ge:68 Y S ex:Female Date:03/05/2024 Address:[address] [place] [address] [place]-[id number] Subjective: * Chief Complaints: * [...] Diagno stic Procedure: S pasm of Esphogus- [facility] 04/2015, Tylenol Overdose- [facility] 07/17/2020. * Family History: F ather: [...] * Images: Billing Information: * Visit Code: 35445 Office Visit, Est Pt., Level 3. * Procedure Codes: G2211 Complex e/m visit add on. * Electronic signature of Frances Marin MD on 09/17/2024 at 01:48 PM EDT Sign off status: Pending * Provider: Paul Marin M.D. Date: 05/06/2023 Generated for Hugh zaldivar/Katlyn/eTransmitting on: 0 09/17/2024 01:48 PM EDT History and Physical Notes * HPI (History [...]
--- OUTSIDE RECORDS SUMMARY | 2024-04-14 06:30 | XMS_ITS ---
Author Organization [facility] Address [address] [facility] [address] [place] [address] [place] [phone] Care Team Providers Care Charter Driver Name Role Phone Tania Mik Primary Care [...] 04/14/2024 Encounters Encounter Location Date Provider Diagnosis [facility] [address] [place] [phone] 04/14/2024 Mik Marin GE (gastroenteritis) K52.9 Assessments [...] * PATSY CANCHOLAOB: 4 (69 yo F)Acc No.[id number]:04/14/2024 Progress Notes Patient: KEENAN TRINIDAD Provider: Paul Marin M.D. :1955 A ge:69 Y S ex:Female Date:04/14/2024 Address:[address] [place] [address], [id number] Subjective: * Chief Complaints: * [...] Diagno stic Procedure: S pasm of Esphogus- [facility] 04/2015, Tylenol Overdose- [facility] 07/17/2020. * Family History: F [...] p lat 130 100 - 400 * ZenaBeverly L 04/14/2024 11: 04:39 AM > , Provider reviewed results while patient in office. * Procedure Codes: G 2211 Complex e/[place], [address] CAPILLARY BLOOD DRAW, 43749 CBC WITH AUTO DIFF * Follow Up: v ia phone to report progress * Images: Billing Information: * Visit Code: 60014 Office Visit, Est Pt., Level 3. * Procedure Codes: G2211 Complex e/[place]. [address] CAPILLARY BLOOD DRAW. 02673 CBC WITH AUTO DIFF. * Electronic signature of Frances Marin MD on 09/17/2024 at 01:48 PM EDT Sign off status: Pending * Provider: Paul Marin M.D. Date: 0 04/14/2024 Generated for Hugh zaldivar/Katlyn/eTransmitting on: 0 09/17/2024 [...]
--- OUTSIDE RECORDS SUMMARY | 2024-06-26 07:15 | XMS_ITS ---
[facility] Address [address] [facility] [address] [id number] Care Team Providers Care Residential Treatment Counselor Name Role Phone PettusPaloma clineian Primary Care Provider Allergies Allergen (clinical [...] Performing Lab: Notes/Report: REASON FOR VISIT F/U [facility] ER Medications Medication SIG (Take, Route, [...] Notes Problem Incomplete right bundle branch block ([id number]) Incomplete right bundle branch block (I45.10) Active confirmed Vital Signs Blood pressure systolic 130 mm Hg 06/27/19 25 Blood pressure diastolic 82 mm Hg 025 Heart Rate 61 /min 06/26/2024 Height 66 in 06/26/2024 Weight 138 lbs 06/26/2024 BMI 22.27 kg/m2 06/26/2024 Encounters Encounter Location Date Provider Diagnosis [facility] [address], [place] [phone] 06/26/2024 Mik Marin Recurrent syncope R5 5 [...] * GABRIELLE CANCHOLAEDOB: [birth year] (69 yo F)Acc No.[id number]:06/26/2024 Progress Notes Patient: KEENAN TRINIDAD Provider: Paul Marin M.D. :1955 A ge:69 Y S ex:Female Date:06/26/2024 Address:[facility] [address] [place], [id number] Subjective: * Chief Complaints: * 1 . F/U [facility] ER. * HPI: H PI: 69 year old female presents with c/o Here for follow up on:?06/23 and 06/24/2024 [facility] ER visits. Pt had syncope episodes [...] Diagno stic Procedure: S pasm of Esphogus- [facility] ER 04/2015, Tylenol Overdose- [facility] ER 07/17/2020. * Family History: [...] medical condition - F02.80 7 . B ME 22.0-22.9, adult - Z68.22? Plan: * Treatment: [...] * Images: Billing Information: * Visit Code: 09769 Office Visit, Est Pt., Level 4. * Procedure Codes: G2211 Complex e/m visit add on. 3075F SYST BP GE 130 - 139MM HG. 3079F DIAST BP 80-89 MM HG. * Electronic signature of Frances Mrain MD on 09/17/2024 at 01:48 PM EDT Sign off status: Pending * Provider: Paul Marin M.D. Date: 0 06/26/2024 Generated for Hugh zaldivar/Katlyn/eTransmitting on: 0 09/17/2024 01:48 PM EDT History and Physical Notes * HPI (History of Present Illness) Category Sub-Category Detail Notes Category Not es HPI Here for follow up on: 06/23 and 06/24/2024 [facility] ER visits. Pt had syncope episodes [...]
--- NOTE | 2024-09-17 13:46 | XR_ITS ---
PROCEDURE INFORMATION: Exam: XR Right Shoulder Exam date and time: 09/17/2024 1:57 PM Age: 69 years old Clinical indication: Pain; Shoulder; Right; Additional info: Right shoulder FX TECHNIQUE: Imaging protocol: Radiologic exam of the right shoulder. Views: 2 or more views. COMPARISON: CR XR SHOULDER RT MIN 2V 07/21/2024 2:00 PM FINDINGS: Bones/joints: Decrease in conspicuity impacted fracture proximal humerus. Stable alignment. Mild degenerative changes of acromioclavicular joint. No dislocation. Soft tissues: Unremarkable. IMPRESSION: Healing RIGHT proximal humeral fracture.
--- OUTSIDE RECORDS SUMMARY | 2024-09-17 13:48 | XMS_ITS | Clinical Summary ---
Author Organization Healthcare Address [address] [place] [address] Care Team Providers Care Tamping Machine Operator Name Role Phone Unavailable Primary Care Provider Unavailabl e Social History Tobacco Use Types Packs/Day Years Used Date Smoking Tobacco: Never Assessed Comments Unknown Sex and Gender Information Value Date Recorded Sex Assigned at Not on file Legal Sex Female 7:49 PM EDT Gender Identity Not on file Sexual Orientation Not on file Plan of Treatment Health Maintenance Due Date Last Done Comments [facility]-Bone Density Scan 1955 [facility]-Depression Screening 1955 [facility]-/Child/Adol SDOH Screenings 1955 [facility]- SDOH Screenings 1971 [facility]-Adult SDOH Screenings 1971 [facility]-DTaP,Tdap,and Td Vaccine s (1 - Tdap) 1972 CT Colonography 1998 Colonoscopy 1998 FIT-DNA 1998 FIT 1998 FOBT 1998 Sigmoidoscopy 1998 [facility]-Colorectal Cancer Screening 1998 [facility]-Pneumococcal Vaccine: 50 + Years (1 of 1 - PCV) 2003 [facility]-Zoster Vaccines (1 of 2) 2003 CTI-KVDKI-00 Vaccine (3 - 2023- season) 2023 06/29/2020, 06/01/2020 [facility]-Influenza Vaccine (Seaso n Ended) 2024 12/09/2019 [facility]-RSV Vaccine: 60+ Years o r (1 - 1-dose 75+ series) 2028 HPV Vaccines Aged Out No longer eligi ble based on patient's age to complete this topic [facility]-HIB Vaccines Aged Out No longer e ligible based on patient's age to complete this topic [facility]-Hepatitis A Vaccines Aged Out No longer eligible based on patient's age to complete this topic [facility]-IPV Vaccines Aged Out No longer e ligible based on patient's age to complete this topic [facility]-Rotavirus Vaccines Aged Out No lo nger eligible based on patient's age to complete this topic Insurance MEDICARE
--- OUTSIDE RECORDS SUMMARY | 2024-09-17 13:48 | XMS_ITS | Encounter Summary ---
Author Organization Healthcare Address [address] [place] [address] Care Team Providers Care Appeals Analyst Name Role Phone Unavailable Primary Care Provider Unavailabl e Encounter Details Date Type Department Care Team (Late st Contact Info) Description 10/27/2020 [facility] [address] [place] [phone] Gisel Judge MD [address] [facility] [address] [place] [id number] Social History Tobacco Use Types Packs/Day Years Used Date Smoking Tobacco: Never Assessed Comments Unknown Sex and Gender Information Value Date Recorded Sex Assigned at Not on file Legal Sex Female 7:49 PM EDT Gender Identity Not on file Sexual Orientation Not on file documented as of this encounter Plan of Treatment Not on file documented as of this encounter Visit Diagnoses Not on filedocumented in this encounter
--- OUTSIDE RECORDS SUMMARY | 2024-09-17 13:48 | XMS_ITS | Patient Health Record ---
[facility] [address] [facility] [address] [place] [id number] Care Team Providers Care Mortgage Branch Manager Name Role Phone Mik Marin Primary Care Provider Kenneth Norma Unavailable [phone] Ginger Quarles Unavailable [phone] Allergies Allergen (clinical drug ingredient) Drug/Non Drug [...] Active Results Component Value Reference Range Notes Cortisol AM Reviewed date:10/28/2023 09:05:53 AM Interpretation:1.2 Performing Lab: Notes/Report: Test performed by [facility] [address] [place] [address] , [address], [place] [address] Waldo Marroquin MD, Cardiac Care Nurse CLIA: [id number] Cortisol AM 1.2 6.0-18.4 ug/dL CBC Fingerstick (in house) Reviewed date:01/02/2024 12:38:21 [...] - 38 plat 158 100 - 400 CBC Fingerstick (in house) Reviewed date:04/15/2024 08:52:48 [...] - 38 plat 130 100 - 400 Dexamethasone, Serum Reviewed date:10/28/2023 09:05:53 AM Interpretation:Normal Performing Lab: Notes/Report: Dexamethasone, Serum or Plasma, LC-MS/MS 204.8 INTERPRETIVE INFORMATION: Dexamethasone, Serum or Plasma by LC-MS/MS Adults baseline: Less than 50 ng/dL 8:00 AM draw following 1 mg dexamethasone between 11:00 pm and 12:00 am the previous evenin - 295 ng/dL 8:00 AM draw following 8 mg dexamethasone (4 x 2 mg doses) between 11:00 pm and 12:00 am the previous evenin - 2850 ng/dL This test was developed and its performance characteristics determined by [facility]. It has not been cleared or approved by the US Food and Drug Administration. This test was performed in a CLIA certified laboratory and is intended for clinical purposes. Performed By: [facility] [address] [place] [address] Cardiac Care Nurse: Denis Hobbs MD, PhD CLIA Number: [id number] P-TSI (Thyroid Stimulating I mmunoglobulin) Reviewed date:10/14/2023 10:50:18 AM Interpretation: Performing Lab: Notes/Report: P-TSH Reviewed date:10/14/2023 10:50:01 AM Interpretation: Performing Lab: Notes/Report: P-Thyroid Antibody Panel (TA BS) Reviewed date:10/14/2023 10:50:37 AM Interpretation: Performing Lab: Notes/Report: P-T4 Free (thyroxine) Reviewed date:10/15/2023 09:17:06 AM Interpretation: Performing Lab: Notes/Report: P-Free T3 Reviewed date:10/14/2023 10:49:41 AM Interpretation: Performing Lab: Notes/Report: P-Thyroid Peroxidase Antibod y Reviewed date:10/14/2023 11:44:39 AM Interpretation: Performing Lab: Notes/Report: Cardiac Event Monitor - 7 da y Reviewed date:07/24/2024 08:42:54 AM Interpretation: Performing Lab: Notes/Report: H-BMP Reviewed date:07/08/2024 01:05:09 PM Interpretation: Performing Lab: Notes/Report: Urinalysis - Inhouse Reviewed date:01/02/2024 12:38:12 PM Interpretation: Performing Lab: Notes/Report: Color/Clarity dark/laura Leuk neg Nitrite neg Urobili 3.2 Protein trace pH 6.0 Blood neg Sp. Gr. 1.020 Ketone 1+ Bili neg Gluc neg P-Dexamethasone Reviewed date:10/28/2023 09:05:06 AM Interpretation: Performing Lab: Notes/Report: P-Cortisol AM Reviewed date:10/28/2023 09:04:53 AM Interpretation: Performing Lab: Notes/Report: P-Cortisol, Random Reviewed date:10/28/2023 09:05:53 AM Interpretation:Normal Performing Lab: Notes/Report: Test performed by [facility] [address] [place], [place] [address] [place] , [address], [place] [address] Waldo Marroquin MD, Cardiac Care Nurse CLIA: [id number] Cortisol, Random 10.2 CORTISOL REFERENCE RANGE AM Serum: 6.0-18.4 ug/dL PM Serum: 2.7-10.5 ug/dL P-T4 Free (thyroxine) Reviewed date:10/15/2023 09:17:50 AM Interpretation:Normal Performing Lab: Notes/Report: Test performed by [facility] [address] [place], [place] [address] [address], [address], [place] [id number] Waldo Marroquin MD, Cardiac Care Nurse CLIA: [id number] Thyroxine Free (free T4) 1.65 0.86-1.76 ng/dL P-TSI (Thyroid Stimulating I mmunoglobulin) Reviewed date:10/14/2023 10:47:03 AM Interpretation:Normal Performing Lab: Notes/Report: TSI (Thyroid Stimulating Immunoglobulin) <0.10 <=0.54 IU/L INTERPRETIVE INFORMATION: Thyroid Stimulating Immunoglobulin (TSI) 0.54 IU/L or less.........Consistent with healthy thyroid function or non-Graves thyroid or autoimmune disease. Those with healthy thyroid function typically have results less than 0.1 IU/L. 0.55 IU/L or greater......Consistent with Graves disease (autoimmune hyperthyroidism) This assay specifically detects thyroid stimulating autoantibodies. For diagnostic purposes, the results obtained from this assay should be used in combination with clinical examination, patient medical history, and other findings. Performed By: [facility] [address] [place] [address] Cardiac Care Nurse: Denis Hobbs MD, PhD CLIA Number: [id number] P-TSH Reviewed date:10/14/2023 10:47:03 AM Interpretation:Normal Performing Lab: Notes/Report: Test performed by [facility] [address] [place], [place] [address] [place] , [place] [address] Waldo Marroquin MD, Cardiac Care Nurse CLIA: [id number] TSH 1.69 0.43-5.25 mU/L P-TSH Receptor Binding Antib syl Reviewed date:10/14/2023 10:47:03 AM Interpretation:Normal Performing Lab: Notes/Report: Test performed by [facility] [address] [place] [address] , [place] [address] Waldo Marroquin MD, Cardiac Care Nurse CLIA: [id number] TSH Receptor Binding Antibody <1.1 <1.76 IU/L P-Thyroid Antibody Panel (TA BS) Reviewed date:10/14/2023 10:47:03 AM Interpretation:Normal Performing Lab: Notes/Report: Test performed by [facility] [address] [place] [address] , [place] [address] Waldo Marroquin MD, Cardiac Care Nurse CLIA: [id number] Thyroid Peroxidase Antibody <9 <9-34 IU/mL An elevated Thyroid Peroxidase Antibody should not be used alone to make the diagnosis of autoimmune thyroid disease. A result of <34 IU/mL does not definitively rule out the possibility of autoimmune thyroid disease. Thyroglobulin Antibody 13.0 <10-115.0 IU/mL The test is performed by the [employer] ECLIA methodology. Values obtained with different assay methods or kits cannot be directly compared. P-Reverse T3 Reviewed date:10/14/2023 10:47:03 AM Interpretation:slightly high at 29 Performing Lab: Notes/Report: Triiodothyronine, Reverse - LC-MS/MS 29 8-25 ng/dL Test developed and its analytical performance characteristics have been determined by [facility] [place], [place]. It has not been cleared or approved by the U.S. Food and Drug Administration. This assay has been validated pursuant to the CLIA regulations and is used for clinical purposes. Test Performed By [facility] , CLIA [id number] [facility] [address], Ramon Davis MD PhD P-Free T3 Reviewed date:10/14/2023 10:47:03 AM Interpretation:slightly low Performing Lab: Notes/Report: Test performed by [facility] [place] [address] [facility] , [place] [address] Waldo Marroquin MD, Cardiac Care Nurse CLIA: [id number] Free T3 2.21 2.30-4.40 pg/mL P-Thyroglobulin Antibody Reviewed date:10/14/2023 11:45:11 AM Interpretation:see TABS Performing Lab: Notes/Report: see TABS P-Thyroid Peroxidase Antibod y Reviewed date:10/14/2023 11:44:56 AM Interpretation:see TAB Performing Lab: Notes/Report: see TAB H-BMP Reviewed date:07/08/2024 02:36:15 PM Interpretation:satisfactory Performing Lab: Notes/Report: NA 136 136-145 mmol/L K 4.3 3.5-5.1 mmoL/L CL 99 98-107 mmol/L CO2 31 22.0-30.0 mmol/L GAP 10.3 5-15 mEq/L BUN 14 7-17 mg/dl CREATT 0.60 0.52-1.04 mg/dl GFRAA 119 >60 ML/MIN EGFR 99 >60 ml/min GLU 94 74-100 mg/dl CA 9.4 8.4-10.2 mg/dl Urinalysis - Inhouse Reviewed date:11/06/2023 04:30:55 PM Interpretation: Performing Lab: Notes/Report: Color/Clarity yellow/clear Leuk neg Nitrite neg Urobili 3.2 Protein neg pH 7.0 Blood neg Sp. Gr. 1.010 Ketone neg Bili neg Gluc neg Urinalysis - Inhouse Reviewed date:12/18/2023 12:34:50 PM [...] Notes/Report: glycohemoglobin 5.3% 5 - 6.5 % Medications Medication SIG (Take, Route, Frequency, Duration) Notes Start Date End Date Status Rivastigmine 9.5 MG/24HR 1 patch to skin Transdermal Once a day Active Memantine HCl 5 MG 1 tab(s) orally 2 ti mes a day; Duration: 90 days Active Probiotic Blend - as directed Orally Active Ondansetron HCl 4 MG 1 tablet as needed Orally Three times a day 04/14/2024 Active Constulose 10 GM/15ML TAKE 15 ML BY MOUT H ONCE DAILY NEEDED; Duration: 30 Active Citracal Maximum Plus - as directed Orally Active Vitamin B12 100 MCG as directed Orally Active Magnesium Citrate - as directed Orally Active Magnesium Malate - as directed Active Levothyroxine Sodium 88 MCG 1 tablet in the morning on an empty stomach Orally Once a day; Duration: 90 days Active Metoprolol Succinate ER 25 MG 1 tablet Orally Once a day; Duration: 90 days 08/02/2024 Active Slow Fe 142 (45 Fe) MG 1 tab(s) orally o nce a day Active Vitamin D3 50 MCG (1999 UT) 2 cap(s) ora lly once a day Active Liothyronine Sodium 5 MCG 1 tablet on an empty stomach Orally Two times a day; Duration: 90 days Active Immunizations Vaccine Route Administration Date Status Comme nts COVID 19 Moderna Unknown 06/01/2020 Administered COVID 19 Moderna Unknown 06/29/2020 Administered COVID 19 Moderna Unknown 02/05/2021 Administered Fluzone High Dose (65yr and older) Unknown 12/09/2019 Administered Fluzone High Dose (65yr and older) Unknown 12/16/2020 Administered Fluzone High Dose (65yr and older) IM Intramuscular 01/19/2022 Administered Fluzone High Dose (65yr and older) Unknown 12/27/2022 Administered PNEUMOVAX 23 VACCINE IM Intramuscular 03/09/2021 Administe red Prevnar (PCV20) IM Intramuscular 03/05/2022 Administered Shingrix Unknown 01/31/2022 Administered Tetanus Tdap-Adacel (over 7yrs) IM Intramuscular 01/12/2016 Administered xAdministration of injection Unknown 08/08/2015 Administered Problems Problem Type SNOMED Code ICD Code Onset Dates Problem Status W/U Status Risk Notes Problem Anemia (404792721) Anemia NOS (285.9) Active confirmed Problem Vitamin D deficiency (67590778) Vitamin D deficiency (E55.9) Active confirmed Problem Osteopenia (640930322) Osteopenia (M85.80) Active confirmed Problem Arthropathy of lumbar facet joint (184999673) Lumbar facet arthropathy (M47.816) Active confirmed Problem Anorexia (84481266) Anorexia (R63.0) Active con firmed Problem Memory loss (21521436) Memory loss (R41.3) Active confirmed Problem Dementia (87692604) 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) Active confirmed Problem Pick's disease with Pick bodies (disorder) (959133978) Pick's disease (G31.01) Active confirmed Problem Chronic pain (16446860) Other chronic pain (G89.29) Active confirmed Problem Acquired spondylolisthesis (970844913) Spondylolisthesis , lumbar region (M43.16) Active confirmed Problem Dyspareunia (34546312) Dyspareunia (N94.1) Active confirmed Problem Chest pain (16369959) Other chest pain (R07.89) Active confirmed Problem Degeneration of lumbar intervertebral disc (97273641) Lumbar degenerative disc disease (M51.36) Active confirmed Problem Constipation (63259057) Constipation, unspecified constipation type (K59.00) Active confirmed Problem Acquired hypothyroidism (143056264) Acquired hypothyroidism (E03.9) Active confirmed Problem Hyperlipidemia (06102344) Hyperlipidemia, unspecified hyperlipidemia (E78.5) Active confirmed Problem Iron deficiency anemia (82321704) Other iron deficiency anemia (D50.8) Active confirmed Problem Osteoarthritis of knee (273857139) Primary osteoarthritis of both knees (M17.0) Active confirmed Problem Sciatica (87246062) Right sided sciatica (M54.31) Active confirmed Problem Arthritis of right hip (3165742663474695) Arthritis of right hip (M16.11) Active confirmed Problem Mild cognitive disorder (120966054) MCI (mild cognitive impairment) (G31.84) Active confirmed Problem Incomplete right bundle branch block (189995985) Incomplete right bundle branch block (I45.10) Active confirmed Vital Signs Heart Rate 61 /min 06/26/2024 Blood pressure diastolic 82 mm Hg 06/26/2024 Height 66 in 06/26/2024 Blood pressure systolic 130 mm Hg 06/26/2024 Weight 138 lbs 06/26/2024 BMI 22.27 kg/m2 06/26/2024 Encounters Encounter Location Date Provider Diagnosis [facility] [address] [place], [place] [id number] 10/08/2023 Norma Riosond Acquired hypothyroid ism E03.9 ; Dementia 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 behavioral disturbance F02.80 and Middle ear effusion, right H65.91 [facility] [address] [place], [place] [id number] 10/14/2023 Mik Olivierberry Acquired hypothyroid ism E03.9 [facility] [address] [place], [place] [id number] 10/21/2023 Mik Dallas Acquired hypothyroid ism E03.9 ; Weight loss R63.4 ; Anorexia R63.0 and Fatigue, unspecified type R53.83 [facility] [address] [facility] [address] [place], [place] [id number] 10/23/2023 Mik Dallas Weight loss R63.4 ; Anorexia R63.0 and Fatigue, unspecified type R53.83 [facility] [address] [facility] [address] [place], [place] [id number] 11/06/2023 Ginger Crowdy Dysuria R30.0 [facility] [address] [facility] [address] [place] [id number] 12/18/2023 Ginger Crowdy Conjunctivitis of rosario th eyes, unspecified conjunctivitis type H10.9 and Glycosuria R81 [facility] [address] [facility] [address] [place] [id number] 01/01/2024 Ginger Crowdy Acute URI J06.9 and Glycosuria R81 [facility] [address] [facility] [address] [place] [id number] 01/14/2024 Mik Dallas Other fatigue R53.83 [facility] [address] [facility] [address] [place] [id number] 03/03/2024 Mik Dallas Removal of staple Z48.02 [facility] [address] [facility] [address] [place] [id number] 03/05/2024 Mik Dallas Acquired hypothyroid ism E03.9 [facility] [address] [facility] [address] [place] [id number] 04/14/2024 Mik Dallas GE (gastroenteritis) K52.9 [facility] [address] [facility] [address] [place] [id number] 06/26/2024 Mik Dallas Recurrent syncope R5 5 ; Incomplete right bundle branch block I45.10 ; Hyponatremia E87.1 ; Acquired hypothyroidism E03.9 ; Pick's disease G31.01 ; 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 and BMI 22.0-22.9, adult Z68.22 [facility] [address] [place], [place] [id number] 10/07/2023 Mik Dallas Acquired hypothyroid ism E03.9 [facility] [address] [place] [id number] 10/14/2023 Mik Dallas Abnormal thyroid blo od test R79.89 [facility] [address] [place] [id number] 10/17/2023 Mik Dallas [facility] [address] [place] [id number] 10/28/2023 Mik Dallas [facility] [address] [place] [id number] 01/23/2024 Mik Dallas [facility] [address] [place] [id number] 02/17/2024 Mik Dallas [facility] [address] [place] [id number] 03/20/2024 Mik Dallas Acquired hypothyroid ism E03.9 and Dementia 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 behavioral disturbance F02.80 [facility] [address] [place] [id number] 07/24/2024 Mik Dallas [facility] [address] [place] [id number] 08/11/2024 Mik Dallas [facility] [address] [place] [id number] 10/11/2023 Mik Dallas Chronic constipation K59.09 Assessments Encounter Date Diagnosis (ICD Code) Assessment Notes Treatment Notes Treatment Clinical Notes Section Notes 10/07/2023 Acquired hypothyroidism (ICD-10 - E03.9) 10/08/2023 Dementia 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 behavioral disturbance (ICD-10 - F02.80) 10/08/2023 Acquired hypothyroidism (ICD-10 - E03.9) 10/11/2023 Chronic constipation (ICD-10 - K59.09) 10/14/2023 Abnormal thyroid blood test (ICD-10 - R79.89) 10/14/2023 Acquired hypothyroidism (ICD-10 - E03.9) 10/21/2023 Weight loss (ICD-10 - R63.4) 10/21/2023 Acquired hypothyroidism (ICD-10 - E03.9) 11/06/2023 Dysuria (ICD-10 - R30.0) Patient could not get a urine sample. Will take a cup home and try to get a sample to drop off. 12/18/2023 Glycosuria (ICD-10 - R81) There was glucose in the urine but serum glucose and A1C were normal. Will recheck another U/A next week. 12/18/2023 Conjunctivitis of both eyes, unspecified conjunctivitis type (ICD-10 - H10.9) 01/01/2024 Glycosuria (ICD-10 - R81) U/A has protein and ketones but no glucose. Will increase water intake and recheck in 1 week. 01/01/2024 Acute URI (ICD-10 - J06.9) 01/14/2024 Other fatigue (ICD-10 - R53.83) Monitor for now, call with any new symptoms 03/03/2024 Removal of staple (ICD-10 - Z48.02) 03/05/2024 Acquired hypothyroidism (ICD-10 - E03.9) 03/20/2024 Acquired hypothyroidism (ICD-10 - E03.9) 04/14/2024 GE (gastroenteritis) (ICD-10 - K52.9) 10/23/2023 Weight loss (ICD-10 - R63.4) 10/23/2023 Anorexia (ICD-10 - R63.0) 06/26/2024 Recurrent syncope (ICD-10 - R55) 06/26/2024 Incomplete right bundle branch block (ICD-10 - I45.10) 10/23/2023 Fatigue, unspecified type (ICD-10 - R53.83) 06/26/2024 Hyponatremia (ICD-10 - E87.1) 03/20/2024 Dementia 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 Will need to check AM cortisol and dexamethasone level later this week. Previous labs reviewed with patient's family today in the office Plan Of Treatment No Information Insurance Providers Payer Name Payer Address Payer Phone Subscriber Number Group Number Insured Name Patient Relationship to Insured Coverage Start Date Coverage End Date MEDICARE PART B [address] [address] [place] [address] [id number] STEPHEN PetersKEENAN Self - patient is the insured 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
== END 2024-09-17 23:59 | disposition home or self-care (01) ==
LOC: RAD 13:43
PROVIDERS: PCP Family Medicine; Visit Provider Physician Assistant Surgical
DX: S42.201D Unspecified fracture of upper end of right humerus, subsequent encounter for fracture with routine healing (principal)
CPT/HCPCS: 73030

== ENCOUNTER 2024-09-26 10:39 | Outpatient (CLI) | payer MEDICARE, SELFPAY ==
--- OUTSIDE RECORDS SUMMARY | 2024-04-14 06:30 | XMS_ITS ---
Author [facility] [address] [facility] [address] [place] [address] [place] [phone] Care Team Providers Care Commercial Loan Administrator Name Role Phone Tania Mik Primary Care [...] 04/14/2024 Encounters Encounter Location Date Provider Diagnosis [facility] [address] [place] [phone] 04/14/2024 Mik Marin GE (gastroenteritis) K52.9 Assessments [...] * PATSY CANCHOLAOB: 4 (69 yo F)Acc No.[id number]:04/14/2024 Progress Notes Patient: KEENAN TRINIDAD Provider: Paul Marin M.D. :1955 A ge:69 Y S ex:Female Date:04/14/2024 Address:[address] [place] [address], [id number] Subjective: * Chief Complaints: * [...] Diagno stic Procedure: S pasm of Esphogus- [facility] 04/2015, Tylenol Overdose- [facility] 07/17/2020. * Family History: F [...] G 2211 Complex e/[place], [address] CAPILLARY BLOOD DRAW, 29577 CBC WITH AUTO DIFF * Follow Up: v ia phone to report progress * Images: Billing Information: * Visit Code: 62371 Office Visit, Est Pt., Level 3. * Procedure Codes: G2211 Complex e/[place]. [address] CAPILLARY BLOOD DRAW. 35121 CBC WITH AUTO DIFF. * Electronic signature of Frances Marin MD on 09/28/2024 at 10:45 AM EDT Sign off status: Pending * Provider: Paul Marin M.D. Date: 0 04/14/2024 Generated for Hugh zaldivar/Katlyn/eTransmitting on: 0 09/28/2024 10:45 AM EDT History and Physical Notes * HPI [...]
--- OUTSIDE RECORDS SUMMARY | 2024-09-28 10:45 | XMS_ITS | Clinical Summary ---
Author Organization Healthcare Address [address] [place] [address] Care Team Providers Care Crime Scene Evidence Technician Name Role Phone Unavailable Primary Care Provider [...] 2003 [facility]-Zoster Vaccines (1 of 2) 2003 [id number]-[id number] Vaccine (3 - season) 2023 06/29/2020, 06/01/2020 [facility]-Influenza Vaccine (#1) 2024 12/09/2019 [facility]-RSV Vaccine: 60+ Years o [...]
--- OUTSIDE RECORDS SUMMARY | 2024-09-28 10:45 | XMS_ITS | Encounter Summary ---
Author Organization Healthcare Address [address] [place] [address] Care Team Providers Care Canal Equipment Mechanic Name Role Phone Unavailable Primary Care Provider Unavailabl e Encounter Details Date Type Department Care Team (Late st Contact Info) Description 10/27/2020 [facility] [address] [place] [address] Gisel Judge MD [address] [place] [id number] Social History Tobacco Use Types Packs/Day Years [...]
== END 2024-09-26 23:59 | disposition home or self-care (01) ==
LOC: LAB.DROPOF 09-28 10:40
PROVIDERS: PCP Family Medicine; Visit Provider Student in an Organized Health Care Education/Training Program
DX: N39.0 Urinary tract infection, site not specified (principal)
CPT/HCPCS: 87086

== ENCOUNTER 2025-02-02 10:15 | Outpatient (CLI) | payer MEDICARE, SELFPAY ==
--- OUTSIDE RECORDS SUMMARY | 2023-12-18 06:30 | XMS_ITS ---
Author Organization [facility] Address [address] [facility] [address] [place] [address] [place] [id number] Care Team Providers Care Stranner Name Role Phone Tania Mik Primary Care Provider [phone] Ginger Quarles Unavailable [phone] Allergies Allergen (clinical drug ingredient) Drug/Non Drug Allergy documented on EMR Reaction Allergy Type Onset Date Status meperidine Demerol hives; itchy Drug Allergy Act clarita Midazolam hives itchy Drug Allergy Activ e acetaminophen / oxycodone Percocet Unknown Drug Allergy Active clindamycin Clindamycin sick, rash Drug Allergy Ac tive oxycodone oxyCODONE Unknown Drug Allergy Active Substance with penicillin structure and antibacterial mechanism of action (substance) Penicillins hives and lost consciousness Drug Allergy Active Results Component Value Reference Range Notes Urinalysis - Inhouse Reviewed date:12/18/2023 12:34:50 PM Interpretation: Performing Lab: Notes/Report: Color/Clarity yellow/clear Leuk neg Nitrite neg Urobili 3.2 Protein neg pH 7.0 Blood neg Sp. Gr. 1.020 Ketone neg Bili neg Gluc trace Glucose (In-House) Reviewed date:12/18/2023 12:23:24 PM Interpretation: Performing Lab: Notes/Report: blood glucose 88 74 - 106 mg/dL CBC Fingerstick (in house) Reviewed date:12/18/2023 12:35:06 PM Interpretation: Performing Lab: Notes/Report: wbc 5.9 3.5 - 10 lym 21.8% 15 - 50 mid 5.7% 2 - 15 gran 72.5% 35 - 80 rbc 4.52 3.5 - 5.5 hgb 14.0 11.5 - 16.5 hct 42.5 35 - 55 mcv 94.0 75 - 100 mch 31.0 25 - 35 mchc 33.0 31 - 38 plat 157 100 - 400 Glycohemoglobin A1c (in hous e) Reviewed date:12/18/2023 12:23:39 PM Interpretation: Performing Lab: Notes/Report: glycohemoglobin 5.3% 5 - 6.5 % REASON FOR VISIT both eyes pink Medications Medication SIG (Take, Route, Frequency, Duration) Notes Start Date End Date Status Levothyroxine Sodium 88 MCG 1 tab(s) Ora lly once a day; Duration: 90 days Active Memantine HCl 5 MG 1 tab(s) orally 2 ti mes a day Active Liothyronine Sodium 5 MCG 1 tablet on an empty stomach Orally Two times a day; Duration: 30 days Active Lactulose 10 GM/15ML 15 ml as needed Ora lly Once a day Active Vitamin D3 50 MCG (2000 UT) 2 cap(s) ora lly once a day Active Vitamin B12 100 MCG as directed Orally Active Moxifloxacin HCl 0.5 % 1 drop into affec zoie eye Ophthalmic Three times a day 12/18/2023 Active Citracal Maximum Plus - as directed Orally Active Slow Fe 142 (45 Fe) MG 1 tab(s) orally o nce a day Active Magnesium Malate - as directed Active Magnesium Citrate - as directed Orally Active Probiotic Blend - as directed Orally Active Vital Signs Blood pressure systolic 130 mm Hg 12/18/19 24 Blood pressure diastolic 82 mm Hg 024 Heart Rate 64 /min 12/18/2023 Height 66 in 12/18/2023 Weight 132.2 lbs 12/18/2023 BMI 21.34 kg/m2 12/18/2023 Encounters Encounter Location Date Provider Diagnosis [facility] [address] [place], [place] [id number] 12/18/2023 Ginger Crowdy Conjunctivitis of rosario th eyes, unspecified conjunctivitis type H10.9 and Glycosuria R81 Assessments Encounter Date Diagnosis (ICD Code) Assessment Notes Treatment Notes Treatment Clinical Notes Section Notes 12/18/2023 Conjunctivitis of both eyes, unspecified conjunctivitis type (ICD-10 - H10.9) 12/18/2023 Glycosuria (ICD-10 - R81) There was glucose in the urine but serum glucose and A1C were normal. Will recheck another U/A next week. Plan Of Treatment Medication Medication Name Sig Start Date Stop Date Notes Moxifloxacin HCl 0.5 % 1 drop into affec zoie eye Ophthalmic Three times a day 12/18/2023 Treatment Notes Assessment Notes Glycosuria There was glucose in the urine but serum glucose and A1C were normal. Will recheck another U/A next week. Next Appt Details Follow Up: 1 Week, Reason: U /A Progress Notes * GABRIELLE CANCHOLAEDOB: 4 (69 yo F)Acc No.[id number]:12/18/2023 Progress Notes Patient: KEENAN TRINIDAD Provider: LUIS Alaniz :1955 A ge:68 Y S ex:Female Date:12/18/2023 Address:[address] [place] [address] [id number] Pcp:Mik Marin Subjective: * Chief Complaints: * 1 . Both eyes pink. * HPI: O pthalmology: The patient is here today with c/o redness in both eyes. states he noticed the redness worse in left eye yesterday and the right is now red. states the nocturia is getting worse. 68 year old female presents with c/o redness. Denies : eye pain. D enies : eye irritation. * ROS: D ERMATOLOGY: no R daxa. n o H laci. G ASTROENTEROLOGY: no N ausea. n o V omiting. n o D iarrhea.? U ROLOGY: no D ifficulty urinating. n o B lood in urine. * Medical History: H ypothryoidism, uses brand name Synthroid, Allergic rhinitis, Pulmonary nodule, CT done 2016, Low back pain, s/p pain management evaluation in 2019, Lumbar Disc Disease, Lumbar facet arthropathy, Arthritis, both knees, s/p ortho evaluation in 2019, Dementia, Pick's disease (Logopenic progressive aphasia), s/p Neurology eval. x 2 in 2020. * Surgical History: T onsilectomy , x2 , Hysterectomy Total 1983, RT Knee Lateral Release , Cyst Removed From Back , LT Foot Bunion , Urinary Tract Scope 03/2006, Colonoscopy 2003, 2013, Bunionectomy 09/2007, Bunionectomy 09/2008, RT Hip Replacment- [facility] 08/2020, RT Cataract 02/01/2021, LT Cataract 02/26/2021. * Hospitalization/Major Diagno stic Procedure: S pasm of Esphogus- [facility] ER 04/2015, Tylenol Overdose- [facility] ER 07/17/2020. * Family History: F ather: unknown, Adopted has no history. M other: unknown. C hildren: alive. 1 son(s) , 1 daughter(s) - healthy. . * Social History: C URRENT TOBACCO USE S moking Status: Patient does NOT smoke. C affeine: yes, frequency: 2 cups of coffe and 1 can of pop. Exercise: yes. Marital Status: . Past smoking status: no. Alcohol: Type: , Frequency: Socially ,Years: , Determination:. * Medications: T aking Probiotic Blend - Capsule as directed Orally , Taking Magnesium Citrate - Solution as directed Orally , Taking Magnesium Malate - Powder as directed , Taking Citracal Maximum Plus - Tablet as directed Orally , Taking Vitamin B12 100 MCG Tablet as directed Orally , Taking Slow Fe 142 (45 Fe) MG Tablet Extended Release 1 tab(s) orally once a day , Taking Vitamin D3 50 MCG (2000 UT) Capsule 2 cap(s) orally once a day , Taking Memantine HCl 5 MG Tablet 1 tab(s) orally 2 times a day , Taking Levothyroxine Sodium 88 MCG Tablet 1 tab(s) Orally once a day , Taking Lactulose 10 GM/15ML Solution 15 ml as needed Orally Once a day , Taking Liothyronine Sodium 5 MCG Tablet 1 tablet on an empty stomach Orally Two times a day , Medication List reviewed and reconciled with the patient * Allergies: P enicillins: hives and lost consciousness, Demerol: hives; itchy, Midazolam: hives itchy, Clindamycin: sick, rash, Percocet, oxyCODONE. Objective: * Vitals: W t:132.2, Temp:97.6, BP:130/82, HR:64, Nurse:MICHELLE, Ht: 66, BMI:21.34. * Examination: G eneral Examination: General Appearance: N AD. H EENT: conjunctivae erythematous bilaterally but worse on the right, PERRLA, TM's normal, translucent. O ral cavity:?no lesions, mucosa moist and WNL, no erythema. N [place]: s upple, no lymphadenopathy. C hest: n ormal shape and expansion. H eart: R SR. L ungs: c lear to auscultation. A bdomen: bowel sounds present, soft and nontender, no organomegaly or masses, no guarding or rigidity. B ack: no CVA tenderness. Assessment: * Assessment: 1. C onjunctivitis of both eyes, unspecified conjunctivitis type - H10.9 (Primary) ?2. G lycosuria - R81 Plan: * Treatment: Value Reference Range w bc 5.9 3.5 - 10 * l ym 21.8% 15 - 50 * m id 5.7% 2 - 15 * g ran 72.5% 35 - 80 * r bc 4.52 3.5 - 5.5 * h gb 14.0 11.5 - 16.5 * h ct 42.5 35 - 55 * m cv 94.0 75 - 100 * m ch 31.0 25 - 35 * m chc 33.0 31 - 38 * p lat 157 100 - 400 * Amanda De La Cruz 12/18/2023 12:26:0 3 PM > , Provider reviewed results while patient in office.Ginger Quarles 12/18/2023 12:34:58 PM > 2.?Glycosuria?LAB: Urinalysis - Inhouse (Collection Date & Time - 12/18/2023)* Value Reference Range C olor/Clarity yellow/clear * L euk neg * N itrite neg * U robili 3.2 * P rotein neg * p H 7.0 * B lood neg * S p. Gr. 1.020 * K etone neg * B abiel neg * G pema trace * Amanda De La Cruz 12/18/2023 12:26:4 1 PM > , Provider reviewed results while patient in office.Ginger Quarles 12/18/2023 12:34:38 PM > ?LAB: Glucose (In-House) (Collection Date & Time - 12/18/2023)* Value Reference Range b lood glucose 88 74 - 106 mg/dL * Amanda De La Cruz 12/18/2023 12:16:2 2 PM > , Provider reviewed results while patient in office.Ginger Quarles 12/18/2023 12:23:18 PM > ?LAB: Glycohemoglobin A1c (in house) (Collection Date & Time - 12/18/2023)* Value Reference Range g lycohemoglobin 5.3% 5 - 6.5 % * Amanda 12/18/2023 12:17:5 3 PM > , Provider reviewed results while patient in office.Ginger Quarles 12/18/2023 12:23:34 PM > Notes: There was glucose in the urine but serum glucose and A1C were normal. Will recheck another U/A next week.?? * Procedure Codes: 8 1002 Urinalysis, no micro, [address] CAPILLARY BLOOD DRAW, 86891 GLYCATED HEMOGLOBIN TEST, Modifiers: QW , 95120 GLUCOSE TEST, 53979 CBC WITH AUTO DIFF * Follow Up: 1 Week (Reason: U/A) * Images: Billing Information: * Visit Code: 66527 Office Visit, Est Pt., Level 3. * Procedure Codes: 67401 Urinalysis, no micro. 44810 CAPILLARY BLOOD DRAW. 40041 GLYCATED HEMOGLOBIN TEST. Modifiers: QW 44560 GLUCOSE TEST. 49089 CBC WITH AUTO DIFF. * Electronic signature of LUIS Chamorro on 02/03/2025 at 02:58 PM EST Sign off status: Pending * Provider: LUIS Alaniz Date: Generated for Hugh zaldivar/Katlyn/eTransmitting on: 04/05/2024 02:58 PM EST History and Physical Notes * HPI (History of Present Illness) Category Sub-Category Detail Notes Category Not es Opthalmology redness eye pain eye irritation Examination Category Sub-Category Detail Notes Category Not es General Examination HEENT: conjunctivae erythematous bilaterally but worse on the right, PERRLA, TM's normal, translucent Heart: RSR Lungs: clear to auscultatio n Abdomen: bowel sounds present , soft and nontender, no organomegaly or masses, no guarding or rigidity General Appearance: NAD Neck: supple, no lymphaden opathy Oral cavity: no lesions, mucosa m oist and WNL, no erythema Back: no CVA tenderness Chest: normal shape and exp ansion
--- OUTSIDE RECORDS SUMMARY | 2024-01-01 09:30 | XMS_ITS ---
Author [facility] Address [address] [facility] [address] [place] [phone] Care Team Providers Care Supervisor [employer] Name Role Phone Mik Marin Primary Care Provider [phone] Ginger Quarles Unavailable [phone] Allergies Allergen (clinical drug ingredient) Drug/Non Drug [...] Reference Range Notes Urinalysis - Inhouse Reviewed date:01/02/2024 12:38:12 PM Interpretation: Performing Lab: Notes/Report: Color/Clarity dark/laura Leuk neg Nitrite neg Urobili 3.2 Protein trace pH 6.0 Blood neg Sp. Gr. 1.020 Ketone 1+ Bili neg Gluc neg CBC Fingerstick (in house) Reviewed date:01/02/2024 12:38:21 PM Interpretation: Performing Lab: Notes/Report: wbc 4.8 3.5 - 10 lym 13.4% 15 - 50 mid 3.5% 2 - 15 gran 83.1% 35 - 80 rbc 4.21 3.5 - 5.5 hgb 13.1 11.5 - 16.5 hct 39.4 35 - 55 mcv 93.4 75 - 100 mch 31.0 25 - 35 mchc 33.2 31 - 38 plat 158 100 - 400 REASON FOR VISIT follow up on UTI Medications Medication SIG (Take, Route, Frequency, Duration) Notes Start Date End Date Status Magnesium Citrate - as directed Orally Active Probiotic Blend - as directed Orally Active Citracal Maximum Plus - as directed Orally Active Magnesium Malate - as directed Active Levothyroxine Sodium 88 MCG Take 1 table t by mouth once daily for 90 days; Duration: 90 Active Zithromax Z-Fox 250 MG as directed Orall y once daily 04/16/2023 Active Liothyronine Sodium 5 MCG 1 tablet on an empty stomach Orally Two times a day; Duration: 30 days Active Lactulose 10 GM/15ML 15 ml as needed Ora lly Once a day Active Memantine HCl 5 MG 1 tab(s) orally 2 ti mes a day Active Moxifloxacin HCl 0.5 % 1 drop into affec zoie eye Ophthalmic Three times a day 12/18/2023 Active Slow Fe 142 (45 Fe) MG 1 tab(s) orally o nce a day Active Vitamin B12 100 MCG as directed Orally Active Vitamin D3 50 MCG (2000 UT) 2 cap(s) ora lly once a day Active Vital Signs Blood pressure systolic 130 mm Hg 01/01/20 24 Blood pressure diastolic 60 mm Hg 024 Heart Rate 69 /min 01/01/2024 Height 66 in 01/01/2024 Weight 134.2 lbs 01/01/2024 BMI 21.66 kg/m2 01/01/2024 Encounters Encounter Location Date Provider Diagnosis [facility] [address] [phone] 01/01/2024 Ginger Quarles Acute URI J06.9 and Glycosuria R81 Assessments Encounter Date Diagnosis (ICD Code) Assessment Notes Treatment Notes Treatment Clinical Notes Section Notes 01/01/2024 Acute URI (ICD-10 - J06.9) 01/01/2024 Glycosuria (ICD-10 - R81) U/A has protein and ketones but no glucose. Will increase water intake and recheck in 1 week. Plan Of Treatment Medication Medication Name Sig Start Date Stop Date Notes Zithromax Z-Fox 250 MG as directed Orally once daily 04/16 Treatment Notes Assessment Notes Glycosuria U/A has protein and ketones but no glucose. Will increase water intake and recheck in 1 week. Next Appt Details Follow Up: drop of urine in 1 week, Reason: Progress Notes * PATSY CANCHOLAOB: 4 (69 yo F)Acc No.[id number]:01/01/2024 Progress Notes Patient: KEENAN TRINIDAD Provider: LUIS Alaniz :1955 A ge:68 Y S ex:Female Date:01/01/2024 Address:[facility] [address], [place], [id number] Pcp:Mik Marin Subjective: * Chief Complaints: * 1 . follow up on UTI. * HPI: U rology: Pt is here for f/u on uti. 68 year old female presents with c/o frequent urination l arge amount, small amount. Pt sts it seems to go in and out. E NT/respiratory: Has had some body aches, her has been sick the past few days. c/o sore throat. Denies : nasal congestion. * ROS: D ERMATOLOGY: no R daxa. [...] Diagno stic Procedure: S pasm of Esphogus- [facility] ER 04/2015, Tylenol Overdose- [facility] 07/17/2020. * Family History: F ather: unknown, Adopted has no history. M other: unknown. C deejay: alive. 1 son(s) , 1 daughter(s) - [...] orally 2 times a day , Taking Lactulose 10 GM/15ML Solution 15 ml as needed Orally Once a day , Taking Liothyronine Sodium 5 MCG Tablet 1 tablet on an empty stomach Orally Two times a day , Taking Moxifloxacin HCl 0.5 % Solution 1 drop into affected eye Ophthalmic Three times a day , Taking Levothyroxine Sodium 88 MCG Tablet Take 1 tablet by mouth once daily for 90 days , Medication List reviewed and reconciled with the patient * Allergies: P enicillins: hives and lost consciousness, Demerol: hives; itchy, Midazolam: hives itchy, Clindamycin: sick, rash, Percocet, oxyCODONE. Objective: * Vitals: W t:134.2, Temp:98.4, BP:130/60, HR:69, O2 Sat:98% on RA, Nurse:JIM, Ht: 66, BMI:21.66. * Examination: E NT/Respiratory: General Appearance: N AD. E ars: a uditory canals normal bilaterally, TM's WNL. N ose : n ormal, no lesions, nares patent. O ral cavity :? erythema without exudate on pharynx. N [place] : n o cervical lymphadenopathy. H eart : RRR, normal S1 S2, no murmurs. L ungs: c lear to auscultation bilaterally. A bdomen : BS present, soft, nontender. Assessment: * Assessment: 1. A amberly URI - J06.9 (Primary) 2 . G lycosuria - R81 Plan: * Treatment: Value Reference Range w bc 4.8 3.5 - 10 * l ym 13.4% 15 - 50 * m id 3.5% 2 - 15 * g ran 83.1% 35 - 80 * r bc 4.21 3.5 - 5.5 * h gb 13.1 11.5 - 16.5 * h ct 39.4 35 - 55 * m cv 93.4 75 - 100 * m ch 31.0 25 - 35 * m chc 33.2 31 - 38 * p lat 158 100 - 400 * Amanda De La Cruz 01/02/2024 12:00: 18 PM > , Provider reviewed results while patient in office.Ginger Quarles 01/02/2024 12:38:19 PM > 2.?Glycosuria?LAB: Urinalysis - Inhouse (Collection Date & Time - 01/01/2024)* Value Reference Range C olor/Clarity dark/laura * L euk neg * N itrite neg * U robili 3.2 * P rotein trace * p H 6.0 * B lood neg * S p. Gr. 1.020 * K etone 1+ * B abiel neg * G pema neg * Tiesha Gaming 01/01/2024 3:13 :21 PM > Provider reviewed results while patient in office.Ginger Quarles 01/02/2024 12:38:10 PM > Notes: U/A has protein and ketones but no glucose. Will increase water intake and recheck in 1 week.?? * Procedure Codes: 9 4760 [place], [address] Urinalysis, no micro, 18423 CAPILLARY BLOOD DRAW, 36193 CBC WITH AUTO DIFF * Follow Up: d rop of urine in 1 week * Images: Billing Information: * Visit Code: 32507 Office Visit, Est Pt., Level 3. * Procedure Codes: [address] [place]. [address] Urinalysis, no micro. 87626 CAPILLARY BLOOD DRAW. 26937 CBC WITH AUTO DIFF. * Electronic signature of LUIS Chamorro on 02/03/2025 at 02:58 PM EST Sign off status: Pending * Provider: LUIS Alaniz Date: 1 Generated for Printi ng/Faxing/eTransmitting on: 04/05/2024 02:58 PM EST History and Physical Notes * HPI (History of Present Illness) Category Sub-Category Detail Notes Category Not es ENT/respiratory sore throat nasal congestion Urology frequent urination large amount, small amount. Pt sts it seems to go in and out Examination Category Sub-Category Detail Notes Category Not es ENT/Respiratory Oral cavity : erythema without exudate on pharynx Ears: auditory canals norm al bilaterally, TM's WNL Neck : no cervical lymphade nopathy Heart : RRR, normal S1 S2, n o murmurs Lungs: clear to auscultatio n bilaterally Abdomen : BS present, soft, no ntender General Appearance: NAD Nose : normal, no lesions, nares patent
--- OUTSIDE RECORDS SUMMARY | 2024-01-14 06:30 | XMS_ITS ---
Author Organization [facility] Address [address] [facility] [address] [place] [address] [place] [phone] Care Team Providers Care Mail Carriers Supervisor Name Role Phone TaniaPalomaMik Primary Care Provider Allergies Allergen (clinical drug ingredient) Drug/Non Drug [...] hives and lost consciousness Drug Allergy Active REASON FOR VISIT body aches Medications Medication SIG (Take, Route, Frequency, Duration) Notes Start Date End Date Status Vitamin B12 100 MCG as directed Orally Active Slow Fe 142 (45 Fe) MG 1 tab(s) orally o nce a day Active Vitamin D3 50 MCG (2000 UT) 2 cap(s) ora lly once a day Active Memantine HCl 5 MG 1 tab(s) orally 2 ti mes a day Active Lactulose 10 GM/15ML 15 ml as needed Ora lly Once a day Active Rivastigmine 4.6 MG/24HR 1 patch to skin Transdermal Once a day; Duration: 30 day(s) Active Probiotic Blend - as directed Orally Active Magnesium Citrate - as directed Orally Active Magnesium Malate - as directed Active Citracal Maximum Plus - as directed Orally Active Liothyronine Sodium 5 MCG 1 tablet on an empty stomach Orally Two times a day; Duration: 30 days Active Moxifloxacin HCl 0.5 % 1 drop into affec zoie eye Ophthalmic Three times a day 12/18/2023 Active Levothyroxine Sodium 88 MCG Take 1 table t by mouth once daily for 90 days; Duration: 90 Active Vital Signs Blood pressure systolic 126 mm Hg 01/14/20 24 Blood pressure diastolic 64 mm Hg 024 Heart Rate 65 /min 01/14/2024 Height 66 in 01/14/2024 Weight 130.4 lbs 01/14/2024 BMI 21.04 kg/m2 01/14/2024 Encounters Encounter Location Date Provider Diagnosis [facility] [address] [place], [place] [id number] 01/14/2024 Mik Marin Other fatigue R53.83 Assessments Encounter Date Diagnosis (ICD Code) Assessment Notes Treatment Notes Treatment Clinical Notes Section Notes 01/14/2024 Other fatigue (ICD-10 - R53.83) Monitor for now, call with any new symptoms Plan Of Treatment Treatment Notes Assessment Notes Other fatigue Monitor for now, hailey l with any new symptoms Next Appt Details Follow Up: via phone to repo rt progress, Reason: Progress Notes * PATSY CANCHOLAOB: (69 yo F)Acc No.[id number]:01/14/2024 Progress Notes Patient: KEENAN TRINIDAD Provider: Paul Marin M.D. :1955 A ge:68 Y S ex:Female Date:01/14/2024 Address:[address] [place], [place] [id number] Subjective: * Chief Complaints: * 1 . Body aches. * HPI: R heumatology: 68 year old female presents with c/o fatigue P t's states that pt has been really tired and achey lately . Pt has been taking 2-3 naps during the day and she typically only takes on nap. Pt's states that pt s tarted on Rivastigmine patch on 01/01 and he is wondering if that could be causing fatigue and aches . * ROS: D ERMATOLOGY: no R daxa. n o H laci. G ASTROENTEROLOGY: no N ausea. n o V omiting. U ROLOGY: no D ifficulty urinating. n [...] Diagno stic Procedure: S pasm of Esphogus- [facility] ER 04/2015, Tylenol Overdose- [facility] ER 07/17/2020. * Family [...] ,Years: , Determination:. * Medications: T aking Rivastigmine 4.6 MG/24HR Patch 24 Hour 1 patch to skin Transdermal Once a day , Taking Probiotic Blend - Capsule as directed Orally [...] mouth once daily for 90 days , Discontinued Zithromax Z-Fox 250 MG Tablet as directed Orally once daily , Medication List reviewed and reconciled with the patient * Allergies: P enicillins: hives and lost consciousness, Demerol: hives; itchy, Midazolam: hives itchy, Clindamycin: sick, rash, Percocet, oxyCODONE. Objective: * Vitals: W t:130.4, Temp:98.3, BP:126/64, HR:65, Nurse:louis, Ht: 66, BMI:21.04. * Examination: G eneral Examination: General Appearance: N AD, quiet, will answer questions with simple responses. H eart: R SR. L ungs: c lear to auscultation. P eripheral pulses: n ormal (2+) bilaterally. E xtremities: n o leg edema. Assessment: * Assessment: 1. O ther fatigue - R53.83 (Primary) Plan: * Treatment: * Procedure Codes: G 2211 Complex e/m visit add on * Follow Up: v ia phone to report progress * Images: Billing Information: * Visit Code: 54278 Office Visit, Est Pt., Level 3. * Procedure Codes: G2211 Complex e/m visit add on. * Electronic signature of Frances Marin MD on 02/03/2025 at 02:55 PM EST Sign off status: Pending * Provider: Paul Marin M.D. Date: Generated for Hugh zaldivar/Katlyn/Tsering on: 04/05/2024 02:55 PM EST History and Physical Notes * HPI (History of Present Illness) Category Sub-Category Detail Notes Category Not es Rheumatology fatigue Pt's sta yasemin that pt has been really tired and achey lately . Pt has been taking 2-3 naps during the day and she typically only takes on nap. Pt's states that pt started on Rivastigmine patch on 01/01 and he is wondering if that could be causing fatigue and aches Examination Category Sub-Category Detail Notes Category Not es General Examination Heart: RSR Lungs: clear to auscultatio n Extremities: no leg edema General Appearance: NAD, quiet, will ans wer questions with simple responses Peripheral pulses: normal (2+) bilatera lly
--- OUTSIDE RECORDS SUMMARY | 2024-03-03 06:15 | XMS_ITS ---
[facility] [address] [facility] [address] [place] [address] [place] [id number] Care Team Providers Care Telecom Network Manager Name Role Phone Mik Marin Primary Care Provider Allergies Allergen (clinical drug [...] consciousness Drug Allergy Active REASON FOR VISIT [facility] ER f/u; staple removal Medications Medication SIG (Take, Route, Frequency, Duration) Notes Start Date End Date Status Rivastigmine 4.6 MG/24HR 1 patch to skin Transdermal Once a day; Duration: 30 day(s) Active Levothyroxine Sodium 88 MCG Take 1 table t by mouth once daily for 90 days; Duration: 90 Active Moxifloxacin HCl 0.5 % 1 drop into affec zoie eye Ophthalmic Three times a day 12/18/2023 Active Constulose 10 GM/15ML TAKE 15 ML BY MOUT H ONCE DAILY NEEDED; Duration: 30 Active Liothyronine Sodium 5 MCG 1 tablet on an empty stomach Orally Two times a day; Duration: 90 days Active Memantine HCl 5 MG 1 tab(s) orally 2 ti mes a day Active Vitamin D3 50 MCG (1999) 2 cap(s) ora lly once a day Active Slow Fe 142 (45 Fe) MG 1 tab(s) orally o nce a day Active Vitamin B12 100 MCG as directed Orally Active Citracal Maximum Plus - as directed Orally Active Probiotic Blend - as directed Orally Active Magnesium Malate - as directed Active Magnesium Citrate - as directed Orally Active Vital Signs Blood pressure systolic 132 mm Hg 03/03/20 24 Blood pressure diastolic 70 mm Hg 024 Heart Rate 68 /min 03/03/2024 Height 66 in 03/03/2024 Weight 132.6 lbs 03/03/2024 BMI 21.40 kg/m2 03/03/2024 Encounters Encounter Location Date Provider Diagnosis [facility] [address] [place] [id number] 03/03/2024 Mik Marin Removal of staple Z48.02 Assessments Encounter Date Diagnosis (ICD Code) Assessment Notes Treatment Notes Treatment Clinical Notes Section Notes 03/03/2024 Removal of staple (ICD-10 - Z48.02) Plan Of Treatment Next Appt Details Follow Up: prn, Reason: Procedure Notes * Category Sub-Category Detail Notes Suture Removal rajeev removed without difficul ty total of 6 Progress Notes * PATSY CANCHOLAOB: 4 (69 yo F)Acc No.[id number]:03/03/2024 Progress Notes Patient: KEENAN TRINIDAD Provider: Paul Marin M.D. :1955 A ge:68 Y S ex:Female Date:03/03/2024 Address:[address] [place], [place] [id number] Subjective: * Chief Complaints: * 1 . [facility] ER f/u; staple removal. * HPI: H PI: 68 year old female presents with c/o Here for follow up on:?02/22/2024 [facility] er visit, see pt docs. Pt went to er due to lt side of head laceration from fall. Pt did get rajeev and is to have them removed today. Pt was unable to recall what caused her to fall but her thinks she may have fainted . Pt's states that pt was wearing her outside clothes inside the house and he thinks pt got too hot. * ROS: C ARDIOLOGY: no D izziness. n o C hest pain. G ASTROENTEROLOGY: no N ausea. n o [...] Diagno stic Procedure: S pasm of Esphogus- [facility] ER 04/2015, Tylenol Overdose- [facility] ER 07/17/2020. * Family History: F ather: [...] day , Taking Vitamin D3 50 MCG (1999 UT) Capsule 2 cap(s) orally once a day , Taking Memantine HCl 5 MG Tablet 1 tab(s) orally 2 times a day , Taking Moxifloxacin HCl 0.5 % Solution 1 drop into affected eye Ophthalmic Three times a day , Taking Levothyroxine Sodium 88 MCG Tablet Take 1 tablet by mouth once daily for 90 days , Taking Liothyronine Sodium 5 MCG Tablet 1 tablet on an empty stomach Orally Two times a day , Taking Constulose 10 GM/15ML Solution TAKE 15 ML BY MOUTH ONCE DAILY NEEDED , Medication List reviewed and reconciled with the patient * Allergies: P enicillins: hives and lost consciousness, Demerol: hives; itchy, Midazolam: hives itchy, Clindamycin: sick, rash, Percocet, oxyCODONE. Objective: * Vitals: W t:132.6, Temp:98.1, BP:132/70, HR:68, Nurse:louis, Ht: 66, BMI:21.40. * Examination: G eneral Examination: General Appearance: N AD. S kin: l eft lateral scalp with a well healed skin wound, [address] Assessment: * Assessment: 1. R emoval of staple - Z48.02 (Primary) Plan: * Treatment: * Procedures: S uture Removal: rajeev removed without difficulty t otal of 6. ? * Procedure Codes: G 2211 Complex e/m visit add on * Follow Up: p rn * Images: Billing Information: * Visit Code: 09909 Office Visit, Est Pt., Level 3. * Procedure Codes: G2211 Complex e/m visit add on. * Electronic signature of Frances Marin MD on 02/03/2025 at 02:55 PM EST Sign off status: Pending * Provider: Paul Marin M.D. Date: 05/04/2023 Generated for Hugh zaldivar/Katlyn/Carmellaitting on: 04/05/2024 02:55 PM EST History and Physical Notes * HPI (History of Present Illness) Category Sub-Category Detail Notes Category Not es HPI Here for follow up on: 4 [facility] er visit, see pt docs. Pt went to er due to lt side of head laceration from fall. Pt did get rajeev and is to have them removed today. Pt was unable to recall what caused her to fall but her thinks she may have fainted . Pt's states that pt was wearing her outside clothes inside the house and he thinks pt got too hot Examination Category Sub-Category Detail Notes Category Not es General Examination General Appearance: NAD Skin: left lateral scalp w ith a well healed skin wound, [address]
--- OUTSIDE RECORDS SUMMARY | 2024-03-05 05:30 | XMS_ITS ---
[facility] Organization [facility] Address [address] [facility] [address] [place] [address] [place] [phone] Care Team Providers Care Drop Worker Name Role Phone TimberPaloma clineian Primary Care Provider Allergies Allergen (clinical drug [...] consciousness Drug Allergy Active REASON FOR VISIT Annual physical Medications Medication SIG (Take, Route, Frequency, Duration) Notes Start Date End Date Status Rivastigmine 9.5 MG/24HR 1 patch to skin Transdermal Once a day Active Probiotic Blend - as directed Orally Active Constulose 10 GM/15ML TAKE 15 ML BY MOUT H ONCE DAILY NEEDED; Duration: 30 Active Levothyroxine Sodium 88 MCG Take 1 table t by mouth once daily for 90 days Active Liothyronine Sodium 5 MCG 1 tablet on an empty stomach Orally Two times a day Active Vitamin B12 100 MCG as directed Orally Active Slow Fe 142 (45 Fe) MG 1 tab(s) orally o nce a day Active Vitamin D3 50 MCG (2000 UT) 2 cap(s) ora lly once a day Active Memantine HCl 5 MG 1 tab(s) orally 2 ti mes a day Active Citracal Maximum Plus - as directed Orally Active Magnesium Citrate - as directed Orally Active Magnesium Malate - as directed Active Vital Signs Blood pressure systolic 130 mm Hg 03/05/20 24 Blood pressure diastolic 70 mm Hg 024 Heart Rate 78 /min 03/05/2024 Height 66 in 03/05/2024 Weight 131 lbs 03/05/2024 BMI 21.14 kg/m2 03/05/2024 Encounters Encounter Location Date Provider Diagnosis [facility] [address] [place] [phone] 03/05/2024 Mik Marin Acquired hypothyroid ism E03.9 Assessments Encounter Date Diagnosis (ICD Code) Assessment Notes Treatment Notes Treatment Clinical Notes Section Notes 03/05/2024 Acquired hypothyroidism (ICD-10 - E03.9) Plan Of Treatment Medication Medication Name Sig Start Date Stop Date Notes Levothyroxine Sodium 88 MCG Take 1 table t by mouth once daily for 90 days Liothyronine Sodium 5 MCG 1 tablet on an empty stomach Orally Two times a day Next Appt Details Follow Up: 6 Months, Reason: Progress Notes * EDNAGABRIELLE CARDENASBIANCAOB: 4 (69 yo F)Acc No.[id number]:03/05/2024 Physical Patient: KEENAN TRINIDAD Provider: Paul Marin M.D. :1955 A ge:68 Y S ex:Female Date:03/05/2024 Address:[address] [place] [address] [place]-[id number] Subjective: * Chief Complaints: * 1 . Annual physical. * HPI: H PI: 68 year old female presents with c/o Patient is here today for?Annual physical. Pt is not fasting. Pt is doing well and does not have any concerns today. * ROS: D ERMATOLOGY: no R daxa. [...] Diagno stic Procedure: S pasm of Esphogus- [facility] 04/2015, Tylenol Overdose- [facility] 07/17/2020. * Family History: F ather: [...] , Determination:. * Medications: T aking Rivastigmine 9.5 MG/24HR Patch 24 Hour 1 patch to [...] ML BY MOUTH ONCE DAILY NEEDED , Discontinued Moxifloxacin HCl 0.5 % Solution 1 drop into affected eye Ophthalmic Three times a day , Medication List reviewed and reconciled with the patient * Allergies: P enicillins: hives and lost consciousness, Demerol: hives; itchy, Midazolam: hives itchy, Clindamycin: sick, rash, Percocet, oxyCODONE. Objective: * Vitals: W t:131, Temp:98.0, BP:130/70, HR:78, Nurse:louis, Ht: 66, BMI:21.14. * Examination: G eneral Examination: General Appearance: N AD, quiet, will answer questions with simple responses. H eart: R SR. L ungs: c lear to auscultation. P eripheral pulses: n ormal (2+) bilaterally. E xtremities: n o leg edema. Assessment: * Assessment: 1. A cquired hypothyroidism - E03.9 (Primary) Plan: * Treatment: * Procedure Codes: G 2211 Complex e/m visit add on * Follow Up: 6 Months * Images: Billing Information: * Visit Code: 08340 Office Visit, Est Pt., Level 3. * Procedure Codes: G2211 Complex e/m visit add on. * Electronic signature of Frances Marin MD on 02/03/2025 at 02:56 PM EST Sign off status: Pending * Provider: Paul Marin M.D. Date: 05/06/2023 Generated for Hugh zaldivar/Katlyn/eTransmitting on: 04/05/2024 02:56 PM EST History and Physical Notes * HPI (History of Present Illness) Category Sub-Category Detail Notes Category Not es HPI Patient is here today for Annual physical. Pt is not fasting. Pt is doing well and does not have any concerns today Examination Category Sub-Category Detail Notes Category Not es General Examination Heart: RSR Lungs: clear to auscultatio n Extremities: no leg edema General Appearance: NAD, quiet, will ans wer questions with simple responses Peripheral pulses: normal (2+) bilatera lly
--- OUTSIDE RECORDS SUMMARY | 2024-04-14 05:30 | XMS_ITS ---
Author [facility] [address] [facility] [address] [place] [address] [place] [phone] Care Team Providers Care Sort Line Worker Name Role Phone Tania Mik Primary Care Provider Allergies Allergen (clinical drug [...] Active Results Component Value Reference Range Notes CBC Fingerstick (in house) Reviewed date:04/15/2024 08:52:48 AM Interpretation: Performing Lab: Notes/Report: wbc 5.2 3.5 - 10 lym 16.0% 15 - 50 mid 4.8% 2 - 15 gran 79.2% 35 - 80 rbc 4.20 3.5 - 5.5 hgb 13.1 11.5 - 16.5 hct 38.8 35 - 55 mcv 92.3 75 - 100 mch 31.2 25 - 35 mchc 33.8 31 - 38 plat 130 100 - 400 REASON FOR VISIT Vomiting Medications Medication SIG (Take, Route, Frequency, Duration) Notes Start Date End Date Status Citracal Maximum Plus - as directed Orally Active Magnesium Malate - as directed Active Vitamin B12 100 MCG as directed Orally Active Magnesium Citrate - as directed Orally Active Probiotic Blend - as directed Orally Active Ondansetron HCl 4 MG 1 tablet as needed Orally Three times a day 04/14/2024 Active Liothyronine Sodium 5 MCG 1 tablet on an empty stomach Orally Two times a day; Duration: 90 days Active Rivastigmine 9.5 MG/24HR 1 patch to skin Transdermal Once a day Active Memantine HCl 5 MG 1 tab(s) orally 2 ti mes a day; Duration: 90 days Active Constulose 10 GM/15ML TAKE 15 ML BY MOUT H ONCE DAILY NEEDED; Duration: 30 Active Slow Fe 142 (45 Fe) MG 1 tab(s) orally o nce a day Active Levothyroxine Sodium 88 MCG 1 tablet in the morning on an empty stomach Orally Once a day; Duration: 90 days Active Vitamin D3 50 MCG (1999 UT) 2 cap(s) ora lly once a day Active Vital Signs Blood pressure systolic 120 mm Hg 04/14/19 25 Blood pressure diastolic 80 mm Hg 025 Heart Rate 60 /min 04/14/2024 Height 66 in 04/14/2024 Weight 134.6 lbs 04/14/2024 BMI 21.72 kg/m2 04/14/2024 Encounters Encounter Location Date Provider Diagnosis [facility] [address] [place] [phone] 04/14/2024 Mik Marin GE (gastroenteritis) K52.9 Assessments Encounter Date Diagnosis (ICD Code) Assessment Notes Treatment Notes Treatment Clinical Notes Section Notes 04/14/2024 GE (gastroenteriti s) (ICD-10 - K52.9) Plan Of Treatment Medication Medication Name Sig Start Date Stop Date Notes Ondansetron HCl 4 MG 1 tablet as needed Orally Three times a day 04/14/2024 Next Appt Details Follow Up: via phone to repo rt progress, Reason: Progress Notes * PATSY CANCHOLAOB: 4 (69 yo F)Acc No.[id number]:04/14/2024 Progress Notes Patient: KEENAN TRINIDAD Provider: Paul Marin M.D. :1955 A ge:69 Y S ex:Female Date:04/14/2024 Address:[address] [place] [address], [place]-[id number] Subjective: * Chief Complaints: * 1 . Vomiting. * HPI: G astroenterology: 69 year old female presents with c/o Nausea. c/o Vomiting?The pt's states the pt started yesterday feeling tired. Pt's states the pt and he shared a meal and is wondering if they could have some food poisoning. Pt has had diarrhea and nausea but no vomiting. Pt has not had any food since last night but has had 8 ounce of fluids. c/o Diarrhea. * ROS: C ARDIOLOGY: no C hest pain. n o S hortness of breath. ? D ERMATOLOGY: no R daxa. n o H laci. U ROLOGY: no D ifficulty urinating. n [...] Diagno stic Procedure: S pasm of Esphogus- [facility] 04/2015, Tylenol Overdose- [facility] 07/17/2020. * Family History: F ather: unknown, Adopted has no history. M other: unknown. C hilrosie: alive. 1 son(s) , 1 daughter(s) - [...] cap(s) orally once a day , Taking Levothyroxine Sodium 88 MCG Tablet 1 tablet in the morning on an empty stomach Orally Once a day , Taking Liothyronine Sodium 5 MCG Tablet 1 tablet on an empty stomach Orally Two times a day , Taking Constulose 10 GM/15ML Solution TAKE 15 ML BY MOUTH ONCE DAILY NEEDED , Taking Memantine HCl 5 MG Tablet 1 tab(s) orally 2 times a day , Medication List reviewed and reconciled with the patient * Allergies: P enicillins: hives and lost consciousness, Demerol: hives; itchy, Midazolam: hives itchy, Clindamycin: sick, rash, Percocet, oxyCODONE. Objective: * Vitals: W t:134.6, Temp:97.6, BP:120/80, HR:60, Nurse:MICHELLE, Ht: 66, BMI:21.72. * Examination: G astroenterology: General Appearance: p leasant, NAD. O ral cavity: n ormal. S clera: a nicteric. H eart sounds: r egular, normal S1 S2. L ungs: c lear, no rales or wheezes. A bdomen: B S present, soft, nontender, no guarding or rigidity, no masses felt. Assessment: * Assessment: 1. G E (gastroenteritis) - K52.9 (Primary) Plan: * Treatment: Value Reference Range w bc 5.2 3.5 - 10 * l ym 16.0% 15 - 50 * m id 4.8% 2 - 15 * g ran 79.2% 35 - 80 * r bc 4.20 3.5 - 5.5 * h gb 13.1 11.5 - 16.5 * h ct 38.8 35 - 55 * m cv 92.3 75 - 100 * m ch 31.2 25 - 35 * m chc 33.8 31 - 38 * p lat 130 100 - 400 * Beverly Freitas 04/14/2024 11: 04:39 AM > , Provider reviewed results while patient in office. * Procedure Codes: G 2211 Complex e/[place], [address] CAPILLARY BLOOD DRAW, 57283 CBC WITH AUTO DIFF * Follow Up: v ia phone to report progress * Images: Billing Information: * Visit Code: 05729 Office Visit, Est Pt., Level 3. * Procedure Codes: G2211 Complex e/[place]. [address] CAPILLARY BLOOD DRAW. 23474 CBC WITH AUTO DIFF. * Electronic signature of Frances Marin MD on 02/03/2025 at 02:56 PM EST Sign off status: Pending * Provider: Paul Marin M.D. Date: 0 04/14/2024 Generated for Hugh zaldivar/Katlyn/eTransmitting on: 04/05/2024 02:56 PM EST History and Physical Notes * HPI (History of Present Illness) Category Sub-Category Detail Notes Category Not es Gastroenterology Vomiting The pt's husban d states the pt started yesterday feeling tired. Pt's states the pt and he shared a meal and is wondering if they could have some food poisoning. Pt has had diarrhea and nausea but no vomiting. Pt has not had any food since last night but has had 8 ounce of fluids Diarrhea Nausea Examination Category Sub-Category Detail Notes Category Not es Gastroenterology Oral cavity: normal Sclera: anicteric Heart sounds: regular, normal S1 S 2 Lungs: clear, no rales or w heezes Abdomen: BS present, soft, no ntender, no guarding or rigidity, no masses felt General Appearance: pleasant, NAD
--- OUTSIDE RECORDS SUMMARY | 2024-06-26 06:15 | XMS_ITS ---
[facility] Address [address] [place] [id number] Care Team Providers Care Magician/Illusionist Name Role Phone Bristol Mik Primary Care Provider Allergies Allergen (clinical [...] Active Results Component Value Reference Range Notes H-BMP Reviewed date:07/08/2024 01:05:09 PM Interpretation: Performing Lab: Notes/Report: Cardiac Event Monitor - 7 da y Reviewed date:07/24/2024 08:42:54 AM Interpretation: Performing Lab: Notes/Report: REASON FOR VISIT F/U [facility] ER Medications Medication SIG (Take, Route, Frequency, Duration) Notes Start Date End Date Status Memantine HCl 5 MG 1 tab(s) orally 2 ti mes a day; Duration: 90 days Active Ondansetron HCl 4 MG 1 tablet as needed Orally Three times a day 04/14/2024 Active Constulose 10 GM/15ML TAKE 15 ML BY MOUT H ONCE DAILY NEEDED; Duration: 30 Active Levothyroxine Sodium 88 MCG 1 tablet in the morning on an empty stomach Orally Once a day; Duration: 90 days Active Liothyronine Sodium 5 MCG 1 tablet on an empty stomach Orally Two times a day; Duration: 90 days Active Citracal Maximum Plus - as directed Orally Active Vitamin B12 100 MCG as directed Orally Active Magnesium Malate - as directed Active Slow Fe 142 (45 Fe) MG 1 tab(s) orally o nce a day Active Vitamin D3 50 MCG (1999 UT) 2 cap(s) ora lly once a day Active Rivastigmine 9.5 MG/24HR 1 patch to skin Transdermal Once a day Active Probiotic Blend - as directed Orally Active Magnesium Citrate - as directed Orally Active Problems Problem Type SNOMED Code ICD Code Onset Dates Problem Status W/U Status Risk Notes Problem Incomplete right bundle branch block (006758098) Incomplete right bundle branch block (I45.10) Active confirmed Vital Signs Blood pressure systolic 130 mm Hg 06/27/19 25 Blood pressure diastolic 82 mm Hg 025 Heart Rate 61 /min 06/26/2024 Height 66 in 06/26/2024 Weight 138 lbs 06/26/2024 BMI 22.27 kg/m2 06/26/2024 Encounters Encounter Location Date Provider Diagnosis [facility] [address], [place] [id number] 06/26/2024 Mik Marin Recurrent syncope R5 5 ; Incomplete right bundle branch block I45.10 ; Hyponatremia E87.1 ; Acquired hypothyroidism E03.9 ; Pick's disease G31.01 ; 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 and BMI 22.0-22.9, adult Z68.22 Assessments Encounter Date Diagnosis (ICD Code) Assessment Notes Treatment Notes Treatment Clinical Notes Section Notes 06/26/2024 Recurrent syncope (ICD-10 - R55) 06/26/2024 Incomplete right bundle branch block (ICD-10 - I45.10) 06/26/2024 Hyponatremia (ICD-10 - E87.1) 06/26/2024 Acquired hypothyroidism (ICD-10 - E03.9) 06/26/2024 Pick's disease (ICD-10 - G31.01) 06/26/2024 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 :1955 A ge:69 Y S ex:Female Date:06/26/2024 Address:[facility] [address] [place], [id number] Subjective: * Chief Complaints: * 1 . F/U [facility] ER. * HPI: H PI: 69 year old female presents with c/o Here for follow up on:?06/23 and 06/24/2024 [facility] ER visits. Pt had syncope episodes and was taken to ER both times. Pt did have injury on 06/23 from falling after a nd landing on rt side. Pt dx with rt humerus fracture. * ROS: D ERMATOLOGY: no R daxa. [...] Procedure: S pasm of Esphogus- [facility] ER 04/2015, Tylenol Overdose- [facility] ER 07/17/2020. * Family History: F [...] orally 2 times a day , Taking Ondansetron HCl 4 MG Tablet 1 tablet as needed Orally Three times a day , Medication List reviewed and reconciled with the patient * Allergies: P enicillins: hives and lost consciousness, Demerol: hives; itchy, Midazolam: hives itchy, Clindamycin: sick, rash, Percocet, oxyCODONE. Objective: * Vitals: W t:138, Temp:97.8, BP:130/82, HR:61, Nurse:louis, Ht: 66, BMI:22.27. * Examination: G eneral Examination: General Appearance: N AD, quiet, will answer questions with simple responses. H eart: R SR. L ungs: c lear to auscultation. P eripheral pulses: n ormal (2+) bilaterally. E xtremities: n o leg edema, holds right arm still. ? Assessment: * Assessment: 1. R ecurrent syncope - R55 (Primary) 2 . I ncomplete right bundle branch block - I45.10 3 . H yponatremia - E87.1 4 . A cquired hypothyroidism - E03.9 5 . P ick's disease - G31.01 6 . 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 B MO 22.0-22.9, adult - Z68.22? Plan: * Treatment: 2.?Incomplete right bundle branch block?Imaging: Cardiac Event Monitor - 7 day (Performed Date - 07/09/2024)* Sadie Vincent 07/24/2024 08:42 :49 AM > See phone encounter 3.?Hyponatremia?LAB: H-BMP (Collection Date & Time - 07/08/2024)* see duplicate order * Procedure Codes: G 2211 Complex e/m visit add on, 3075F SYST BP GE 130 - 139MM HG, 3079F DIAST BP 80-89 MM HG * Follow Up: v ia phone to report test results * Images: Billing Information: * Visit Code: 21510 Office Visit, Est Pt., Level 4. * Procedure Codes: G2211 Complex e/m visit add on. 3075F SYST BP GE 130 - 139MM HG. 3079F DIAST BP 80-89 MM HG. * Electronic signature of Frances Marin MD on 02/03/2025 at 02:57 PM EST Sign off status: Pending * Provider: Paul Marin M.D. Date: 0 06/26/2024 Generated for Hugh zaldivar/Katlyn/eTransmitting on: 1 04/05/2024 02:57 PM EST History and Physical Notes * HPI (History of Present Illness) Category Sub-Category Detail Notes Category Not es HPI Here for follow up on: 06/23 and 06/24/2024 [facility] ER visits. Pt had syncope episodes and was taken to ER both times. Pt did have injury on 06/23 from falling after and landing on rt side. Pt dx with rt humerus fracture Examination Category Sub-Category Detail Notes Category Not es General Examination Heart: RSR Lungs: clear to auscultatio n Extremities: no leg edema, holds right arm still General Appearance: NAD, quiet, will ans wer questions with simple responses Peripheral pulses: normal (2+) bilatera lly
--- OUTSIDE RECORDS SUMMARY | 2024-11-09 09:15 | XMS_ITS ---
[facility] Address [address] [facility] [address] [place] [address] ID [phone] Care Team Providers Care Seniour Insight Manager Name Role Phone Mik Marin Primary [...] Reference Range Notes Urinalysis - Inhouse Reviewed date:11/10/2024 08:20:32 AM Interpretation: Performing Lab: Notes/Report: Color/Clarity Yellow/Clear Leuk Trace Nitrite Neg Urobili 3.2 Protein 1+ pH 6.5 Blood Trace-Intact Sp. Gr. 1.015 Ketone Neg Bili Neg Gluc Neg REASON FOR VISIT not sleeping, Medications Medication SIG (Take, Route, Frequency, Duration) Notes Start Date End Date Status Liothyronine Sodium 5 MCG 1 tablet on an empty stomach Orally Two times a day; Duration: 90 days Active Memantine HCl 5 MG 1 tab(s) orally 2 ti mes a day; Duration: 90 days Active Nitrofurantoin Monohyd Macro 100 MG 1 capsule with food Orally every 12 hrs; Duration: 7 days 11/09/2024 Active Vitamin B12 100 MCG as directed Orally Active Levothyroxine Sodium 88 MCG 1 tablet in the morning on an empty stomach Orally Once a day; Duration: 90 days Active Constulose 10 GM/15ML TAKE 15 ML BY MOUT H ONCE DAILY NEEDED; Duration: 30 Active Slow Fe 142 (45 Fe) MG 1 tab(s) orally o nce a day Active Vitamin D3 50 MCG (1999 UT) 2 cap(s) ora lly once a day Active Citracal Maximum Plus - as directed Orally Active Magnesium Citrate - as directed Orally Active Magnesium Malate - as directed Active Rivastigmine 9.5 MG/24HR 1 patch to skin Transdermal Once a day Active Probiotic Blend - as directed Orally Active Problems Problem Type SNOMED Code ICD Code Onset Dates Problem Status W/U Status Risk Notes Problem Urinary incontinence (579886743) Urinary incontinence, unspecified type (R32) Active confirmed Vital Signs Blood pressure systolic 128 mm Hg 11/10/19 Blood pressure diastolic 70 mm Hg 025 Heart Rate 72 /min 11/09/2024 Height 66 in 11/09/2024 Weight 141.2 lbs 11/09/2024 BMI 22.79 kg/m2 11/09/2024 Encounters Encounter Location Date Provider Diagnosis [facility] [address] [facility] [address] [place], [place] [id number] 11/09/2024 Mik Marin Urinary incontinence , unspecified type R32 ; Hypogastric pain R10.2 ; Acute UTI N39.0 and BMI 22.0-22.9, adult Z68.22 Assessments Encounter Date Diagnosis (ICD Code) Assessment Notes Treatment Notes Treatment Clinical Notes Section Notes 11/09/2024 Urinary incontinence, unspecified type (ICD-10 - R32) 11/09/2024 Hypogastric pain (ICD-10 - R10.2) 11/09/2024 Acute UTI (ICD-10 - N39.0) 11/09/2024 BMI 22.0-22.9, adult (ICD-10 - Z68.22) Plan Of Treatment Medication Medication Name Sig Start Date Stop Date Notes Nitrofurantoin Monohyd Macro 100 MG 1 capsule with food Orally every 12 hrs; Duration: 7 days 11/09/2024 Next Appt Details Follow Up: via phone to repo rt progress, Reason: Progress Notes * AYSHA CANCHOLA: 4 (69 yo F)Acc No.[id number]:11/09/2024 Progress Notes Patient: KEENAN TRINIDAD Provider: Paul Marin M.D. :1955 A ge:69 Y S ex:Female Date:11/09/2024 Address:[facility] [address], [id number] Subjective: * Chief Complaints: * 1 . Not sleeping,. * HPI: U rology: 69 year old female presents with c/o frequent urination l arge amount. c/o Pressure. N eurology: c/o Sleep Disturbance P t states she has been having trouble sleeping and has been using the bathroom alot a t night. * ROS: C ARDIOLOGY: no D izziness. n o C hest pain. D ERMATOLOGY: no R daxa. n o H laci. G ASTROENTEROLOGY: no N ausea. n o V omiting. n o D iarrhea.?no C onstipation. * Medical History: H ypothryoidism, uses brand [...] of Esphogus- [facility] 04/2015, Tylenol Overdose- [facility] 07/17/2020. * Family History: F ather: unknown, Adopted has no history. M other: unknown. C hilen: alive. 1 son(s) , 1 daughter(s) - healthy. . * Social History: C URRENT TOBACCO USE: No S moking Status: Patient does NOT smoke. [...] stomach Orally Once a day , Taking Constulose 10 GM/15ML Solution TAKE 15 ML BY MOUTH ONCE DAILY NEEDED , Taking Memantine HCl 5 MG Tablet 1 tab(s) orally 2 times a day , Taking Liothyronine Sodium 5 MCG Tablet 1 tablet on an empty stomach Orally Two times a day , Discontinued Ondansetron HCl 4 MG Tablet 1 tablet as needed Orally Three times a day , Discontinued Metoprolol Succinate ER 25 MG Tablet Extended Release 24 Hour 1 tablet Orally Once a day , Medication List reviewed and reconciled with the patient * Allergies: P enicillins: hives and lost consciousness, Demerol: hives; itchy, Midazolam: hives itchy, Clindamycin: sick, rash, Percocet, oxyCODONE. Objective: * Vitals: W t: 141.2, Temp: 98.0, BP: 128/70, HR: 72, Nurse: pe, Ht: 66, BMI:22.79. * Examination: G eneral Examination: General Appearance: N AD, says a few words, all of the history is provided by her . H eart: R SR. L ungs: c lear to auscultation. A bdomen: b owel sounds present, soft and nontender. B ack: n o CVA tenderness. E xtremities: n o leg edema. Assessment: * Assessment: 1. U rinary incontinence, unspecified type - R32 (Primary) 2 . H ypogastric pain - R10.2 3 . A cute UTI - N39.0 4 . B MO 22.0-22.9, adult - Z68.22 Plan: * Treatment: Value Reference Range C olor/Clarity Yellow/Clear * L euk Trace * N itrite Neg * U robili 3.2 * P rotein 1+ * p H 6.5 * B lood Trace-Intact * S p. Gr. 1.015 * K etone Neg * B abiel Neg * G pema Neg * Amanda De La Cruz 11/09/2024 02:52: 48 PM EDT > Provider reviewed results while patient in office. 2.?Acute UTI? Start Nitrofurantoin Monohyd Macro Capsule, 100 MG, 1 capsule with food, Orally, every 12 hrs, 7 days, 14 Capsule, Refills 0.?? * Procedure Codes: G 2211 Complex e/[place], [address] Urinalysis, no micro, 1036F TOBACCO NON- USER, G8420 BMI<30 AND >=22 CALC & DOCU, G8783 BP SCR PRFRM RCMDD DEFIND SCR INTVL, G8752 MOST RECENT SYSTOLIC BP < 140MM HG, G8754 MOST RECENT DIASTOLIC BP < 90MM HG * Follow Up: v ia phone to report progress * Images: Billing Information: * Visit Code: 33357 Office Visit, Est Pt., Level 3. * Procedure Codes: G2211 Complex e/[place]. [address] Urinalysis, no micro. 1036F TOBACCO NON-USER. G8420 BMI<30 AND >=22 CALC & DOCU. G8783 BP SCR PRFRM RCMDD DEFIND SCR INTVL. G8752 MOST RECENT SYSTOLIC BP < 140MM HG. G8754 MOST RECENT DIASTOLIC BP < 90MM HG. * Electronic signature of Frances Marin MD on 02/03/2025 at 02:55 PM EST Sign off status: Pending * Provider: Paul Marin M.D. Date: 0 11/09/2024 Generated for Rodriguezi ng/Katlyn/eTransmitting on: 04/05/2024 02:55 PM EST History and Physical Notes * HPI (History of Present Illness) Category Sub-Category Detail Notes Category Not es Neurology Sleep Disturbance Pt states she has been having trouble sleeping and has been using the bathroom alot at night Urology frequent urination large amount Pressure Examination Category Sub-Category Detail Notes Category Not es General Examination Heart: RSR Lungs: clear to auscultatio n Abdomen: bowel sounds present , soft and nontender Extremities: no leg edema General Appearance: NAD, says a few word s, all of the history is provided by her Back: no CVA tenderness
--- OUTSIDE RECORDS SUMMARY | 2024-11-17 10:15 | XMS_ITS ---
[facility] Organization [facility] Address [address] [facility] [place] [phone] Care Team Providers Care Instructor Of Spanish Name Role Phone Tania Mik Primary Care Provider Emily Daniels [phone] Allergies Allergen (clinical drug ingredient) Drug/Non Drug [...] Reference Range Notes Urinalysis - Inhouse Reviewed date:11/17/2024 09:54:27 PM Interpretation: Performing Lab: Notes/Report: Color/Clarity yellow/clear Leuk Neg Nitrite Neg Urobili 3.2 Protein Neg pH 6.5 Blood Neg Sp. Gr. 1.015 Ketone Neg Bili Neg Gluc Neg P-Culture, Urine Reviewed date:11/19/2024 09:33:14 AM Interpretation:No growth Performing Lab: Notes/Report: Test performed by [facility] [address] [place] [address] , [address], [place] [address] Waldo Marroquin MD, Load Dispatcher Local CLIA: [id number] Specimen Source Urine - Void Culture, Urine See Below Final Report : No growth REASON FOR VISIT F/U on UTI Medications Medication SIG (Take, Route, Frequency, Duration) Notes Start Date End Date Status Citracal Maximum Plus - as directed Orally Active Vitamin B12 100 MCG as directed Orally Active Slow Fe 142 (45 Fe) MG 1 tab(s) orally o nce a day Active Vitamin D3 50 MCG (1999 UT) 2 cap(s) ora lly once a day Active Levothyroxine Sodium 88 MCG 1 tablet in the morning on an empty stomach Orally Once a day; Duration: 90 days Active Magnesium Citrate - as directed Orally Active Magnesium Malate - as directed Active Rivastigmine 9.5 MG/24HR 1 patch to skin Transdermal Once a day Active Probiotic Blend - as directed Orally Active Nitrofurantoin Monohyd Macro 100 MG 1 capsule with food Orally every 12 hrs; Duration: 7 days 11/09/2024 Active Liothyronine Sodium 5 MCG 1 tablet on an empty stomach Orally Two times a day; Duration: 90 days Active Constulose 10 GM/15ML TAKE 15 ML BY MOUT H ONCE DAILY NEEDED; Duration: 30 Active Memantine HCl 5 MG 1 tab(s) orally 2 ti mes a day; Duration: 90 days Active Problems Problem Type SNOMED Code ICD Code Onset Dates Problem Status W/U Status Risk Notes Problem Overactive urinary bladder (disorder) (889979883) OAB (overactiv e bladder) (N32.81) Active confirmed Vital Signs Blood pressure systolic 124 mm Hg 11/18/19 25 Blood pressure diastolic 78 mm Hg 025 Heart Rate 70 /min 11/17/2024 Height 66 in 11/17/2024 Weight 140.6 lbs 11/17/2024 BMI 22.69 kg/m2 11/17/2024 Encounters Encounter Location Date Provider Diagnosis [facility] [address] [facility] [address] [place] [phone] 11/17/2024 Emily Daniels UTI (lower urinary tract infection) N39.0 and OAB (overactive bladder) N32.81 Assessments Encounter Date Diagnosis (ICD Code) Assessment Notes Treatment Notes Treatment Clinical Notes Section Notes 11/17/2024 UTI (lower urinary tract infection) (ICD-10 - N39.0) Will send urine for culture and sensitivity to confirm that the infection has resolved 11/17/2024 OAB (overactive bladder) (ICD-10 - N32.81) If urine culture is negative, consider treatment for overactive bladder Plan Of Treatment Treatment Notes Assessment Notes UTI (lower urinary tract infection) Will send urine for culture and sensitivity to confirm that the infection has resolved OAB (overactive bladder) If urine cultur e is negative, consider treatment for overactive bladder Next Appt Details Follow Up: via phone to repo rt test results, Reason: Progress Notes * GABRIELLE CANCHOLAEDOB: 4 (69 yo F)Acc No.[id number]:11/17/2024 Progress Notes Patient: KEENAN TRINIDAD Provider: Emily Daniels M.D. :1955 A ge:69 Y S ex:Female Date:11/17/2024 Address:[facility] [id number] Pcp:Mik Marin Subjective: * Chief Complaints: * 1 . F/U on UTI. * HPI: U rology: 69 year old female presents with c/o UTI P t's states finshed 7 day anitbotic on 11/16. Pt's states seems a little better but will still hold her stomach at times as if she is in discomfort. She is still having issues with incontinence at night and urinary frequency almost hourly during the day.. * ROS: D ERMATOLOGY: no R daxa. [...] Diagno stic Procedure: S pasm of Esphogus- [facility] 04/2015, Tylenol Overdose- [facility] 07/17/2020. * Family History: F [...] Orally Two times a day , Taking Nitrofurantoin Monohyd Macro 100 MG Capsule 1 capsule with food Orally every 12 hrs , Medication List reviewed and reconciled with the patient * Allergies: P enicillins: hives and lost consciousness, Demerol: hives; itchy, Midazolam: hives itchy, Clindamycin: sick, rash, Percocet, oxyCODONE. Objective: * Vitals: W t: 140.6, Temp: 98.3, BP: 124/78, HR: 70, Nurse: SF, Ht: 66, BMI:22.69. Assessment: * Assessment: 1. U TI (lower urinary tract infection) - N39.0 (Primary) 2 . O AB (overactive bladder) - N32.81 Plan: * Treatment: Value Reference Range C ulture, Urine See Below - * S pecimen Source Urine - Void - * Emily Daniels 11/19/2024 0 9:33:06 AM EDT > See phone encounter Notes: Will send urine for culture and sensitivity to confirm that the infection has resolved? 2.?OAB (overactive bladder)? Notes: If urine culture is negative, consider treatment for overactive bladder?? * Labs: * L ab: Urinalysis - Inhouse (Collection Date & Time - 11/17/2024) Value Reference Range C olor/Clarity yellow/clear * L euk Neg * N itrite Neg * U robili 3.2 * P rotein Neg * p H 6.5 * B lood Neg * S p. Gr. 1.015 * K etone Neg * B abiel Neg * G pema Neg * Amanda De La Cruz 11/17/2024 03:30:1 8 PM EDT > Provider reviewed results while patient in office. * Procedure Codes: G 2211 Complex e/[place], [address] Urinalysis, no micro * Follow Up: v ia phone to report test results * Images: Billing Information: * Visit Code: 30667 Office Visit, Est Pt., Level 3. * Procedure Codes: G2211 Complex e/[place]. [address] Urinalysis, no micro. * Electronic signature of Emily Daniels MD on 02/03/2025 at 02:56 PM EST Sign off status: Pending * Provider: Emily Daniels M.D. Date: 0 11/17/2024 Generated for Hugh zaldivar/Katlyn/eTransmitting on: 1 04/05/2024 02:56 PM EST History and Physical Notes * HPI (History of Present Illness) Category Sub-Category Detail Notes Category Not es Urology UTI Pt's sta yasemin finshed 7 day anitbotic on 11/16. Pt's states seems a little better but will still hold her stomach at times as if she is in discomfort. She is still having issues with incontinence at night and urinary frequency almost hourly during the day.
--- OUTSIDE RECORDS SUMMARY | 2025-01-18 08:30 | XMS_ITS ---
Author [facility] Address [address] [facility] [address] [place] [address] [place] [id number] Care Team Providers Care Internet Marketing Consultant Name Role Phone Tania Mik Primary Care Provider [phone] Allergies Allergen (clinical drug ingredient) Drug/Non Drug [...] consciousness Drug Allergy Active REASON FOR VISIT med change Medications Medication SIG (Take, Route, Frequency, Duration) Notes Start Date End Date Status Memantine HCl 5 MG 1 tab(s) orally 2 ti mes a day; Duration: 90 days Active Levothyroxine Sodium 88 MCG 1 tablet in the morning on an empty stomach Orally Once a day; Duration: 90 days Active Constulose 10 GM/15ML TAKE 15 ML BY MOUT H ONCE DAILY NEEDED; Duration: 30 Active Citracal Maximum Plus - as directed Orally Active Magnesium Malate - as directed Active Vitamin D3 50 MCG (2000 UT) 2 cap(s) ora lly once a day Active Slow Fe 142 (45 Fe) MG 1 tab(s) orally o nce a day Active Vitamin B12 100 MCG as directed Orally Active Probiotic Blend - as directed Orally Active Liothyronine Sodium 5 MCG 1 tablet on an empty stomach Orally Two times a day; Duration: 90 days Active Rivastigmine 9.5 MG/24HR 1 patch to skin Transdermal Once a day Active Magnesium Citrate - as directed Orally Active Problems Problem Type SNOMED Code ICD Code Onset Dates Problem Status W/U Status Risk Notes Problem Insomnia (635068260) Other insomnia (G47.09) Active confirmed Vital Signs Blood pressure systolic 118 mm Hg 01/19/20 25 Blood pressure diastolic 70 mm Hg 025 Heart Rate 76 /min 01/18/2025 Height 66 in 01/18/2025 Weight 140.6 lbs 01/18/2025 BMI 22.69 kg/m2 01/18/2025 Encounters Encounter Location Date Provider Diagnosis [facility] [address] [place] [phone] 01/18/2025 Mik Marin OAB (overactive bladder) N32.81 and Other insomnia G47.09 Assessments Encounter Date Diagnosis (ICD Code) Assessment Notes Treatment Notes Treatment Clinical Notes Section Notes 01/18/2025 OAB (overactive bladder) (ICD-10 - N32.81) 01/18/2025 Other insomnia (ICD-10 - G47.09) Trial of OTC melatonin Plan Of Treatment Medication Medication Name Sig Start Date Stop Date Notes Myrbetriq 50 MG 1 tablet Orally Once a day 11/19/2024 Treatment Notes Assessment Notes Other insomnia Trial of OTC melaton in Next Appt Details Follow Up: via phone to repo rt progress, Reason: Progress Notes * PATSY CANCHOLAOB: 4 (69 yo F)Acc No.[id number]:01/18/2025 Progress Notes Patient: SIGRID TRINIDAD Provider: Paul Marin M.D. :1955 A ge:69 Y S ex:Female Date:01/18/2025 Address:[facility] [address] [id number] Subjective: * Chief Complaints: * 1 . Med change. * HPI: H PI: 69 year old female presents with c/o Patient is here today for?Pt's states they are here today to follow up and see if they need to continue Myrbetriq. Pt's states they have not seen any improvement. Pt's also states he has noticed a decline in Sigrid being aware of her surrondings such as where rooms are in the house. * Medical History: H ypothryoidism, uses brand [...] Diagno stic Procedure: S pasm of Esphogus- [facility] 04/2015, Tylenol Overdose- [facility] 07/17/2020. * Family History: F [...] cap(s) orally once a day , Taking Constulose 10 GM/15ML Solution TAKE 15 ML BY MOUTH ONCE DAILY NEEDED , Taking Levothyroxine Sodium 88 MCG Tablet 1 tablet in the morning on an empty stomach Orally Once a day , Taking Memantine HCl 5 MG Tablet 1 tab(s) orally 2 times a day , Taking Liothyronine Sodium 5 MCG Tablet 1 tablet on an empty stomach Orally Two times a day , Taking Myrbetriq 50 MG Tablet Extended Release 24 Hour 1 tablet Orally Once a day , Discontinued Nitrofurantoin Monohyd Macro 100 MG Capsule 1 capsule with food Orally every 12 hrs , Medication List reviewed and reconciled with the patient * Allergies: P enicillins: hives and lost consciousness, Demerol: hives; itchy, Midazolam: hives itchy, Clindamycin: sick, rash, Percocet, oxyCODONE. Objective: * Vitals: W t: 140.6, Temp: 98.0, BP: 118/70, HR: 76, Nurse: NATHANAEL, Ht: 66, BMI:22.69. * Examination: G eneral Examination: General Appearance: N AD, quiet. Assessment: * Assessment: 1. O AB (overactive bladder) - N32.81 (Primary) 2 . O ther insomnia - G47.09 Plan: * Treatment: 2. O ther insomnia Notes: Trial of OTC melatonin * Procedure Codes: G 2211 Complex e/m visit add on * Follow Up: v ia phone to report progress * Images: Billing Information: * Visit Code: 86523 Office Visit, Est Pt., Level 3. * Procedure Codes: G2211 Complex e/m visit add on. * Electronic signature of Frances Marin MD on 02/03/2025 at 02:57 PM EST Sign off status: Pending * Provider: Paul Marin M.D. Date: 03/20/2024 Generated for Hugh zaldivar/Katlyn/Tsering on: 04/05/2024 02:57 PM EST History and Physical Notes * HPI (History of Present Illness) Category Sub-Category Detail Notes Category Not es HPI Patient is here today for Pt's h usband states they are here today to follow up and see if they need to continue Myrbetriq. Pt's states they have not seen any improvement. Pt's also states he has noticed a decline in Sigrid being aware of her surrondings such as where rooms are in the house Examination Category Sub-Category Detail Notes Category Not es General Examination General Appearance: NAD, quiet
--- OUTSIDE RECORDS SUMMARY | 2025-02-03 14:55 | XMS_ITS | Patient Health Record ---
[facility] [address] [place] [id number] Care Team Providers Care Welfare Centre Manager Name Role Phone Tania Mik Primary Care Provider Emily Daniels [phone] Allergies Allergen (clinical drug ingredient) Drug/Non Drug [...] 1.015 Ketone Neg Bili Neg Gluc Neg Cardiac Event Monitor - 7 da y Reviewed date:07/24/2024 08:42:54 AM Interpretation: Performing Lab: Notes/Report: H-BMP Reviewed date:07/08/2024 01:05:09 PM Interpretation: Performing Lab: Notes/Report: CBC Fingerstick (in house) Reviewed date:04/15/2024 08:52:48 [...] - 38 plat 130 100 - 400 Urinalysis - Inhouse Reviewed date:11/17/2024 09:54:27 PM Interpretation: Performing Lab: Notes/Report: Color/Clarity yellow/clear Leuk Neg Nitrite Neg Urobili 3.2 Protein Neg pH 6.5 Blood Neg Sp. Gr. 1.015 Ketone Neg Bili Neg Gluc Neg P-Culture, Urine Reviewed date:11/19/2024 09:33:14 AM Interpretation:No growth Performing Lab: Notes/Report: Test performed by Bolong[facility] Trevor [address] , [address] , [place] [address] Waldo Marroquin MD, Staple Side Laster CLIA: [id number] Specimen Source Urine - Void Culture, Urine See Below Final Report : No growth H-BMP Reviewed date:07/08/2024 02:36:15 PM Interpretation:satisfactory Performing Lab: Notes/Report: NA 136 136-145 mmol/L K 4.3 3.5-5.1 mmoL/L CL 99 98-107 mmol/L CO2 31 22.0-30.0 mmol/L GAP 10.3 5-15 mEq/L BUN 14 7-17 mg/dl CREATT 0.60 0.52-1.04 mg/dl GFRAA 119 >60 ML/MIN EGFR 99 >60 ml/min GLU 94 74-100 mg/dl CA 9.4 8.4-10.2 mg/dl Medications Medication SIG (Take, Route, Frequency, Duration) Notes Start Date End Date Status Probiotic Blend - as directed Orally Active [...] Once a day; Duration: 90 days Active Citracal Maximum Plus - as directed Orally Active Magnesium Malate - as directed Active Magnesium Citrate - as directed Orally Active Constulose 10 GM/15ML TAKE 15 ML BY MOUT H ONCE DAILY NEEDED; Duration: 30 Active Vitamin D3 50 MCG (1999 UT) 2 cap(s) ora lly once a day Active Slow Fe 142 (45 Fe) MG 1 tab(s) orally o nce a day Active Vitamin B12 100 MCG as directed Orally Active Immunizations Vaccine Route Administration Date Status [...] Status W/U Status Risk Notes Problem Anemia (352797918) Anemia NOS (285.9) Active confirmed Problem Vitamin D deficiency (09038078) Vitamin D deficiency (E55.9) Active confirmed Problem Osteopenia (540128437) Osteopenia (M85.80) Active confirmed Problem Arthropathy of lumbar facet joint (538738979) Lumbar facet arthropathy (M47.816) Active confirmed Problem Anorexia (11840608) Anorexia (R63.0) Active con firmed Problem Overactive urinary bladder (disorder) (475954139) OAB (overactive bladder) (N32.81) Active confirmed Problem Memory loss (65600708) Memory loss (R41.3) Active confirmed Problem Dementia (41019398) 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) Active confirmed Problem Pick's disease with Pick bodies (disorder) (226570451) Pick's disease (G31.01) Active confirmed Problem Insomnia (936919365) Other insom carola (G47.09) Active confirmed Problem Chronic pain (19188823) Other chronic pain (G89.29) Active confirmed Problem Acquired spondylolisthesis (877930040) Spondylolisthesis , lumbar region (M43.16) Active confirmed Problem Dyspareunia (41751233) Dyspareunia (N94.1) Active confirmed Problem Chest pain (10096558) Other chest pain (R07.89) Active confirmed Problem Degeneration of lumbar intervertebral disc (04801147) Lumbar degenerative disc disease (M51.36) Active confirmed Problem Constipation (07186489) Constipation, unspecified constipation type (K59.00) Active confirmed Problem Acquired hypothyroidism (824485027) Acquired hypothyroidism (E03.9) Active confirmed Problem Hyperlipidemia (15160823) Hyperlipidemia, unspecified hyperlipidemia (E78.5) Active confirmed Problem Iron deficiency anemia (84985960) Other iron deficiency anemia (D50.8) Active confirmed Problem Osteoarthritis of knee (982620854) Primary osteoarthritis of both knees (M17.0) Active confirmed Problem Sciatica (70932049) Right sided sciatica (M54.31) Active confirmed Problem Urinary incontinence (718902871) Urinary incontinence, unspecified type (R32) Active confirmed Problem Arthritis of right hip (4656320089620522) Arthritis of right hip (M16.11) Active confirmed Problem Mild cognitive disorder (951754484) MCI (mild cognitive impairment) (G31.84) Active confirmed Problem Incomplete right bundle branch block (462528497) Incomplete right bundle branch block (I45.10) Active confirmed Vital Signs Heart Rate 76 /min 01/18/2025 Blood pressure diastolic 70 mm Hg 01/18/2025 Height 66 in 01/18/2025 Blood pressure systolic 118 mm Hg 01/18/2025 Weight 140.6 lbs 01/18/2025 BMI 22.69 kg/m2 01/18/2025 Encounters Encounter Location Date Provider Diagnosis [facility] [address] [place] [id number] 03/03/2024 Mik Machipongo Removal of staple Z4 8.02 [facility] [address] [place], [place] [id number] 03/05/2024 Mik Machipongo Acquired hypothyroid ism E03.9 [facility] [address] [facility] [address] [place], [place] [id number] 04/14/2024 Mik Machipongo GE (gastroenteritis) K52.9 [facility] [address] 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 [address] [place], [place] [id number] 11/17/2024 R Oj Daniels UTI (lower urinary t ract infection) N39.0 and OAB (overactive bladder) N32.81 [facility] [address] [facility] [address] [place], [place] [id number] 01/18/2025 Mik Machipongo OAB (overactive blad roshan) N32.81 and Other insomnia G47.09 [facility] [address] [facility] [address] [place], [place] [id number] 02/17/2024 Mik Machipongo [facility] [address] [facility] [address] [place], [place] [id number] 03/20/2024 Mik Machipongo Acquired hypothyroid ism E03.9 and Dementia 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 behavioral disturbance F02.80 [facility] [address] [facility] [address] [place], [place] [id number] 07/24/2024 Mik Machipongo [facility] [address] [facility] [address] [place], [place] [id number] 08/11/2024 Mik Machipongo [facility] [address] [place], [place] [id number] 11/18/2024 Mik Machipongo Acquired hypothyroid ism E03.9 [facility] [address] [place], [place] [id number] 11/18/2024 Mik Machipongo [facility] [address] [place], [place] [id number] 11/19/2024 Mik Machipongo [facility] [address] [place], [place] [id number] 12/10/2024 Mik Machipongo Assessments Encounter Date Diagnosis (ICD Code) Assessment Notes Treatment Notes Treatment Clinical Notes Section Notes 03/03/2024 Removal of staple (ICD-10 - Z48.02) 03/05/2024 Acquired hypothyroidism (ICD-10 - E03.9) 03/20/2024 Acquired hypothyroidism (ICD-10 - E03.9) 04/14/2024 GE (gastroenteritis) (ICD-10 - K52.9) 06/26/2024 Recurrent syncope (ICD-10 - R55) 06/26/2024 Incomplete right bundle branch block (ICD-10 - I45.10) 11/09/2024 Urinary incontinence, unspecified type (ICD-10 - R32) 11/09/2024 Hypogastric pain (ICD-10 - R10.2) 11/17/2024 UTI (lower urinary tract infection) (ICD-10 - N39.0) Will send urine for culture and sensitivity to confirm that the infection has resolved 11/17/2024 OAB (overactive bladder) (ICD-10 - N32.81) If urine culture is negative, consider treatment for overactive bladder 11/18/2024 Acquired hypothyroidism (ICD-10 - E03.9) 01/18/2025 OAB (overactive bladder) (ICD-10 - N32.81) 01/18/2025 Other insomnia (ICD-10 - G47.09) Trial of OTC melatonin 11/09/2024 Acute UTI (ICD-10 - N39.0) 06/26/2024 Hyponatremia (ICD-10 - E87.1) 03/20/2024 Dementia 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 behavioral disturbance (ICD-10 - F02.80) 11/09/2024 BMI 22.0-22.9, adult (ICD-10 - Z68.22) 06/26/2024 Acquired hypothyroidism (ICD-10 - E03.9) 06/26/2024 Pick's disease (ICD-10 - G31.01) 06/26/2024 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.80) 06/26/2024 BMI 22.0-22.9, adult (ICD-10 - Z68.22) Plan Of Treatment No Information Insurance Providers Payer Name Payer Address Payer Phone Subscriber Number Group Number Insured Name Patient Relationship to Insured Coverage Start Date Coverage End Date MEDICARE PART B [address] [address] [place] [id number] CIERARonna KEENAN Peters Self - patient is the insured [facility] [employer] [address] [place] [id number] KEENAN PYLE Self - patient is the insured Medical [...] Bunion Urinary Tract Scope 03/2006 Colonoscopy 2003, 2014 Bunionectomy 09/2007 Bunionectomy 09/2008 RT Hip Replacment- [facility] 09/04 20 RT Cataract 02/01/2021 LT Cataract 02/26/2021 Hospitalization History Reason Date(Month/Year) Tylenol Overdose- [facility] ER 07/17/2020 Spasm of Esphogus- [facility] ER 04/2015
--- OUTSIDE RECORDS SUMMARY | 2025-02-03 14:58 | XMS_ITS | Clinical Summary ---
Author Organization Healthcare Address [address] [place] [address] Care Team Providers Care Landscape Architect And Planner Name Role Phone Unavailable Primary Care Provider [...] 2003 [facility]-Zoster Vaccines (1 of 2) 2003 [facility]-OIMEJ-18 Vaccine (3 - season) 2024 06/29/2020, 06/01/2020 [facility]-Influenza Vaccine (#1) 2024 12/09/2019 [...]
--- OUTSIDE RECORDS SUMMARY | 2025-02-03 14:58 | XMS_ITS | Clinical Summary ---
Author Organization [facility] Address [address] [place] [address] Care Team Providers Care Trade Economist Name Role Phone Mik Marin MD Primary Care Provider [phone] Allergies Active Allergy Reactions Criticality Noted Date Comments Meperidine 01/18/2021 Penicillins Rash High 01/18/2021 Midazolam 01/18/2021 Medications SYNTHROID 100 MCG tablet Take 100 mcg by mouth daily. 01/10/2021 Active Active Problems No known active problems Immunizations Immunization Administration Dates Next Due COVID-19 MODERNA MONOVALENT AGES 12 AND OLDER 02/05/2021,06/29/2020,06/01/2020 Social History Tobacco Use Types Packs/Day Years Used Date Smoking Tobacco: Never Smokeless Tobacco: Never Alcohol Use Standard Drinks/Week Comments Not Currently 0 (1 standard drink = 0.6 oz pur e alcohol) Comments Unknown Sex and Gender Information Value Date Recorded Sex Assigned at Not on file Legal Sex Female 3:41 PM EDT Gender Identity Not on file Sexual Orientation Not on file Last Filed Vital Signs Vital Sign Reading Time Taken Comments Blood Pressure 140/88 01/26/2021 3:04 PM EST Pulse 74 01/26/2021 3:04 PM EST Temperature - - Respiratory Rate - - Oxygen Saturation 98% 01/26/2021 3:04 PM EST Inhaled Oxygen Concentration - - Weight 70.9 kg (156 lb 3.2 oz) 01/18/2021 12:31 PM EDT Height 170.2 cm (5' 7 ) 01/18/2021 12:31 PM EDT Body Mass Index 24.46 01/18/2021 12:31 PM EDT Plan of Treatment Health Maintenance Due Date Last Done Comments Breast Cancer Screening 1953 CT Colonography 1955 Colonoscopy 1955 Colorectal Cancer Screening 1955 FIT-DNA 1955 FIT 1955 FOBT 1955 Hepatitis C Screening 1955 Sigmoidoscopy 1955 Tdap/Td Vaccine >11 yo (1 - Tdap) 1972 Shingles (Shingrix) (1 of 2) 2003 Osteoporosis Screening 2018 Pneumococcal Vaccines >50 yo (2 of 2 - PCV) 03/09/2022 03/09/2021 Annual SDOH Screening 03/18/2024 Influenza Vaccine (#1) 2024 , 12/09/2019 RSV 50+ and (1 - 1-dose 75+ series) 2028 Haemophilus Influenzae Type B (Hib) Vaccine Aged Out No longer eligible b ased on patient's age to complete this topic Hepatitis A (HepA) Vaccine Aged Out N o longer eligible based on patient's age to complete this topic Hepatitis B (HepB) Vaccine Aged Out N o longer eligible based on patient's age to complete this topic Meningococcal ACWY Aged Out No longer eligible based on patient's age to complete this topic Polio (IPV) Aged Out No longer eligi ble based on patient's age to complete this topic Rotavirus (RV) Vaccine Aged Out No lo nger eligible based on patient's age to complete this topic Insurance [employer] Member Subscriber Plan / Payer (Ef fective 2016-Present) Name:Sigrid Leslie Relation to Subscriber:Spouse Name:Sigrid Leslie Date of :1953 (Home) Address: [facility] [place] [address] Payer ID:[id number] (NAIC) Type:Indemnity Address: [address] [place] [phone] Care Teams Trade Economist Relationship Specialty Start Date End Date Mik Marin MD [address] [place] [address] PCP - General Family Medicine 01/19/21
--- OUTSIDE RECORDS SUMMARY | 2025-02-03 14:58 | XMS_ITS | Encounter Summary ---
Author Organization Healthcare Address [address] [place] [address] Care Team Providers Care Atomic Physics Professor Name Role Phone Unavailable Primary Care Provider Unavailabl e Encounter Details Date Type Department Care Team (Late st Contact Info) Description 10/27/2020 [facility] Orders [facility] [address] [place] [address] Gisel Judge MD [address] [facility] [address] [place] [phone] Social History Tobacco Use Types Packs/Day Years [...]
== END 2025-02-02 23:59 | disposition home or self-care (01) ==
LOC: LAB.DROPOF 02-03 13:38
PROVIDERS: PCP Family Medicine; Visit Provider Podiatrist
DX: B35.1 Tinea unguium (principal); M79.674 Pain in right toe(s); M79.675 Pain in left toe(s)
CPT/HCPCS: 87101; 87220